=== PATIENT | female | born 2000 | race Caucasian/White ===

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

== ENCOUNTER 2022-07-10 19:12 | Emergency (ER) | payer OTHER, SELFPAY ==
[2022-07-10 19:29] VITALS: BP 100/61; PULSE 99; RESP 16; O2SAT 100
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
== END 2022-07-10 21:17 | disposition home or self-care (01) ==
PROVIDERS: Emergency Provider Registered Nurse; PCP Student in an Organized Health Care Education/Training Program
DX: R07.89 Other chest pain (principal); J45.909 Unspecified asthma, uncomplicated
CPT/HCPCS: 99211; 99213; G0463

== ENCOUNTER 2023-12-07 13:35 | Emergency (ER) | payer MEDICAID, SELFPAY ==
[2023-12-07 13:57] VITALS: BP 108/51; PULSE 86; RESP 14; TEMP 37; O2SAT 99
--- NOTE | 2023-12-07 14:01 | ED.URI ---
HPI - URI/Sore Throat General Chief Complaint: Upper Respiratory Infection Stated Complaint: Shortness of Breath/Runny Nose/Cough Time Seen by Provider: 12/07/23 14:01 Source: patient, RN notes reviewed and old records reviewed Mode of arrival: ambulatory Limitations: no limitations History of Present Illness HPI Narrative: 23-year-old female to Express Care for complaint of runny nose, sore throat, cough, body aches. Patient states the symptoms have been going on for a week and that she took a COVID test at home that was negative. patient is 15 weeks . Patient denies nausea, vomiting, fever, abdominal pain, allergies Or pertinent medical history. Patient able to tolerate fluids by mouth. Related Data Allergies Allergy/AdvReac Type Severity Reaction Status Date / Time shellfish derived Allergy Unknown Verified 04/09/21 14:41 Review of Systems Review of Systems: All systems reviewed & are unremarkable except as noted in HPI and below Constitutional: Constitutional: Reports body ache(s) and Denies fever(s) Eyes: Eyes: Reports no additional eye complaints ENT: Reports as per HPI, Reports nasal congestion, Reports nasal discharge and Reports sore throat Cardiovascular: Cardiovascular: Reports no additional cardiovascular complaints, Denies chest pain and Denies dyspnea Respiratory: Respiratory: Reports no additional respiratory complaints, Reports cough and Denies dyspnea Musculoskeletal: Musculoskeletal: Reports no additional musculoskeletal complaints Neurologic: Reports system reviewed and no additional complaints, except as documented Psychiatric: Psychiatric: Reports no additional psychiatric complaints PMFSH Past Medical History Medical History Anxiety and depression Asthma Surgical History Surgical History History of tonsillectomy Social History Social History Gender identity (if verbalized by the patient): Female Comments At the time of my signature, I reviewed and agree with the nursing past medical, surgical, social, and family history. There is no relevant family history pertinent to the patient complaint. Exam Const: General: cooperative, comfortable, no acute distress, alert, tired appearing and well nourished Nutritional Appearance: well nourished Orientation/consciousness: patient oriented x3 Limitations: no limitations HENMT: Head: normal to inspection Ears: external ears normal Face/Nose/Sinus: Normal external nose present, Normal nares present, normal facial exam, No erythema and No edema Face and sinus: normal facial exam, no erythema and no edema Mouth: Yes Normal oral and palatal mucosa present Throat: posterior oropharynx abnormal erythema and postnasal drainage Eyes: General: appearance normal, both eyes and all related structures Neck: Neck: normal visual inspection, full ROM and no meningeal signs Lymphatic: no lymphadenopathy noted and no lymphedema noted Chest: Chest palpation & inspection: normal inspection of the chest Resp: Effort & Inspection: normal respiratory effort and able to speak in complete sentences Auscultation: clear to auscultation bilaterally Cardio: Jugular venous distension: no JVD Rate: regular rate Rhythm: regular rhythm Back/Spine/Pelvis: Cervical Spine: cervical ROM normal Skin: General skin exam: normal color, no rashes or lesions noted and turgor normal Neuro: General: patient oriented x3, gait normal, moves all extremities and no meningeal signs Speech: normal speech Gait exam (Neuro): Normal gait present Extrem: General: normal to inspection, full ROM and capillary refill normal Psych: Appearance: grossly normal and well kempt Course Course Emergency Course: Some parts of this dictation were generated by voice recognition software and may cont
== END 2023-12-07 14:45 | disposition home or self-care (01) ==
PROVIDERS: Emergency Provider Nurse Practitioner Family; PCP Student in an Organized Health Care Education/Training Program
DX: J06.9 Acute upper respiratory infection, unspecified (principal); O99.512 Diseases of the respiratory system complicating pregnancy, second trimester; Z3A.15 15 weeks gestation of pregnancy; J45.909 Unspecified asthma, uncomplicated
CPT/HCPCS: 99211; G0463

== ENCOUNTER 2024-10-13 10:37 | Emergency (ER) | payer OTHER, SELFPAY ==
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
--- OUTSIDE RECORDS SUMMARY | 2024-10-13 10:41 | XMS_ITS | Referral Summary ---
Author Organization [facility] [employer] Address [address] [place] [address] Care Team Providers Care Conveyor Maintenance Mechanic Name Role Phone Delores Rivera MD Unavailable [phone] Robinson Rivera MD Primary Care Provider + Nirali Cordero LCSW Unavailable Unavailabl e Source Comments [facility],non-owned Affiliates and Associated Physician Practices is amultiple site organization consisting of ambulatory clinics and hospital sitesin [place], [place], [place] and [place]. This disclosure is being madepursuant to the Care Everywhere program and may not contain all information available regarding this patient. Last updated 18.[facility] Allergies Active Allergy Reactions Criticality Noted Date [...] naloxone HCl (NARCAN) 4 MG/0.1ML nasal spray Lavelle 1 (one) spray into the nose as [...] prim igravida 04/29/2021 Overview (06/24/2021): [facility] [place], Care Everywhere. PNL: B+/I/-/-, HIV NR Pap: [...] status Immunizations Name Administration Dates Next Due CovNuroa primary monoval ent 12+ yr 0.3mL Purple [...] 03/26/2008, 7,07/16/2003,11/19,2002 TDAP (7yrs+) 11/21/2013 VARICELLA 03/26/2008,10/23/2003 Social History Tobacco Use Types Packs/Day Years [...] C ST Body Mass Index - - Functional Status Functional Status Response Date of Assess ment Is person deaf or have serious hearing difficult y? No 06/08/2018 Is person blind or have serious difficulty seein g? No 06/08/2018 Does person have serious dif ficulty walking/climbing stairs? No 06/08/2018 Does person have difficulty dressing/bathing? No 06/08/2018 Does person have difficulty doing errands alone? No 06/08/2018 Cognitive Status Response Date of Assessm ent Does person have difficulty concentrating/remembering/making decisions? No 06/08/2018 Plan of Treatment Not on file Procedures Procedure Name Priority Date/Time Associated Diagnosis [...] AMPLIFIED PROBE (STL) (06/24/2021 1:23 PM CDT) Chlamydia Amplified Probe Negative Negative 06/25/2021 2:47 AM CDT [facility] GC Amplified Probe Negative Negative 06/25/2021 2:47 AM CDT [facility] Microbiology URINE / Unknown Collection / Unknown 06/24/2021 1:23 PM CDT 06/24/2021 2:16 PM CDT Narrative [facility] - 06/25/2021 2:47 AM CDT Results based on detection/no detection of ribosomal RNA by amplified method. Blanca Rodrigues [employer] [facility] - MICROBI OLOGY ORDERABLES [facility] [address] [place] [address], [facility] [phone] * HIV-1 HIV-2 ANTIBODY + HIV P24 AG PANEL (04/29/2021 2:18 PM CDT) HIV1/2 Ab + P24 Ag Non Reactive Non Reactive 04/29/2021 4:34 PM CDT [facility] Blood BLOOD SPECIMEN / Unknown Venipuncture / Unknown 04/29/2021 2:18 PM CDT 04/29/2021 3:10 PM CDT Narrative [facility] - 04/29/2021 4:34 PM CDT No Laboratory evidence of HIV infection. Sho Chung MD LAB - CHEMISTRY OR DERABLES Performing Organization Address City/[facility]/ZIP Co de Phone Number [facility] [address] [place] [address] * HEPATITIS C ANTIBODY (04/29/2021 2:18 PM CDT) Pathologist [facility] HCV Antibody Screen Non Reactive Non Reactive 04/29/2021 4:34 PM CDT [facility] Blood BLOOD SPECIMEN / Unknown Venipuncture / Unknown 04/29/2021 2:18 PM CDT 04/29/2021 3:09 PM CDT Narrative [facility] - 04/29/2021 4:34 PM CDT Non Reactive - Antibodies to Hepatitis C virus (HCV) were not detected, result does not exclude early acute HCV infection. Sho Chung MD LAB - CHEMISTRY OR DERABLES [facility] [address] [place] [address] from Last 3 Months or Most Recently Relevant to Health Maintenance Insurance Payer Benefit Plan / Group Subscriber ID Effective Dates Phone Address Type MEDICAID [employer] [place] A[employer] BETTER HEALTH [facility] MEDICAID [id number] 06/21/2023-Pre sent [address] [place] [address] Medicaid Managed Care [place] MEDICAID - [facility] COMMUNITY PLAN C/COMMUNIT Y PLAN MEDICAID [id number] Effective for all dates [phone] [address] [place] [address] Medicaid Managed Care MEDICAID - OUT OF STATE MEDICAID [place] PUBLIC AID [id number] Effective for all dates [address] [address] [place] [address] Medicaid MEDICAID - OUT OF STATE MEDICAID [place] [id number] Effective for all dates [address] [address] [place] [address] Medicaid MEDICAID - OUT OF STATE MEDICAID [place] PUBLIC AID [id number] Effective for all dates [address] [address] [place] [address] Medicaid MEDICAID - OUT OF STATE MEDICAID [place] PUBLIC [place] [id number] Effective [place] [place] [address] Medicaid MEDICAID - OUT OF [facility] MEDICAID - [place] PUBLIC AID [id number] Effective [place] [address] [place] [address] Medicaid MEDICAID - OUT OF STATE MEDICAID [facility] PUBLIC AID [id number] Effective for all dates [address] [address] [place] [address] Medicaid [facility] MEDICAID [id number] Effective for all dates [phone] ATTN CLAIMS DEPARTMENT [address] [address] Medicaid Managed Care [facility] [employer] MEDICAID [id number] Effective for all dates [phone] ATTN CLAIMS DEPARTMENT 1 [facility], [address] [address] Medicaid Managed Care MEDICAID - OUT OF STATE MEDICAID [place] PUBLIC AID [id number] 07/21/2018-Pre sent [address] [address] [place] [address] Medicaid MEDICAID - OUT OF STATE MEDICAID - [place] PUBLIC AID [id number] Effective [place] [address] Medicaid MEDICAID - OUT OF STATE MEDICAID - [place] PUBLIC AID [id number] Effective for all dates [address] [address] [place] [address] Medicaid MEDICAID - OUT OF STATE MEDICAID - [place] PUBLIC AID [id number] Effective for all dates [address] [address] [place] [address] Medicaid MEDICAID - OUT OF STATE MEDICAID - [place] PUBLIC AID [id number] Effective for all dates [address] [address] [place] [address] Medicaid MEDICAID - OUT OF STATE MEDICAID [facility] PUBLIC AID [id number] Effective for all dates [address] [address] [place] [address] Medicaid [facility] [id number] Effective for all dates [address] [address] [place] [address] Medicaid Managed Care MEDICAID - OUT OF STATE MEDICAID - [place] PUBLIC AID [id number] Effective for all dates [address] [address] [place] [address] Medicaid [employer] Personal/Family Other [address] [place] [address] [employer] Personal/Family Other [address] [place] [address] [employer] Personal/Family Other [address] [place] [address] [employer] Personal/Family Other [address] [place] [address] [employer] Personal/Family Other [address] [place] [address] [employer] MILYSERVICES Personal/Family Other [address] [place] [address] [employer] Personal/Family Other [address] [place] [address] [employer] MIL[employer] Personal/Family Other [address] [place] [address] [employer] LISBETHERVICES Personal/Family Other [address] [place] [address] [employer] MILMICHELERVICES Personal/Family Other [address] [place] [address] [employer] Personal/Family Other [address] [address] [employer] MILMICHELERVICES Personal/Family Other [address] [address] JULIANA BOATENG Personal/Family Other [address] [place] [address] Advance Directives * Full Code (Latest Code Status on File) Date Activated Date Inactivated Comments 06/08/2018 4:22 AM 06/15/2018 9:06 AM * Full Code Date Activated Date Inactivated Comments 02/28/2018 5:54 AM 03/09/2018 3:41 PM Care Teams Conveyor Maintenance Mechanic Relationship Specialty Start Date End Date Robinson Rivera MD PCP - General Pediatrics 04/08/19 Delores Rivera MD 06/10/18 Nirali Cordero LCSW Outpatient Pediatric Orthodontist 05/27/21
--- OUTSIDE RECORDS SUMMARY | 2024-10-13 10:41 | XMS_ITS | Referral Summary ---
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 Interpretive Data Reference Interval Normal >/= 90 mL/min/1.73m2 Mildly decreased* 60 - 89 mL/min/1.73m2 Mildly to moderately decreased 45 - 59 mL/min/1.73m2 Moderately to severely decreased 30 - 44 mL/min/1.73m2 Severely decreased 15 - 29 mL/min/1.73m2 Kidney Failure < 15 mL/min/1.73m2 *Relative to young adult level Estimated glomerular filtration rate is determined by the 2020 CKD-EPI equation recommended by the National Kidney Foundation (A Unifying Approach to GFR Estimation: Recommendations of the NKF-ASK Task Force on Reassessing the Inclusion of Race in Diagnosing Kidney Disease, JASN 2020). The CKD-EPI equation should not be used for patients with unstable renal function and has not been validated in children and those over 70. Current interpretive data was last reviewed 2021. Blood 08/04/2024 10:0 4 AM TEXTILE CONVERSION MANAGER 08/04/2024 10:07 AM TEXTILE CONVERSION MANAGER us Savannah De Santiago MD LAB BLOOD ORDERABLE S Final Result [facility] ([place] 1 [facility] Department [place] [address] * Differential, auto (08/04/2024 10:04 AM TEXTILE CONVERSION MANAGER) Neutrophil abs 1.8 1.5 - 6.5 K/cumm Imm gran abs 0.0 0.0 - 0.1 K/cumm [facility] [place] Lymphocyte abs 1.8 0.8 - 3.3 K/cumm [facility] [place] Monocyte abs 0.4 0.2 - 0.8 K/cumm [facility] [place] Eosinophil abs 0.1 0.0 - 0.5 K/cumm [facility] [place] Basophil abs 0.0 0.0 - 0.1 K/cumm [facility] [place] Neutrophil pct 43.1 % [facility] ([place]) Comment: Interpretive Data Percent cell count reference ranges are not reported, since discordance with absolute values may lead to misinterpretation of CBC data. Current Interpretive Data was last revised on 2017. Imm gran pct 0.2 % [facility] ([place] Comment: Interpretive Data Percent cell count reference ranges are not reported, since discordance with absolute values may lead to misinterpretation of CBC data. Current Interpretive Data was last revised on 2017. Lymphocyte pct 43.6 % [facility] ([place] Comment: Interpretive Data Percent cell count reference ranges are not reported, since discordance with absolute values may lead to misinterpretation of CBC data. Current Interpretive Data was last revised on 2017. Monocyte pct 9.2 % [facility] ([place] Comment: Interpretive Data Percent cell count reference ranges are not reported, since discordance with absolute values may lead to misinterpretation of CBC data. Current Interpretive Data was last revised on 2017. Eosinophil pct 2.9 % [facility] ([place] Comment: Interpretive Data Percent cell count reference ranges are not reported, since discordance with absolute values may lead to misinterpretation of CBC data. Current Interpretive Data was last revised on 2017. Basophil pct 1.0 % [facility] ([place] Comment: Interpretive Data Percent cell count reference ranges are not reported, since discordance with absolute values may lead to misinterpretation of CBC data. Current Interpretive Data was last revised on 2017. Blood 08/04/2024 10:0 4 AM TEXTILE CONVERSION MANAGER 08/04/2024 10:07 AM TEXTILE CONVERSION MANAGER Jimmie Vargas MD LAB BLOOD ORDERABLES Final R esult [facility] ([place]) 1 [facility] Department [place] [address] * CBC with auto differential (08/04/2024 10:04 AM TEXTILE CONVERSION MANAGER) WBC 4.1 3.8 - 9.9 K/cumm Hgb 13.3 11.9 - 15.5 g/dL [facility] [place] Hct 38.4 35.6 - 45.5 % [facility] [place] Plt 258 150 - 400 K/cumm [facility] [place] MPV 10.2 9.1 - 12.3 fL [facility] [place] RBC 4.44 3.90 - 5.20 M/cumm [facility] [place] MCV 86.5 81.3 - 96.4 fL [facility] [place] MCH 30.0 27.1 - 33.3 pg [facility] [place] MCHC 34.6 32.3 - 35.7 g/dL [facility] [place] RDW CV 12.6 11.1 - 14.9 % [facility] [place] RDW SD 39.9 35.7 - 48.1 fL [facility] [place] NRBC abs 0.00 0.00 - 0.01 K/cumm [facility] [place] Blood 08/04/2024 10:0 4 AM TEXTILE CONVERSION MANAGER 08/04/2024 10:07 AM TEXTILE CONVERSION MANAGER us Jimmie Vargas MD LAB BLOOD ORDERABLES Final R esult Performing Organization Address City/[facility]/ZIP Co de Phone Number [facility] ([place]) [address] [place] [address] [place] [address] * ABO/Rh (08/04/2024 10:04 AM TEXTILE CONVERSION MANAGER) ABO/Rh B Positive Blood 08/04/2024 10:0 4 AM TEXTILE CONVERSION MANAGER 08/04/2024 10:07 AM TEXTILE CONVERSION MANAGER Narrative [facility] ([place]) - 08/04/2024 11:00 AM TEXTILE CONVERSION MANAGER Has the patient had Daratumumab or Isatuximab in the past 6 months?->Unknown us Savannah De Santiago MD LAB BLOOD BANK TEST ORDERABLES Final Result Performing Organization Address City/[facility]/ZIP Co de Phone Number [facility] ([place]) [address] [place] [address] [place] [address] * Antibody screen (08/04/2024 10:04 AM TEXTILE CONVERSION MANAGER) Carlotta, indirect, Gel Interpretation Negative ABSC Blood 08/04/2024 10:0 4 AM TEXTILE CONVERSION MANAGER 08/04/2024 10:07 AM TEXTILE CONVERSION MANAGER Narrative [facility] ([place] - 08/04/2024 11:00 AM TEXTILE CONVERSION MANAGER Has the patient had Daratumumab or Isatuximab in the past 6 months?->Unknown us Savannah De Santiago MD LAB BLOOD BANK TEST ORDERABLES Final Result [facility] ([place]) 1 [facility] Department [place] [address] * (ABNORMAL) Comprehensive metabolic panel (08/04/2024 10:04 AM TEXTILE CONVERSION MANAGER) Sodium 139 135 - 145 mmol/L Potassium, pl 4.3 3.3 - 4.9 mmol/L [facility] [place] Chloride 108 97 - 110 mmol/L [facility] [place] CO2 21(L) 22 - 32 mmol/L [facility] [place] Anion gap 10 2 - 15 mmol/L [facility] [place] BUN 8 6 - 25 mg/dL [facility] [place] Creatinine 0.77 0.60 - 1.10 mg/dL [facility] [place] Glucose 87 70 - 199 mg/dL [facility] ([place] Comment: Interpretive Data Fasting glucose >/= 126 mg/dl is diagnostic for diabetes. Fasting is defined as no caloric intake for at least 8 hours. Fasting glucose between 100 mg/dl to 125 mg/dl is diagnostic of prediabetes. In a patient with classic symptoms of hyperglycemia or hyperglycemic crisis, a random glucose >/= 200 mg/dl is diagnostic for diabetes. In the absence of unequivocal hyperglycemia, results should be confirmed by repeat testing. The classification and Diagnosis of Diabetes Diabetes Care 2021; 46: S19-S40. Current interpretive data was last revised 2022. Calcium 9.5 8.5 - 10.3 mg/dL [facility] [place] Bilirubin, total 0.4 0.1 - 1.2 mg/dL [facility] [place] Protein, pl 7.4 6.5 - 8.5 g/dL [facility] [place] Albumin 4.8 3.5 - 5.0 g/dL [facility] [place] Alk phos 42 40 - 130 Units/L [facility] [place] ALT 12 7 - 45 Units/L [facility] [place] AST 13 10 - 45 Units/L [facility] [place] Blood 08/04/2024 10:0 4 AM TEXTILE CONVERSION MANAGER 08/04/2024 10:07 AM TEXTILE CONVERSION MANAGER Jimmie Vargas MD LAB BLOOD ORDERABLES Final R esult [facility] ([place]) 1 [facility] Department [place] [address] * Hepatitis C antibody Blood (11/21/2023 2:23 PM CDT) Hep C Ab Nonreactive Nonreactive Comment: Interpretive Data Nonreactive: Antibodies to HCV not detected. Does NOT exclude the possibility of recent exposure to HCV. Equivocal: Equivocal for HCV antibodies. Supplemental molecular testing will be automatically performed to determine infection status in accordance with current CDC screening recommendations. Reactive: Positive for HCV antibodies. This may represent current or past HCV infection. Supplemental molecular testing will be automatically performed to determine current infection status in accordance with current CDC screening recommendations. Interpretive data was last revised on 2019. Testing performed by: [facility], [address] [place] [address]., [id number] Blood 11/21/2023 2:23 PM CDT 11/21/2023 8:21 PM CDT Jennifer Alford DO LAB MICROBIOLOGY - GENE RAL ORDERABLES Final Result Performing Organization Address City/[facility]/ZIP Co de Phone Number AIDAN [address] [facility] [place] [address] * N. gonorrhoeae/C. trachomatis Amplification Thin prep (10/25/2023 11:48 AM TEXTILE CONVERSION MANAGER) C. trachomatis Not Detected [facility] Comment:Testing performed by : [facility], [address] [place] [address]., [id number] N. gonorrhoeae Not Detected AIDAN Comment: Interpretive Data This assay detects Chlamydia trachomatis and Neisseria gonorrhoeae by nucleic acid amplification testing (NAAT). This assay has been cleared by the [place] Food and Drug administration. The performance characteristics of this test have been verified by the [facility] Molecular Infectious Disease laboratory. The performance characteristics of this test have not been evaluated in individuals less than 14 years of age. Current Interpretive Data was last revised on 2023. Testing performed by: [facility], [address] [place]., [address] Thin prep 10/25/2023 11:4 8 AM TEXTILE CONVERSION MANAGER 10/26/2023 12:38 PM TEXTILE CONVERSION MANAGER us Jennifer Alford DO LAB MICROBIOLOGY - GENE RAL ORDERABLES Final Result [address] [place] [address] [facility] * Pap with reflex to High Risk HPV and Genotyping (Cytology Component) (10/25/2023 10:04 AM TEXTILE CONVERSION MANAGER) Thin prep (Pap test) 10/25/2023 10:04 AM TEXTILE CONVERSION MANAGER 10/25/2023 10:04 AM TEXTILE CONVERSION MANAGER Narrative PATHOLOGY CH - 10/27/2023 3:00 PM TEXTILE CONVERSION MANAGER [facility] Department of Pathology [address] [place] [id number] Final Report Note to Patients: This report may contain a detailed description of human tissue sent by a health care provider to the laboratory for pathologic evaluation. The content of this report is essential for diagnosis and may provide important critical findings. This information may be unfamiliar to patients to review without a medical professional present. It is advised that the patient review this report in the presence of a health care provider who can answer questions and explain the details. Patient Name: GUILLERMINA SOUZA Address: [address] [place] [address] Gender: F : 2000 (Age: 23) Service: Location: Hospital #: [id number] Patient Type: SPECIMEN Taken: 10/25/2023 Received: 10/25/2023 Accessioned:: 10/26/2023 Reported: 10/27/2023 Physician(s): Joe Chew D.O. Diagnosis: SOURCE OF SPECIMEN Imaged Thinprep Pap Test w/ Reflex HPV - Installer Soft Top Cytologic Material: STATEMENT OF ADEQUACY - Satisfactory for evaluation; endocervical/transformation zone component present GENERAL CATEGORIZATION: - Negative for intraepithelial lesion or malignancy INTERPRETATION: - Numerous inflammatory cells present FRANCIS Armenta(ASCP) Report Electronically Reviewed and Signed Out By FRANCIS Armenta(ASCP) 10/27/2023 15:00:31Specimen(s) Received: A: Imaged Thinprep Pap Test w/ Reflex HPV - Installer Soft Top Cytologic Material Clinical History: Last Menstrual Period: 08/24/23 Menstrual History: The Pap test is a screening test used to aid in the detection of cervical cancer and its precursors. It should not be the sole means by which malignant and premalignant lesions are diagnosed. Both false negative and false positive results may occur. It also has poor sensitivity for the detection of endometrial lesions and should not be used to evaluate suspected endometrial abnormalities. For these reasons it is most important to obtain Pap tests at regular intervals. The performance characteristics of some immunohistochemical stains, fluorescence in-situ hybridization tests and immunophenotyping by flow cytometry cited in this report (if any) were determined by the Surgical Pathology Department at [facility] as part of an ongoing senior quality control technician program and in compliance with federally mandated regulations drawn from the Clinical Laboratory Improvement Act of 1988 (CLIA '88). Some of these tests rely on the use of analyte specific reagents and are subject to specific labeling requirements by the [place] Food and Drug Administration. Such diagnostic tests may only be performed in a facility that is certified by the Department of Health and Human Services as a high complexity laboratory under CLIA '88. The FDA has determined that such clearance or approval is not necessary. This test is used for clinical purposes. It should not be regarded as investigational or for research. Nevertheless, federal rules concerning the medical use of analyte specific reagents require that the following disclaimer be attached to the report: This test was developed and its performance characteristics determined by the Surgical Pathology Department [facility]. It has not been cleared or approved by the [place]. [place]. Food and Drug Administration. Jennifer Alford DO LAB CYTOLOGY ORDERABLES Final Result PATHOLOGY [address] [place] [address] from Last 3 Months or Most Recently Relevant to Health Maintenance Insurance [facility] Advance Directives For more information, please contact: [phone] * Full Code (Latest Code Status on File) Date Activated Date Inactivated Comments 05/02/2024 8:45 AM 05/05/2024 4:20 AM * Full Code Date Activated Date Inactivated Comments 05/02/2024 5:42 AM 05/02/2024 8:45 AM Full CPR in case of cardiopulmonary arrest Care Teams Analytics Leader Relationship Specialty Start Date End Date Robinson Rivera MD PCP - General 04/06/22 Robinson Rivera MD Pediatrics 04/06/22 Robinson Rivera MD 08/29/18 Raegan Parra 02/28/18 Jennifer Alford DO [address] [place] [address] Consulting Physician Obstetrics and Gynecology 05/04/24
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
--- OUTSIDE RECORDS SUMMARY | 2024-10-13 10:41 | XMS_ITS | Patient Health Summary ---
Author Organization [facility] Address [address] [place] [address] Care Team Providers Care Junk Removal Specialist Name Role Phone Delores Rivera MD Unavailable [phone] Robinson Rivera MD Primary Care Provider + Nirali Cordero LCSW Unavailable Unavailabl e Note from [facility],non-owned Affiliates and Associated Physician Practices is amultiple site organization consisting of ambulatory clinics and hospital sitesin [place], [place], [place] and [place]. This disclosure is being madepursuant to the Care Everywhere program and may not contain all information available regarding this patient. Last updated 18.[facility] Allergies * Sulfamethoxazole W-Trimethoprim(Urticaria) -Medium Criticality * Cefuroxime(Urticaria) -Medium Criticality * Shellfish Allergy(Urticaria) -Medium Criticality * Sulfamethoxazole(Urticaria) -Medium Criticality * Tramadol(Urticaria) -Medium Criticality * Trimethoprim(Urticaria) -Medium Criticality * Penicillins(Urticaria) -Medium Criticality,Inactive * Trazodone(Urticaria) -Medium Criticality,Inactive Medications * Be aware that medications may not be up to date on this document. Alwaysverify current medications with the patient. * acyclovir (ZOVIRAX) 400 MG tablet Take 400 mg by mouth 2 times daily * Vit-Fe Fumarate-FA ( VITAMINS) 28-0.8 MG TABS(Started 04/12/2021) Take 1 tablet by mouth once daily * naloxone HCl (NARCAN) 4 MG/0.1ML nasal spray(Started 04/29/2021) [place] 1 (one) spray into the nose as needed (May repeat every 2 min in alternating nostrils until emergency medical help arrives for overdose) * plus iron (NATATAB) 29-1 MG tablet(Started 04/29/2021) Take 1 (one) tablet by mouth once daily 11 refills by 04/29/2022 * albuterol HFA (PROVENTIL;VENTOLIN;PROAIR) 108 (90 Base) MCG/ACT inhaler (Started 04/29/2021) Inhale 2 (two) puffs by mouth every 6 hours as needed for Shortness of Breath or Wheezing 4 refills by 04/29/2022 * pyridoxine (VITAMIN B-6) 25 MG tablet(Started 04/29/2021) Take 2 (two) tablets by mouth 3 times daily 2 refills by 04/29/2022 * doxylamine (UNISOM) 25 MG tablet(Started 04/29/2021) Take 1 (one) tablet by mouth at bedtime 2 refills by 04/29/2022 * ondansetron, disintegrating, (ZOFRAN ODT) 4 MG tablet(Started 04/29/2021) Take 1 (one) tablet by mouth every 6 hours as needed for Nausea/Vomiting Allow tablet to dissolve on the tongue 1 refill by 04/29/2022 * nicotine ( NICOTINE TRANSDERMAL SYSTEM) 14 MG/24HR patch(Started 05/27/2021) Apply 1 (one) patch to skin once [...] patch should be applied in the morning. 3 refills by 05/27/2022 * nicotine polacrilex (COMMIT) 2 MG(Started 06/24/2021) Take 1 (one) Each by mouth as needed Dissolve slowly in mouth over 20-30 minutes; occasionally movelozenge from one side of mouth to the other until completely dissolved. Minimize swallowing; do notchew or swallow. MAX: 20 lozenges/day Reasons: Nicotine Addiction * fluticasone-salmeterol (ADVAIR/WIXELA) 250-50 MCG/DOSE inhaler(Started 06/24/2021) Inhale 1 (one) puff by mouth 2 times daily Reasons: Asthma Active Problems Problem Noted Date Diagnosed Date 26 weeks gestation of 07/21/2021 Trichomonas vaginitis 05/31/2021 Group B Streptococcus urinar y tract infection affecting in second trimester 05/31/2021 Gonorrhea affecting 05/27/2021 Screening, , for risk of pre-term labor 05/27/2021 High risk social situation 05/11/2021 Marijuana use 05/11/2021 Supervision of high-risk of young prim igravida 04/29/2021 Mild intermittent asthma without complication Screening, , for malformation by ultras ound 04/29/2021 Opioid use disorder, severe, in sustained remiss ion 04/27/2021 Methamphetamine use disorder, severe, in early r emission 04/27/2021 Migraine without aura and wi thout status migrainosus, not intractable 04/12/2020 Depression PTSD (post-traumatic stress disorder) Resolved Problems Problem Noted Date Diagnosed Date Resolved Date Suspected UTI 05/27/2021 06/25/2021 Acute knee pain 03/04/2018 03/08/2018 STD (sexually transmitted disease) 03/01/2018 03/07/2018 Immunizations * Covid Pfizer primary monovalent 12+ yr 0.3mL Purple cap(Given 05/21/2021, 04/29/2021) * DTAP, HISTORIC VACCINE(Given 04/17/2007) * DTaP VACCINE IM (6wk-6yrs)(Given 07/16/2003, 02/17/2003, 2002, 2002) * HEP A PEDS 2 DOSE(Given 09/03/2004) * HEP B VACCINE, PED/ADOL(Given 02/17/2003, 2002, 2002) * HIB VACCINE(Given 10/23/2003, 02/17/2003, 2002, 2002) * Hep A Peds 3 Dose(Given 01/05/2006) * Human Papilloma Virus Ninevalent Vaccine(Given 03/22/2018, 07/31/2015, 05/26/2015) * INFLUENZA VACCINE, QUADR. (FLUZONE; FLULAVAL; FLUARIX; AFLURIA QUADRIVALENT; 6MO+), 0.5 ML (IIV4)(Given 05/21/2021, 05/13/2019, 06/06/2018, 05/26/2015) * MENINGOCOCCAL CONJUGATE (MCV4P)(Given 11/21/2013) * MENINGOCOCCAL MCV4O(Given 07/19/2018) * MMR(Given 03/26/2008, 07/16/2003) * PNEUMOCOCCAL PCV7 CONJ, PEDS(Given 02/17/2003, 2002, 2002) * POLIO IPV(Given 03/26/2008, 04/16/2007, 07/16/2003, 2002, 2002) * TDAP (7yrs+)(Given 11/21/2013) * VARICELLA(Given 03/26/2008, 10/23/2003) Social History Tobacco Use Types Packs/Day Years [...] C ST Body Mass Index - - Procedures * SONOGRAM - COMPLETE(Performed 06/24/2021) Performed for Opioid use disorder, severe, in sustained remission ([facility]), Methamphetamine use disorder, severe, in early remission ([facility]) * CULTURE URINE(Performed 06/24/2021) Performed for Group B Streptococcus urinary tract infection affecting in second trimester([facility]) * CHLAMYDIA + GC AMPLIFIED PROBE(Performed 06/24/2021) Performed for Gonorrhea affecting in second trimester ([facility]) * TRICHOMONAS VAGINALIS AMPLIFIED PROBE(Performed 06/24/2021) Performed for Trichomonas vaginitis * URINE DRUG SCREEN IMMUNOASSAY(Performed 06/24/2021) Performed for Supervision of high-risk of young primigravida ([facility]) * GLUCOSE PROTEIN KETONE URINE - POINT OF CAR(Performed 06/24/2021) Performed for Supervision of high-risk of young primigravida ([facility]) * URINE MICROSCOPIC ONLY REFLEX TO CULTURE(Performed 05/27/2021) Performed for Dysuria * URINALYSIS REFLEX MICROSCOPIC REFLEX CULTURE(Performed 05/27/2021) Performed for Dysuria * CULTURE URINE(Performed 05/27/2021) Performed for Dysuria * TRICHOMONAS VAGINALIS AMPLIFIED PROBE(Performed 05/27/2021) Performed for Vaginal discharge during in second trimester ([facility]) * GLUCOSE PROTEIN KETONE URINE - POINT OF CAR(Performed 05/27/2021) Performed for Supervision of high-risk of young primigravida ([facility]) * SONOGRAM - COMPLETE(Performed 05/27/2021) Performed for Methamphetamine use disorder, severe, in early remission ([facility]), Opioid use disorder, severe, in sustained remission ([facility]) * URINE DRUG SCREEN IMMUNOASSAY(Performed 05/27/2021) Performed for Supervision of high-risk of young primigravida ([facility]) * URINE DRUG SCREEN IMMUNOASSAY(Performed 04/29/2021) Performed for Supervision of high-risk of young primigravida ([facility]) * CULTURE URINE(Performed 04/29/2021) Performed for Supervision of high-risk of young primigravida ([facility]) * TRICHOMONAS VAGINALIS AMPLIFIED PROBE(Performed 04/29/2021) Performed for Supervision of high-risk of young primigravida ([facility]) * TYPE + SCREEN PANEL(Performed 04/29/2021) Performed for Supervision of high-risk of young primigravida (HCC) * TSH REFLEX FREE T4(Performed 04/29/2021) Performed for Supervision of high-risk of young primigravida (HCC) * CYSTIC FIBROSIS MUTATION PANEL(Performed 04/29/2021) Performed for Supervision of high-risk of young primigravida (HCC) * RUBELLA ANTIBODY IGG(Performed 04/29/2021) Performed for Supervision of high-risk of young primigravida (HCC) * SYPHILIS ANTIBODY CASCADING REFLEX(Performed 04/29/2021) Performed for Supervision of high-risk of young primigravida (HCC) * CBC W AUTO DIFFERENTIAL(Performed 04/29/2021) Performed for Supervision of high-risk of young primigravida (HCC) * HEPATITIS B SURFACE ANTIGEN W RFLX CONFIRMATION(Performed 04/29/2021) Performed for Supervision of high-risk of young primigravida (HCC) * HEPATITIS C ANTIBODY(Performed 04/29/2021) Performed for Supervision of high-risk of young primigravida (HCC) * HEPATITIS B SURFACE ANTIGEN W RFLX CONFIRMATION(Performed 04/29/2021) Performed for Supervision of high-risk of young primigravida (HCC) * HIV-1 HIV-2 ANTIBODY + HIV P24 AG PANEL(Performed 04/29/2021) Performed for Supervision of high-risk of young primigravida (HCC) * COMPREHENSIVE METABOLIC PANEL(Performed 04/29/2021) Performed for Supervision of high-risk of young primigravida (HCC) * SONOGRAM - COMPLETE(Performed 04/29/2021) Performed for Methamphetamine use disorder, severe, in early remission ([facility]), Opioid use disorder, severe, in sustained remission ([facility]), Establish gestational age, ultrasound ([facility]) * EEG(Performed 11/21/2018) Performed for Seizure ([facility]) * XR PELVIS W BILAT HIP 2VW(Performed 09/28/2018) Performed for Hip impingement syndrome, left * XR PELVIS 1 OR 2VW(Performed 09/28/2018) Performed for Arthralgia of hip, unspecified laterality * BACTERIAL VAGINOSIS + YEAST SMEAR(Performed 06/14/2018) * TRICHOMONAS VAGINALIS AMPLIFIED PROBE(Performed 06/14/2018) * XR CHEST 2VW(Performed 06/13/2018) Performed for Chest pain, unspecified type * URINALYSIS W/MICROSCOPIC REFLEX TO CULTURE(Performed 06/08/2018) * DRUG SCREEN TOX COMPREHESIVE PANEL(Performed 06/08/2018) * CULTURE URINE(Performed 06/08/2018) * CHLAMYDIA + GC AMPLIFIED PROBE(Performed 06/08/2018) * HCG URINE QUAL POCT NOTIFICATION(Performed 06/08/2018) * HCG URINE QUALITATIVE(Performed 06/08/2018) Performed for Vaginal discharge * RPR(Performed 06/08/2018) * HIV-1 HIV-2 ANTIBODY + HIV P24 AG PANEL(Performed 06/08/2018) * EKG 15-LEAD(Performed 06/08/2018) * CHLAMYDIA + GC AMPLIFIED PROBE(Performed 03/08/2018) * EKG 15-LEAD(Performed 03/06/2018) * EKG 15-LEAD(Performed 03/03/2018) * EKG 15-LEAD(Performed 02/28/2018) * URINALYSIS W/MICROSCOPIC REFLEX TO CULTURE(Performed 02/28/2018) * DRUG SCREEN TOX COMPREHESIVE PANEL(Performed 02/28/2018) * CULTURE URINE(Performed 02/28/2018) * CHLAMYDIA + GC AMPLIFIED PROBE(Performed 02/28/2018) * COMPREHENSIVE METABOLIC PANEL(Performed 02/28/2018) * CBC W AUTO DIFFERENTIAL(Performed 02/28/2018) * RPR(Performed 02/28/2018) * HIV-1 HIV-2 ANTIBODY + HIV P24 AG PANEL(Performed 02/28/2018) * XR SCOLIOSIS 1VW(Performed 03/24/2014) Performed for Scoliosis (and kyphoscoliosis), idiopathic Results * SONOGRAM - COMPLETE (06/24/2021 1:55 PM CDT) Only the most recent of3 resultswithin the time period is included. Anatomical Region Laterality Modality Other 06/24/2021 1:55 PM CDT Narrative 06/24/2021 3:18 PM CDT [facility] PHONE: FAX: Pat. Name: GUILLERMINA SOUZA. No: [id number] Study Date: 06/24/2021 1:55pm , Age: 13 2000, 20 Pregnancies: 1 Height: 62 in Weight: 190 lb LMP: Unknown GA by Base: 22w5d AGGIE: 10/23/2021 GA by US: 22w3d AGGIE: 10/25/2021 GA Selected: 22w5d (From [facility]) AGGIE: 10/23/2021 Referring MD: Sho Chung MD Spanish Lecturer: Makeda Santiago CPT4: 94139 BMI: 34.75 Hist/Ind: Incomplete anatomic survey History of heroin use Weight loss Teen Class I obesity NIPT: low risk (female) MEASUREMENTS & AGE GROWTH EVALUATION Measurement GA Range Srce %for GA Ratios ----- ---- ------- BPD 5.6 cm 23w1d ([id number]) Hadl BPD 63% FL/BPD 0.69 HC 21.4 cm 23w3d (96v1a-72w4q) Hadl HC 66% FL/AC 0.22 (0.20 - 0.24) AC 17.3 cm 22w2d (25y2e-73a8r) Hadl AC 27% HC/AC 1.24 (1.04 - 1.23* FL 3.9 cm 22w3d (78i8b-12g8w) Hadl FL 29% CI 0.72 (0.70 - 0.86) HL 3.8 cm 23w1d (84m9i-28p5r) Aditya HL 57% GA for sonogram 22w3d (22w3m-69v4w) Weight Estimate: based on (BPD,HC,AC,FL) [place] Weight: 506 gm (432-580gm) [place]loc : 1lbs, 1oz Normal: 541 gm (406-676gm) [place] Wt% 32% for 22w5d Heart Rate: 155 bpm Amniotic Fluid Index: 05.3cm (Deepest Pocket) EVAL, PLACENTA Presentation: cephalic Placenta: anterior Heart Rate: 155 bpm Amniotic Fluid Volume: normal Anatomy!Normal!Abnormal!Suboptimal!Prev. Seen!Comments Cranium ! ! ! ! x ! Mdl (CSP/Thal! ! ! ! x ! Ventricles ! ! ! ! x ! Choroid Plexu! ! ! ! x ! Cerebellum ! ! ! ! x ! Cerebellar Ve! ! ! ! x ! Cisterna M. ! ! ! ! x ! Nuchal Fold ! ! ! ! x ! Orbits ! x ! ! ! ! Profile ! x ! ! ! ! Nasal Bone ! x ! ! ! ! Lip ! ! ! ! x ! Maxilla ! x ! ! ! ! Mandible ! x ! ! ! ! Neck ! ! ! ! x ! Spine ! x ! ! ! ! Lungs ! ! ! ! x ! 4 Chamber Hea! ! ! ! x ! LVOT ! ! ! ! x ! RVOT ! x ! ! ! ! 3 Vessel View! ! ! ! x ! 3 Vessel Trac! x ! ! ! ! Cross-over ! x ! ! ! ! Ductal Arch ! x ! ! ! ! Aortic Arch ! x ! ! ! ! Caval View ! x ! ! ! ! Situs ! ! ! ! x ! Diaphragm ! ! ! ! x ! Stomach ! ! ! ! x ! Liver ! ! ! ! x ! Bowel ! ! ! ! x ! Kidneys ! ! ! ! x ! Bladder ! ! ! ! x ! 3 Vessel Cord! ! ! ! x ! Cord In! ! ! ! x ! Upper Extremi! ! ! ! x ! Hands ! ! ! ! x ! Lower Extremi! ! ! ! x ! Feet ! ! ! ! x ! External Ebony! ! ! ! x ! Placental Cor! ! ! ! x ! CLINICAL SUMMARY Study Number: 3 A single fetus is seen in cephalic presentation. The measurements today are consistent with appropriate interval growth. The AGGIE is based on a prior ultrasound. The amniotic fluid volume is within normal limits. anatomy was technically adequate. No major malformations were seen within the limitations of ultrasound. IMPRESSION: Single, live, intrauterine at 22w5d size is within normal limits Amniotic fluid volume: within normal limits RECOMMEND: Ultrasound in 4 weeks for growth Thank you for allowing us the opportunity to care for your patient. Franki Rod MD <Electronic Signature> 06/24/2021 03:17pm Franco Mulligan MD [facility] ORDERABLES * (ABNORMAL) TRICHOMONAS VAGINALIS AMPLIFIED PROBE (06/24/2021 1:23 PM CDT) Only the most recent of4 resultswithin the time period is included. Trichomonas vaginalis Amplified Probe Positive( A) Negative 06/25/2021 2:47 AM CDT [facility] Other URINE / Unknown Collection / Unknown 06/24/2021 1:23 PM CDT 06/24/2021 2:15 PM CDT Narrative [facility] - 06/25/2021 2:47 AM CDT This test was developed and its performance characteristics determined by the [facility], [facility]. Urine specimens tested by the [facility] have not been cleared or approved by the U.S. Food and Drug Administration (FDA). The laboratory is regulated under the Clinical Laboratory Improvement Amendments (CLIA) as qualified to perform high-complexity testing. This test is used for clinical purposes. It should not be regarded as investigational or for research. Results based on detection/no detection of ribosomal RNA by amplified method. Blanca Rodrigues APRN-[facility] ORDERABLES Performing Organization Address [facility] Co de Phone Number [facility] [address] [place] [address], [facility] [phone] * CHLAMYDIA + GC AMPLIFIED PROBE (STL) (06/24/2021 1:23 PM CDT) Chlamydia Amplified Probe Negative Negative 06/25/2021 2:47 AM CDT [facility] GC Amplified Probe Negative Negative 06/25/2021 2:47 AM CDT [facility] Microbiology URINE / Unknown Collection / Unknown 06/24/2021 1:23 PM CDT 06/24/2021 2:16 PM CDT Narrative [facility] - 06/25/2021 2:47 AM CDT Results based on detection/no detection of ribosomal RNA by amplified method. Blanca Rodrigues APRNFORMERLY [facility] ORDERABLES Performing Organization Address City/[facility]/ZIP Co de Phone Number [facility] [address] [place] [address], [facility] [phone] * CULTURE URINE (06/24/2021 1:23 PM CDT) Only the most recent of5 resultswithin the time period is included. Culture Urine <10,000 CFU/mL urogenital della GARY 06/25/2021 10:12 PM CDT [facility] Urine URINE SPECIMEN OBTAINED BY CLEAN CATCH PROCEDURE / Unknown Collection / Unknown 06/24/2021 1:23 PM CDT 06/24/2021 2:16 PM CDT Blanca E Lilia INTERPRETATIVE DANCER-CLINICAL NURSING PROFESSOR LAB - MICROBI OLOGY ORDERABLES [facility] [address] [place] [address], [facility] [phone] * (ABNORMAL) URINE DRUG SCREEN IMMUNOASSAY (06/24/2021 1:06 PM CDT) Only the most recent of3 resultswithin the time period is included. Pathologist [facility] Amphetamines Screen Urine Not detected Not detected 06/24/2021 3:13 PM CDT [facility] Barbiturates Screen Urine Not detected Not detected 06/24/2021 3:13 PM CDT [facility] Benzodiazepines Screen Urine Not detected Not detected 06/24/2021 3:13 PM CDT [facility] Cannabinoids Screen Urine Detected(A) Not detected 06/24/2021 3:13 PM CDT [facility] Cocaine Screen Urine Not detected Not detected 06/24/2021 3:13 PM CDT [facility] Fentanyl Urine Not detected Not detected 06/24/2021 3:13 PM CDT [facility] Methadone Screen Urine Not detected Not detected 06/24/2021 3:13 PM CDT [facility] Opiate Screen Urine Not detected Not detected 06/24/2021 3:13 PM CDT [facility] Phencyclidine Screen Urine Not detected Not detected 06/24/2021 3:13 PM CDT [facility] Urine URINE / Unknown Collection / Unknown 06/24/2021 1:06 PM CDT 06/24/2021 2:28 PM CDT Narrative [facility] - 06/24/2021 3:13 PM CDT This drug screen is designed for MEDICAL purposes only. It is not to be used for legal purposes, including but not limited to worker's comp, police investigations, occupational issues, child custody, etc. Any positive result is only presumptive and must be confirmed with a separate confirmatory test ordered by the physician. Drug Screening Test Cutoff Values: AMPHETAMINES 1000 ng/mL BARBITURATES 200 ng/mL BENZODIAZEPINES 200 ng/mL CANNABINOIDS(THC) 50 ng/mL COCAINE 300 ng/mL FENTANYL 1 ng/mL METHADONE 300 ng/mL OPIATES 300 ng/mL PHENCYCLIDINE(PCP) 25 ng/mL Edwige Rodriguez INTERPRETATIVE DANCER-CLINICAL NURSING PROFESSOR LAB - URINE [place]LLEN [place]IN[place] ORDERABLES Performing Organization Address [facility]/ZIP Co de Phone Number [facility] [address] [place] [id number] * GLUCOSE PROTEIN KETONE URINE - POINT OF CARE (06/24/2021 1:05 PM CDT) Only the most recent of2 resultswithin the time period is included. Glucose UA negative Negative [facility] Protein UA negative Negative [facility] Ketone UA neagtive Negative [facility] QC Verified Yes Yes [facility] POC T TESTING Urine URINE / Unknown 06/24/2021 1 :05 PM CDT Edwige Rodriguez APRNSAINT [facility] LAB - POINT OF CARE ORDERABLES Performing Organization Address [facility] de Phone Number [facility] [address] [place] [address] * (ABNORMAL) URINE MICROSCOPIC ONLY REFLEX TO CULTURE (05/27/2021 3:15 PM CDT) Reflex Status Culture to follow 05/27/2021 3:50 PM CDT [facility] RBC UA 0-2 None Seen, 0-2, 3-5 # /hpf 05/27/2021 3:50 PM CDT [facility] WBC UA 6-10(A) None Seen, 0-5 # /hpf 05/27/2021 3:50 PM CDT [facility] Bacteria UA Trace(A) None Seen 05/27/2021 3:50 PM CDT [facility] Squamous Epithelial Cells 0-2 None Seen, 0-2, 3-5 /hpf 05/27/2021 3:50 PM CDT [facility] Urine URINE SPECIMEN OBTAINED BY CLEAN CATCH PROCEDURE / Unknown Collection / Unknown 05/27/2021 3:15 PM CDT 05/27/2021 3:38 PM CDT Narrative [facility] - 05/27/2021 3:50 PM CDT Blanca Rodrigues INTERPRETATIVE DANCER-CLINICAL NURSING PROFESSOR LAB - URINALY SIS ORDERABLES [facility] [address] [place] [address] * (ABNORMAL) URINALYSIS REFLEX MICROSCOPIC REFLEX CULTURE (05/27/2021 3:15 PM CDT) Color UA Straw Straw, Yellow 05/27/2021 3:50 PM CDT [facility] Clarity UA Slt Cloudy(A) Clear 05/27/2021 3:50 PM CDT [facility] Glucose UA Negative Negative 05/27/2021 3:50 PM CDT [facility] Bilirubin UA Negative Negative 05/27/2021 3:50 PM CDT [facility] Ketone UA Negative Negative 05/27/2021 3:50 PM CDT [facility] Specific [place] UA 1.000(L) 1.005 - 1.030 05/27/2021 3:50 PM CDT [facility] Blood UA 1+(A) Negative 05/27/2021 3:50 PM CDT [facility] pH UA 6.0 5.0 - 8.0 pH 05/27/2021 3:50 PM CDT [facility] Protein UA Negative Negative 05/27/2021 3:50 PM CDT [facility] Urobilinogen UA Negative Negative mg/dL 05/27/2021 3:50 PM CDT [facility] Nitrite UA Negative Negative 05/27/2021 3:50 PM CDT [facility] Leukocyte UA 3+(A) Negative 05/27/2021 3:50 PM CDT [facility] Urine Microscopy Urine microscopy to follow 05/27/2021 3:50 PM CDT [facility] Reflex Status Culture to follow 05/27/2021 3:50 PM CDT [facility] Urine URINE SPECIMEN OBTAINED BY CLEAN CATCH PROCEDURE / Unknown Collection / Unknown 05/27/2021 3:15 PM CDT 05/27/2021 3:38 PM CDT Narrative [facility] - 05/27/2021 3:50 PM CDT Blanca Rodrigues INTERPRETATIVE DANCER-CLINICAL NURSING PROFESSOR LAB - URINALY SIS ORDERABLES Performing Organization Address City/[facility]/ZIP Co de Phone Number [facility] [address] [place] [phone] * TSH REFLEX FREE T4 (04/29/2021 2:19 PM CDT) TSH 1.049 0.350 - 4.940 uIU/mL 04/29/2021 4:13 PM CDT [facility] Blood BLOOD SPECIMEN / Unknown Venipuncture / Unknown 04/29/2021 2:19 PM CDT 04/29/2021 3:09 PM CDT Sho Chung MD LAB - CHEMISTRY OR DERABLES Performing Organization Address City/[facility]/ZIP Co de Phone Number [facility] [address] [place] [address] * TYPE + SCREEN PANEL (04/29/2021 2:19 PM CDT) ABO Rh B POS 04/29/2021 3:52 PM CDT [facility] Comment:No history; collect retype. Antibody Screen NEG 3:52 PM CDT [facility] Blood Bank BLOOD SPECIMEN / Unknown Venipuncture / Unknown 04/29/2021 2:19 PM CDT 04/29/2021 3:10 PM CDT Sho Chung MD LAB - BLOOD BANK O RDERABLES Performing Organization Address City/[facility]/ZIP Co de Phone Number [facility] [address] [place] [address] * CYSTIC FIBROSIS MUTATION PANEL (04/29/2021 2:19 PM CDT) Cystic Fibrosis Screen Comment: 05/07/2021 5:08 PM CDT [facility] ([facility]) Comment: RESULTS: Negative for 32 mutations analyzed INTERPRETATION: This individual is negative for the mutations analyzed. This negative result may need further interpretation depending on the clinical indication. This result reduces but does not eliminate the risk to be a CF carrier. COMMENTS: The detection rate varies with ethnicity and is listed below. The presence of an undetected mutation in the CF gene cannot be ruled out. In the absence of family history, the remaining risk that a person with a negative result could have at least one CF mutation is listed in the table. If there is a family history of CF, these risk figures do not apply. As detailed information regarding this individual's family history would permit a more accurate assessment of this individual's risk to be a carrier of cystic fibrosis, please contact [employer] at for a revised report. Mutation Detection Detection rates are based on mutation Rates among Ethnic frequencies in patients affected with Groups cystic fibrosis. Among individuals with an atypical or mild presentation (e.g. congenital absence of the vas deferens, pancreatitis) detection rates may vary from those provided here: Carrier risk reduction when no family history Detection Ethnicity Rate Ashkenazi 09/15 to 97% Confucianism 09/14 to 90% (non-) -Comoran to 69% to 73% to 55% This interpretation is based on the clinical and family relationship information provided and the current understanding of the molecular genetics of this condition. MUTATIONS ANALYZED: G85E V520F E6478G 2183AA to G R117H G542X S4819M 2184delA R334W S549N 394delTT 2789+5G to A R347H S549R 621+1G to T 3120+1G to A R347P G551D 711+1G to T 3659delC A455E R553X 1078delT 3849+10kbC to T RbcipV654 R560T 1717-1G to A 3876delA [id number] W7426Q 1898+1G to A 3905insT METHODS/LIMITATIONS: DNA is isolated from the sample and tested for the 32 CF mutations on the [place] Array Platform (Ed[employer]). Regions of the CFTR gene are amplified enzymatically and subjected to a solution-phase multiplex allele-specific primer extension with subsequent hybridization to a bead array and fluorescence detection. Polymorphisms F508C, I506V and I507V are included in this panel to rule out false positive [id number] homozygotes. Reflex testing of 5T is included in the panel for R117H interpretation. False positive or negative results may occur for reasons that include genetic variants, blood transfusions, bone marrow transplantation, erroneous representation of family relationships or contamination of a sample with maternal cells. REFERENCES: 1. Updates on Carrier Screening for Cystic Fibrosis. (2011) Am J Ob Gynecol 117(4):6218-6687 2. Sanju et al. (2004) Teri Med 6:387-91 3. Sandra et al. (2002) Teri Med 4:379-391 4. Preconception and carrier screening for cystic fibrosis: (2001)ACOG.ACMG publication Results Released By: Memo Frye, Ph.D. Civil Design Specialist Report Released By: Memo Frye, Ph.D. Civil Design Specialist Comment Comment 05/07/2021 5:08 PM CDT [facility] ([facility]) Comment: The assay provides information intended to be used for carrier screening in adults of reproductive age, as an aid in screening, and as a confirmatory test for another medically established diagnosis in newborns and children. The test is not indicated for use in diagnostic testing, pre-implantation screening, or for any stand-alone diagnostic purposes without confirmation by another medically established diagnostic product or procedure. Blood BLOOD SPECIMEN / Unknown Venipuncture / Unknown 04/29/2021 2:19 PM CDT 04/29/2021 3:10 PM CDT Narrative [facility] ([facility]) - 05/07/2021 5:08 PM CDT Performed at: [address] [place], [place] [address] [place], [place] [id number] [employer] Infrastructure Consultant: Patricia Carrasco [facility], Phone: [phone] Sho Chung MD LAB - HEMATOLOGY O RDERABLES [facility] ([facility]) [address] [place] [address] * SYPHILIS ANTIBODY CASCADING REFLEX (04/29/2021 2:18 PM CDT) Treponema pallidum Antibody Non Reactive Non Reactive 04/29/2021 5:15 PM CDT [facility] Comment: No Laboratory evidence of syphilis infection. Note: Circulating antibodies may be low or undetectable in early infection. If recent exposure is suspected, re-draw sample in 2-4 weeks and repeat testing. Blood BLOOD SPECIMEN / Unknown Venipuncture / Unknown 04/29/2021 2:18 PM CDT 04/29/2021 3:10 PM CDT Sho Chung MD LAB - SEROLOGY ORD ERABLES Performing Organization Address [facility] Co de Phone Number [facility] [address] [place] [phone] * HIV-1 HIV-2 ANTIBODY + HIV P24 AG PANEL (04/29/2021 2:18 PM CDT) Only the most recent of3 resultswithin the time period is included. [facility] HIV1/2 Ab + P24 Ag Non Reactive Non Reactive 04/29/2021 4:34 PM CDT [facility] Blood BLOOD SPECIMEN / Unknown Venipuncture / Unknown 04/29/2021 2:18 PM CDT 04/29/2021 3:10 PM CDT Narrative [facility] - 04/29/2021 4:34 PM CDT No Laboratory evidence of HIV infection. Sho Chung MD LAB - CHEMISTRY OR DERABLES Performing Organization Address [facility] de Phone Number [facility] [address] [place] [address] * RUBELLA ANTIBODY IGG (04/29/2021 2:18 PM CDT) [facility] Rubella Antibody 1.16 Immune >0.99 index 05/01/2021 8:14 AM CDT [facility] ([facility]) Comment: Non-immune <0.90 Equivocal 0.90 - 0.99 Immune >0.99 Blood BLOOD SPECIMEN / Unknown Venipuncture / Unknown 04/29/2021 2:18 PM CDT 04/29/2021 3:09 PM CDT Narrative [facility] ([facility]) - 05/01/2021 8:14 AM CDT Performed at: 01 - [facility] [address] [facility], [place], [place] [id number] [employer] Infrastructure Consultant: Nabeel Purcell PhD, Phone: [phone] Sho Chung MD LAB - SEROLOGY ORD ERABLES [facility] ([facility]) [address] [place] [address] * (ABNORMAL) CBC W AUTO DIFFERENTIAL (04/29/2021 2:18 PM CDT) Only the most recent of2 resultswithin the time period is included. WBC 9.7 4.5 - 11.0 x10E9/L 04/29/2021 3:24 PM CDT [facility] WBC Corrected 04/29/2021 3:24 PM CDT [facility] RBC 4.14 4.10 - 5.10 x10E12/L 04/29/2021 3:24 PM CDT [facility] Hemoglobin 12.4 12.0 - 16.0 gm/dL 04/29/2021 3:24 PM CDT [facility] Hematocrit 36.3 36.0 - 47.0 % 04/29/2021 3:24 PM CDT [facility] MCV 87.7 78.0 - 102.0 fl 04/29/2021 3:24 PM CDT [facility] MCH 30.0 25.0 - 35.0 pg 04/29/2021 3:24 PM CDT [facility] MCHC 34.2 31.0 - 37.0 gm/dL 04/29/2021 3:24 PM CDT [facility] Platelet Count 318 100 - 400 x10E9/L 04/29/2021 3:24 PM CDT [facility] RDW-CV 12.9 11.5 - 14.0 % 04/29/2021 3:24 PM CDT [facility] MPV 10.9(H) 6.0 - 9.5 fl 04/29/2021 3:24 PM CDT [facility] Neutrophils % 74.3 31.0 - 78.0 % 04/29/2021 3:24 PM CDT [facility] Lymphocytes % 17.4 13.0 - 54.0 % 04/29/2021 3:24 PM CDT [facility] Monocytes % 6.2 4.0 - 13.0 % 04/29/2021 3:24 PM CDT [facility] Eosinophils % 1.0 0.0 - 8.0 % 04/29/2021 3:24 PM CDT [facility] Basophils % 0.5 % 04/29/2021 3:24 PM CDT [facility] Immature Granulocytes 0.6 % 04/29/2021 3:24 PM CDT [facility] Neutrophil Absolute 7.19 1.4 - 8.58 x10E9/L 04/29/2021 3:24 PM CDT [facility] Lymphocytes Absolute 1.69 0.59 - 5.94 x10E9/L 04/29/2021 3:24 PM CDT [facility] Monocytes Absolute 0.60 0.18 - 1.43 x10E9/L 04/29/2021 3:24 PM CDT [facility] Eosinophils Absolute 0.10 0 - 0.88 x10E9/L 04/29/2021 3:24 PM CDT [facility] Basophils Absolute 0.05 0 - 0.22 x10E9/L 04/29/2021 3:24 PM CDT [facility] Immature Granulocytes Absolute 0.06 0 - 0.11 x10E9/L 04/29/2021 3:24 PM CDT [facility] nRBC Auto 0 /100 WBC 04/29/2021 3:24 PM CDT [facility] Blood BLOOD SPECIMEN / Unknown Venipuncture / Unknown 04/29/2021 2:18 PM CDT 04/29/2021 3:10 PM CDT Sho Chung MD LAB - HEMATOLOGY O RDERABLES [facility] [address] [place] [address] * (ABNORMAL) COMPREHENSIVE METABOLIC PANEL (04/29/2021 2:18 PM CDT) Only the most recent of2 resultswithin the time period is included. [facility] Glucose 75 70 - 105 mg/dL 04/29/2021 4:47 PM CDT [facility] Sodium 139 136 - 145 mmol/L 04/29/2021 4:47 PM CDT [facility] Potassium 4.3 3.5 - 5.1 mmol/L 04/29/2021 4:47 PM CDT [facility] Chloride 104 98 - 107 mmol/L 04/29/2021 4:47 PM CDT [facility] CO2 24 20 - 28 mmol/L 04/29/2021 4:47 PM CDT [facility] Calcium 9.4 8.4 - 10.4 mg/dL 04/29/2021 4:47 PM CDT [facility] Anion Gap 11 8 - 18 mmol/L 04/29/2021 4:47 PM CDT [facility] BUN 4(L) 7 - 18.7 mg/dL 04/29/2021 4:47 PM CDT [facility] Creatinine 0.56(L) 0.57 - 1.11 mg/dL 04/29/2021 4:47 PM CDT [facility] Alkaline Phosphatase 73 40 - 150 U/L 04/29/2021 4:47 PM CDT [facility] ALT 21 0 - 61 U/L 04/29/2021 4:47 PM CDT [facility] AST 16 5 - 34 U/L 04/29/2021 4:47 PM CDT [facility] Protein Total 6.9 6.4 - 8.3 gm/dL 04/29/2021 4:47 PM CDT [facility] Albumin 3.9 3.4 - 5.0 gm/dL 04/29/2021 4:47 PM CDT [facility] Bilirubin Total 0.4 0.2 - 1.2 mg/dL 04/29/2021 4:47 PM CDT [facility] eGFR by MDRD >60 >60 mL/min/1.7 3m2 04/29/2021 4:47 PM CDT [facility] eGFR by MDRD >60 >60 mL/min/1.7 3m2 04/29/2021 4:47 PM CDT [facility] Blood BLOOD SPECIMEN / Unknown Venipuncture / Unknown 04/29/2021 2:18 PM CDT 04/29/2021 3:10 PM CDT Sho Chung MD LAB - CHEMISTRY OR DERABLES [facility] [address] [place] [address] * HEPATITIS B SURFACE ANTIGEN W RFLX CONFIRMATION (04/29/2021 2:18 PM CDT) HBsAg Non Reactive Non Reactive 04/29/2021 5:15 PM CDT [facility] Blood BLOOD SPECIMEN / Unknown Venipuncture / Unknown 04/29/2021 2:18 PM CDT 04/29/2021 3:10 PM CDT Sho Chung MD LAB - CHEMISTRY OR DERABLES Performing Organization Address [facility] Co de Phone Number [facility] [address] [place] [address] * HEPATITIS C ANTIBODY (04/29/2021 2:18 PM CDT) HCV Antibody Screen Non Reactive Non Reactive 04/29/2021 4:34 PM CDT [facility] Blood BLOOD SPECIMEN / Unknown Venipuncture / Unknown 04/29/2021 2:18 PM CDT 04/29/2021 3:09 PM CDT Narrative [facility] - 04/29/2021 4:34 PM CDT Non Reactive - Antibodies to Hepatitis C virus (HCV) were not detected, result does not exclude early acute HCV infection. Sho Chung MD LAB - CHEMISTRY OR DERABLES Performing Organization Address [facility] Co de Phone Number [facility] [address] [place] [phone] * EEG (11/21/2018 5:46 PM CDT) Narrative [facility] - 11/21/2018 5:46 PM CDT Carlos Matos MD 11/21/2018 5:46 PM Name: Guillermina Souza CSN: [id number] Type: Routine Date of Test: 11/20/2018 Ordering Provider: Robinson Rivera MD PCP: Robinson Rivera MD Metallography Teacher: Carlos Matos MD Routine EEG Report DESCRIPTION Indication: The EEG is performed in 18 year old 4 month old female for evaluation of epileptiform activity. Background: During the awake state with eyes closed the background consists of a 12 Hz posterior dominant rhythm with an amplitude of approximately 60 microvolts which attenuates appropriately with eye opening. The recording is continuous. There is a well-developed anterior-posterior gradient. No significant asymmetries of background activity are noted. With drowsiness, there is waxing and waning of the dominant rhythm with eventual replacement by a mixture of beta, alpha and theta activity. As the patient enters stage II of sleep, symmetrical spindles and vertex sharp waves are present. Arousal is unremarkable. Epileptiform activity: No epileptiform activity is noted. Seizures: No seizures were captured during the recording. Activation Procedures: Three minutes of adequate hyperventilation did not result in diffuse slowing of the background activity or activation of epileptiform activity. Photic stimulation using a step-landaverde increase in photic frequency results in driving responses but no activation of epileptiform activity. EKG: A prolonged lead I EKG rhythm strip approximated a heart rate of 90 beats/minute. INTERPRETATION: This EEG recorded in the awake and asleep states is within normal limits for age. CLINICAL CORRELATION The diagnosis of a seizure remains a clinical one. A normal EEG does not exclude this diagnosis. However, there are no epileptiform features in this recording to suggest an underlying diagnosis of epilepsy. Therefore, clinical correlation is recommended. Carlos Matos MD Spa Manager/Esthetician Child Neurology and Epilepsy [facility] Delores Rivera MD NEUROLOGY [facility] Organization Address City/State/ZIP Co de Phone Number [facility] * XR PELVIS W BILAT HIP 2VW (09/28/2018 3:07 PM RATING SPECIALIST) Anatomical Region Laterality Modality Pelvis, Lower Extremity Radiogra [facility] Impressions 09/28/2018 5:20 PM RATING SPECIALIST Bilateral femoral neck cam deformities. Reading Radiologist: Juan Villalba MD on 09/28/2018 at 5:20 PM Narrative 09/28/2018 5:20 PM RATING SPECIALIST INDICATION: Bilateral hip pain, chronic EXAMINATION: 3 views of the left hip 3 views of the right hip COMPARISON: AP pelvis earlier on same date FINDINGS: Left hip: There is periosteal new bone along the anterolateral femoral neck. There is no acute fracture or subluxation. Joint space is congruent and symmetric. Femoral head has normal contour and mineralization. Right hip: There is periosteal new bone along the anterolateral femoral neck. There is no acute fracture or subluxation. Joint space is congruent and symmetric. Femoral head has normal contour and mineralization. Saroj Nielsen MD DIAGNOSTIC IMAGING O RDERABLES * XR AP PELVIS 1 VIEW (09/28/2018 2:23 PM RATING SPECIALIST) Anatomical Region Laterality Modality Pelvis Radiographic Judy ging 09/28/2018 2:54 PM RATING SPECIALIST Addenda Addendum by Juan Villalba MD on 09/28/2018 5:25 PM RATING SPECIALIST Bilateral acetabular crossover sign is noted with the anterior acetabulum lateral to the posterior acetabulum superiorly. However, the pelvic rotation is not optimal with the sacrococcygeal joint greater than 6 cm cephalad to the superior margin of the pubic symphysis, which may overestimate acetabular crossover. Addending Radiologist: Juan Villalba MD on 09/28/2018 at 5:22 PM Impressions 09/28/2018 2:57 PM RATING SPECIALIST Normal exam. Dictated by Aileen Mendosa MD, (cco & president). Juan Colmenares, have personally reviewed the images and I agree with this report. Reading Radiologist: Juan Villalba MD on 09/28/2018 at 2:57 PM Narrative 09/28/2018 2:57 PM RATING SPECIALIST EXAM: Pelvis 1 view HISTORY: 18-year-old with bilateral hip pain COMPARISON: No prior FINDINGS: The bones of the pelvis are intact and well aligned. Both hips are seated. The bone mineralization is normal. No focal soft tissue swelling is seen. The visible bowel gas pattern is nonobstructive. Procedure Note Juan Villalba MD - 09/28/2018 EXAM: Pelvis 1 view HISTORY: 18-year-old with bilateral hip pain COMPARISON: No prior FINDINGS: The bones of the pelvis are intact and well aligned. Both hips are seated. The bone mineralization is normal. No focal soft tissue swelling is seen. The visible bowel gas pattern is nonobstructive. IMPRESSION Normal exam. Dictated by Aileen Mendosa MD, (cco & president). Juan Colmenares, have personally reviewed the images and I agree with this report. Reading Radiologist: Juan Villalba MD on 09/28/2018 at 2:57 PM Tory Robbins PA-C DIAGNOSTIC IMAGING O RDERABLES * BACTERIAL VAGINOSIS + YEAST SMEAR (06/14/2018 1:52 PM CDT) Clue Cells No Clue Cells Seen No Clue Cells Seen 06/14/2018 8:29 PM CDT [facility] Yeast No Yeast Seen No Yeast Seen 06/14/20 18 8:29 PM CDT [facility] Grzegorz Score Grzegorz Score 0-3: Consistent with normal vaginal della Grzegorz Score 0-3: Consistent with normal vaginal della 06/14/2018 8:29 PM CDT [facility] Microbiology ENTIRE VAGINA / Unknown Collection / Unknown 06/14/2018 1:52 PM CDT 06/14/2018 2:12 PM CDT Greyson Figueroa MD LAB - MICROBIOL OGY ORDERABLES [facility] [address] [place] [address], [facility] [phone] * XR CHEST 2VW (06/13/2018 9:27 AM CDT) Anatomical Region Laterality Modality Chest Radiographic Judy ging 06/13/2018 9:56 AM CDT Impressions 06/13/2018 9:56 AM CDT Normal exam.. Reading Radiologist: Juan Villalba MD on 06/13/2018 at 9:56 AM Narrative 06/13/2018 9:56 AM CDT INDICATION: Chest pain, unspecified EXAMINATION: PA and lateral chest radiographs 06/13/2018 COMPARISON: None FINDINGS: Lungs are symmetrically aerated and clear. Heart size, mediastinal contours and pulmonary vascularity are normal. Aortic arch, cardiac apex and stomach bubble are left of midline. Osseous structures are normal for age. Procedure Note Juan Villalba MD - 06/13/2018 INDICATION: Chest pain, unspecified EXAMINATION: PA and lateral chest radiographs 06/13/2018 COMPARISON: None FINDINGS: Lungs are symmetrically aerated and clear. Heart size, mediastinal contours and pulmonary vascularity are normal. Aortic arch, cardiac apex and stomach bubble are left of midline. Osseous structures are normal for age. IMPRESSION Normal exam.. Reading Radiologist: Juan Villalba MD on 06/13/2018 at 9:56 AM Greyson Figueroa MD DIAGNOSTIC IMAG ING ORDERABLES * (ABNORMAL) URINALYSIS W/MICROSCOPIC REFLEX TO CULTURE (06/08/2018 8:28 AM CDT) Only the most recent of2 resultswithin the time period is included. Color UA Yellow Straw, Yellow 06/08/2018 8:53 AM [facility] Clarity UA Clear Clear 06/08/2018 8:53 AM [facility] Glucose UA Negative Negative 06/08/2018 8:53 AM [facility] Bilirubin UA Negative Negative 06/08/2018 8:53 AM [facility] Ketone UA Negative Negative 06/08/2018 8:53 AM [facility] Specific [place] UA <=1.005 1.005 - 1.030 06/08/2018 8:53 AM [facility] Blood UA Negative Negative 06/08/2018 8:53 AM [facility] pH UA 6.5 5.0 - 8.0 pH 06/08/2018 8:53 AM [facility] Protein UA Negative Negative 06/08/2018 8:53 AM [facility] Urobilinogen UA Negative Negative mg/dL 06/08/2018 8:53 AM [facility] Nitrite UA Negative Negative 06/08/2018 8:53 AM [facility] Leukocyte UA 2+(A) Negative 06/08/2018 8:53 AM [facility] RBC UA None Seen None Seen, 0-2, 3-5 # /hpf 06/08/2018 8:53 AM [facility] WBC UA 0-5 None Seen, 0-5 # /hpf 06/08/2018 8:53 AM [facility] Bacteria UA Trace(A) None Seen 06/08/2018 8:53 AM [facility] Squamous Epithelial Cells 0-2 None Seen, 0-2, 3-5 /hpf 06/08/2018 8:53 AM [facility] Reflex Status Culture to follow 06/08/2018 8:53 AM CDT [facility] Urine URINE SPECIMEN OBTAINED BY CLEAN CATCH PROCEDURE / Unknown Collection / Unknown 06/08/2018 8:28 AM CDT 06/08/2018 8:39 AM CDT Marely Scott MD LAB - URINALYSIS OR DERABLES Performing Organization Address City/[facility] Co de Phone Number [facility] [address] [facility] [place] [address] * CHLAMYDIA + GC AMPLIFIED PROBE (06/08/2018 8:28 AM CDT) Only the most recent of3 resultswithin the time period is included. [facility] Chlamydia Amplified Probe Negative Negative 06/09/2018 1:30 PM CDT [facility] GC Amplified Probe Negative Negative 06/09/2018 1:30 PM CDT [facility] Microbiology URINE / Unknown Collection / Unknown 06/08/2018 8:28 AM CDT 06/08/2018 8:39 AM CDT Narrative [facility] - 06/09/2018 1:30 PM CDT Results based on detection/no detection of ribosomal RNA by amplified method. Marely Scott MD LAB - MICROBIOLOGY ORDERABLES Performing Organization Address [facility] de Phone Number [facility] [address] [place] [address], [facility] [phone] * DRUG SCREEN TOX COMPREHESIVE URINE PANEL (06/08/2018 8:28 AM CDT) Only the most recent of2 resultswithin the time period is included. [facility] Drug Screen Urine Comprehensive Panel See Scanned Report 06/08/2018 2:48 PM CDT [facility] Urine URINE / Unknown Collection / Unknown 06/08/2018 8:28 AM CDT 06/08/2018 8:40 AM CDT Marely Scott MD LAB - URINE NURSES' REGISTRY DIRECTOR RY ORDERABLES Performing Organization Address City/[facility] Co de Phone Number [facility] [address] [place] [phone] * HCG URINE QUAL POCT NOTIFICATION (06/08/2018 7:42 AM CDT) Pathologist [facility] Comment Notification Label Only - See Separate Report 06/08/2018 9:00 AM CDT [facility] Urine URINE / Unknown 06/08/2018 7 :42 AM CDT 06/08/2018 7:42 AM CDT Marely Scott MD LAB - URINALYSIS OR DERABLES Performing Organization Address City/[facility]/ZIP Co de Phone Number [facility] [address] [place] [phone] * HCG URINE QUALITATIVE (06/08/2018 7:42 AM CDT) Pathologist [facility] hCG Qualitative Urine Negative Negative 06/08/2018 9:11 AM CDT [facility] Urine URINE / Unknown 06/08/2018 7 :42 AM CDT 06/08/2018 7:42 AM CDT Delaney Mckeon DO LAB - URINALYSIS ORD ERABLES Performing Organization Address [facility] Co de Phone Number [facility] [address] [place] [phone] * RPR (06/08/2018 6:12 AM CDT) Only the most recent of2 resultswithin the time period is included. Pathologist [facility] RPR Non Reactive Non Reactive 06/09/2018 10:37 AM CDT [facility] Blood BLOOD SPECIMEN / Unknown Lab Venipuncture / Unknown 06/08/2018 6:12 AM CDT 06/08/2018 6:12 AM CDT Marely Scott MD LAB - CHEMISTRY ORD ERABLES Performing Organization Address City/[facility]/ZIP Co de Phone Number [facility] [address] [place] [address] * EKG 15-LEAD (06/08/2018 4:56 AM CDT) Only the most recent of4 resultswithin the time period is included. Ventricular Rate 63 BPM CG MUSE Atrial Rate 63 BPM CG MUSE P-R Interval 130 ms CG MUSE QRS Duration ms 94 ms CG MUSE Q-T Interval ms 412 ms CG MUSE QTC Calculation (Bezet) 421 ms CG MUSE Calculated P [place] 49 degrees CG MUSE Calculated R [place] 71 degrees CG MUSE Calculated T [place] 59 degrees CG MUSE Interpretation EKG * Pediatric ECG Analysis * Normal sinus rhythm Normal ECG Confirmed by VALERIE BARAHONA ([id number]) on 06/09/2018 4:01:32 PM CG MUSE 06/08/2018 4:56 AM CDT 06/09/2018 4:01 PM CDT Wagner Quevedo DO ECG ORDERABLES Performing Organization Address City/State/[facility] Co de Phone Number CG MUSE * XR SCOLIOSIS ERECT (03/24/2014 9:57 AM CDT) Anatomical Region Laterality Modality Spine Radiographic Judy ging 03/24/2014 10:2 4 AM CDT Impressions 03/24/2014 10:26 AM CDT Thoracolumbar levoscoliosis with minimal pelvic tilt. Narrative 03/24/2014 10:26 AM CDT Scoliosis series performed March 24, 2014. History: Scoliosis. Standing frontal and lateral views of the spine were obtained. No prior films are available for comparison. There is a thoracolumbar levoscoliosis with a DE GUZMAN angle of 15 degrees as measured from T5-L4. There is accentuation of the lumbar lordosis on the lateral film. The spinous process of L5 appears bifid. No segmentation anomalies are seen. There is no obvious paraspinal mass. The right iliac crest is minimally higher than the left. Procedure Note Codie Alvarado MD - 03/24/2014 Scoliosis series performed March 24, 2014. History: Scoliosis. Standing frontal and lateral views of the spine were obtained. No prior films are available for comparison. There is a thoracolumbar levoscoliosis with a DE GUZMAN angle of 15 degrees as measured from T5-L4. There is accentuation of the lumbar lordosis on the lateral film. The spinous process of L5 appears bifid. No segmentation anomalies are seen. There is no obvious paraspinal mass. The right iliac crest is minimally higher than the left. IMPRESSION Thoracolumbar levoscoliosis with minimal pelvic tilt. Enmanuel Le MD [facility] Care Teams Junk Removal Specialist Relationship Specialty Start Date End Date Robinson Rivera MD PCP - General Pediatrics 04/08/19 Delores Rivera MD 06/10/18 Nirali Cordero LCSW Outpatient Slubber Runner 05/27/21
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
--- OUTSIDE RECORDS SUMMARY | 2024-10-13 10:41 | XMS_ITS | Encounter Summary ---
Author Organization [facility] Address [address] [place] [address] Phone Care Team Providers Care Assembler Arranger Name Role Phone Robinson Rivera MD Primary Care Provider + Sid Bingham MD Unavailable Berenice Weems APRN, LANDING SUPPORT SPECIALIST Primary Care Pro vider Berenice Weems APRN, LANDING SUPPORT SPECIALIST Unavailable Berenice Weems APRN, LANDING SUPPORT SPECIALIST Primary Care Pro vider Reason for Visit * Reason Comments Medication Refill Encounter Details Date Type Department Care Team (Late st Contact Info) Description 06/16/2023 Refill [facility] - Primary Care - [place] [address] [place] [address] Huma Barragan APRN, GRETA [address] [place] [address] Medication Refill Social History Tobacco Use Types Packs/Day Years Used Date Smoking Tobacco: Former Cigarettes 1 5 Smokeless Tobacco: Never Alcohol Use Standard Drinks/Week Comments No 0 (1 standard drink = 0.6 oz pur e alcohol) PHQ-2 Answer Date Recorded Total Score - Questions 1-9 0 08/0 10/2020 Education Answer Date Recorded What is the highest level of school you have completed or the highest degree you have received? 10th grade 02/10/2023 Sexually Active Control Partners Comments Yes Implant Comments No Sex and Gender Information Value Date Recorded Sex Assigned at Female 03/29/2018 3:15 PM CDT Legal Sex Female 8:55 PM CDT Gender Identity Female 03/29/2018 3:15 PM CDT Sexual Orientation Straight 03/29/2018 3: 15 PM CDT COVID-19 Exposure Response Date Recorded In the last 10 days, have yo u been in contact with someone who was confirmed or suspected to have Coronavirus/COVID-19? No / Unsure 06/12/2023 9:33 AM CDT documented as of this encounter Plan of Treatment Not on file documented as of this encounter Goals Goal Patient Goal Type Associated Problems Recent Progress Patient-Stated? Author [facility] No Ugo Le PSYD Note: Goal/Objective: Decrease angry outbursts. Anticipated Time Frame for Goal Completion: 8 weeks Goal Reviewed with: patient Readiness to change: Ready to change Department associated with goal: [facility] Steps to achieve goal: [...] to no longer be on long-term medication. documented as of this encounter Visit Diagnoses Not on filedocumented in this encounter Additional Health Concerns Assessment Noted Time PHQ-9 Depression Total Score: 0 03/23/20 21 2:00 PM CDT documented as of this encounter Care Teams Assembler Arranger Relationship Specialty Start Date End Date Robinson Rivera MD [address] [place] [address] PCP - General Pediatrics 03/23/21 07/16/23 Berenice Weems APRN, LANDING SUPPORT SPECIALIST [address] [place] [address] PCP - General Primary Care 07/21/23 07/24/24 Berenice Weems APRN, LANDING SUPPORT SPECIALIST [address] [place] [address] PCP - General Primary Care 08/19/24 Sid Bingham MD [address] [address] Consulting Physician Colon and Rectal Surgery 06/29/23 Berenice Weems APRN, LANDING SUPPORT SPECIALIST [address] [place] [address] Nurse Practitioner Advanced Practice Nurse 05/01/23 documented as of this encounter
[2024-10-13 10:44] VITALS: BP 129/81; PULSE 120; RESP 20; TEMP 38; O2SAT 100
[2024-10-13 11:04] LABS: EDCOVIDSCREEN Negative (Negative); EDINFLUASCREEN Positive (Negative); EDINFLUBSCREEN Negative (Negative)
--- NOTE | 2024-10-13 11:24 | ED_ITS ---
HPI - General Adult General Chief complaint: Upper Respiratory Infection Stated complaint: weak legs,ribs and chest hurts,headache,temp Source: patient Mode of arrival: ambulatory Limitations: no limitations History of Present Illness HPI narrative: Patient presents for evaluation of sick symptoms for last 2 days. Symptoms include fever, chills, generalized body aches, sore throat, cough, shortness of breath, nausea and diarrhea. No recent sick contacts to her knowledge. She has tried tylenol and ibuprofen for her symptoms, which have not provided much relief. She does use an electric cigarette. Related Data Allergies Allergy/AdvReac Type Severity Reaction Status Date / Time shellfish derived Allergy Unknown Verified 04/09/21 14:41 Review of Systems Review of Systems: CONSTITUTIONAL: Reports fever and chills EYES: Denies visual changes, redness, or discharge. ENT: Reports sore throat. Denies rhinorrhea, congestion, or otalgia. CARDIOVASCULAR: Denies chest pain, palpitations, or edema. RESPIRATORY: Reports cough. Denies dyspnea. GASTROINTESTINAL: Reports nausea and diarrhea. Denies abdominal pain GENITOURINARY: Denies dysuria or hematuria. SKIN: Denies rash or itching. MUSCULOSKELETAL: Reports generalized body aches NEUROLOGIC: Denies headache, numbness, dizziness, or weakness. PSYCHIATRIC: Denies anxiety or depression. [facility] Past Medical History Medical History Asthma Anxiety and depression Surgical History Surgical History History of tonsillectomy Family History Family History Mother Family history non-contributory Social History Social History Smoking status: Current every day smoker Tobacco type: e-cigarettes/vaping Gender identity (if verbalized by the patient): Female Spiritual care concerns: No Exam Narrative: GENERAL: Appears acutely ill but nontoxic HEAD: Normocephalic, atraumatic. EYES: PERRLA and EOMI. ENT: Nares clear, no rhinorrhea or epistaxis. Mucous membranes moist. Oropharynx without tonsillar hypertrophy exudate or other lesions. Bilateral TMs pearly umana nonbulging NECK: Supple. No adenopathy or masses. No carotid bruits or JVD CHEST: Cough present on exam. Clear to auscultation. No respiratory distress. No wheezes rales or rhonchi HEART: Regular rate and rhythm. No murmur heard. Normal peripheral pulses. ABDOMEN: Soft, nontender, nondistended, normal active bowel sounds. EXTREMITIES: Normal range of motion. No edema. SKIN: Warm, dry, no rash. NEURO: No focal deficits. Alert and oriented x3. PSYCH: Normal mood and affect. Course Course Emergency Course: This is a 24-year-old female who presented for evaluation of sick symptoms. Influenza A positive. Will treat Tamiflu and Zofran. Increase hydration. Iwlh-edo-owwwoxi agents for symptom management. Primary provider. Go to the worsening symptoms. Patient agreement with plan care. Level of Care: Express Care Visit Vital Signs Vital signs: Vital Signs Temperature 38.0 C H 10/13/24 10:44 Pulse Rate 120 H 10/13/24 10:44 Respiratory Rate 10/13/24 10:44 Blood Pressure 129/81 10/13/24 10:44 Pulse Oximetry 100 10/13/24 10:44 Oxygen Delivery Room Air 10/13/24 10:44 Temperature 38.0 C H 10/13/24 10:44 Pulse Rate 120 H 10/13/24 10:44 Respiratory Rate 10/13/24 10:44 Blood Pressure 129/81 10/13/24 10:44 Pulse Oximetry 100 10/13/24 10:44 Oxygen Delivery Room Air 10/13/24 10:44 Medical Decision Making Vital Signs Vital Signs: Vital Signs Temperature 38.0 C H 10/13/24 10:44 Pulse Rate 120 H 10/13/24 10:44 Respiratory Rate 10/13/24 10:44 Blood Pressure 129/81 10/13/24 10:44 Pulse Oximetry 100 10/13/24 10:44 Oxygen Delivery Room Air 10/13/24 10:44 Temperature 38.0 C H 10/13/24 10:44 Pulse Rate 120 H 10/13/24 10:44 Respiratory Rate 10/13/24 10:44 Blood Pressure 129/81 10/13/24 10:44 Pulse Oximetry 100 10/13/24 10:44 Oxygen Delivery Room Air 10/13/24 10:44 Lab Data Labs: Lab Results 10/13/24 Range/Units 10:48 POC Influenza A Ag Positive (Negative) POC Influenza B Ag Negative (Negative) POC SARS CoV-2 Ag Negative (Negative) Discharge Plan Discharge Clinical Impression: Influenza A Patient Disposition: Home, Self-Care Condition: Stable Instructions: Antibiotic Form, Influenza (ED) Patient Language: Vincentian Prescriptions: New oseltamivir [Tamiflu] 75 mg capsule 75 mg PO Q12H 5 Days Qty: 10 0RF ondansetron 4 mg tablet,disintegrating 4 mg PO Q6H PRN (Reason: nausea and vomiting) Qty: 15 0RF Follow-up/Referrals: Mariano Gonzalez MD [Physician] - Stand Alone Forms: Work/School Release IP Time of Disposition: 11:16
== END 2024-10-13 11:24 | disposition home or self-care (01) ==
PROVIDERS: Emergency Provider Nurse Practitioner
DX: J10.1 Influenza due to other identified influenza virus with other respiratory manifestations (principal); Z20.822 Contact with and (suspected) exposure to COVID-19; F17.290 Nicotine dependence, other tobacco product, uncomplicated; J45.909 Unspecified asthma, uncomplicated
CPT/HCPCS: 87426; 87804; 99213; G0463

== ENCOUNTER 2024-10-15 14:01 | Emergency (ER) | payer OTHER, SELFPAY ==
--- NOTE | ~2024-10-15 | XR_ITS ---
EXAMINATION: XR chest 2V DATE: 10/15/2024 14:20 INDICATION: Hemoptysis. TECHNIQUE: Frontal and lateral views of the chest were obtained. COMPARISON: None. FINDINGS: There is no pneumonia, pleural effusion, or pneumothorax. The heart size is normal. IMPRESSION: 1. No acute cardiopulmonary disease. Reviewed, dictated and finalized at location A. E HAND
[2024-10-15 14:05] VITALS: BP 111/69; PULSE 108; RESP 20; TEMP 37.1; O2SAT 96
--- NOTE | 2024-10-15 14:16 | ED.GENADULT ---
HPI - General Adult General Chief complaint: Nausea/Vomiting/Diarrhea Stated complaint: Vomiting/Coughing Blood Source: patient Mode of arrival: ambulatory Limitations: no limitations History of Present Illness HPI narrative: Pt presents for evaluation of respiratory symptoms. I saw her here on 10/13/24 and diagnosed her with influenza A. She was given scripts for tamiflu and zofran, which she has been taking as directed. Generally speaking, she feels as though her symptoms are improving. She came in today because she has shortness of breath and pleuritic chest pain. She has coughing episodes in which she notes blood tinged sputum and has had a few episodes of vomiting during severe coughing episodes. She has also noted that her emesis is blood tinged. She has not been using her electronic cigarette over the past two days. Related Data Allergies Allergy/AdvReac Type Severity Reaction Status Date / Time shellfish derived Allergy Unknown Verified 10/15/24 14:11 Review of Systems Review of Systems: CONSTITUTIONAL: Denies fever, chills, or sweats. EYES: Denies visual changes, redness, or discharge. ENT: Denies rhinorrhea, congestion, sore throat, or otalgia. CARDIOVASCULAR: Denies chest pain, palpitations, or edema. RESPIRATORY: Reports shortness of breath, cough with blood tinged sputum. GASTROINTESTINAL: Reports vomiting during coughing episodes in which she has blood tinged emesis. Denies abdominal pain or diarrhea. GENITOURINARY: Denies dysuria or hematuria. SKIN: Denies rash or itching. MUSCULOSKELETAL: Denies back pain, joint pain, or myalgia. NEUROLOGIC: Denies headache, numbness, dizziness, or weakness. PSYCHIATRIC: Denies anxiety or depression. [facility] Past Medical History Medical History Asthma Anxiety and depression Surgical History Surgical History History of tonsillectomy Family History Family History Mother Family history non-contributory Social History Social History Smoking status: Current every day smoker Tobacco type: e-cigarettes/vaping Gender identity (if verbalized by the patient): Female Spiritual care concerns: No Exam Narrative: GENERAL: Well-appearing, well-nourished, and in no acute distress. HEAD: Normocephalic, atraumatic. EYES: PERRLA and EOMI. ENT: Nares clear, no rhinorrhea or epistaxis. Mucous membranes moist. Oropharynx without tonsillar hypertrophy exudate or other lesions. Bilateral TMs pearly umana nonbulging NECK: Supple. No adenopathy or masses. No carotid bruits or JVD CHEST: Clear to auscultation. No respiratory distress. No wheezes rales or rhonchi HEART: Regular rate and rhythm. No murmur heard. Normal peripheral pulses. ABDOMEN: Soft, nontender, nondistended, normal active bowel sounds. EXTREMITIES: Normal range of motion. No edema. SKIN: Warm, dry, no rash. NEURO: No focal deficits. Alert and oriented x3. PSYCH: Normal mood and affect. Course Course Emergency Course: This is a 24-year-old female who presented for evaluation of blood tinged sputum and emesis in the setting of recent influenza diagnosis. This is likely secondary to coughing episodes. Chest x-ray was normal. There is no gross hematemesis or hemoptysis.. I recommended she sleep with a humidifier. She will follow up with her primary and was advised to go to the hospital for gross hemoptysis/hematemesis. Her heart rate normalized on my exam. Pt in agreement with plan of care. Level of Care: Express Care Visit Vital Signs Vital signs: Vital Signs Temperature 37.1 C 10/15/24 14:05 Pulse Rate 108 H 10/15/24 14:05 Respiratory Rate 20 10/15/24 14:05 Blood Pressure 111/69 10/15/24 14:05 Pulse Oximetry 96 10/15/24 14:05 Oxygen Delivery Room Air 10/15/24 14:05 Temperature 37.1 C 10/15/24 14:05 Pulse Rate 108 H 10/15/24 14:05 Respiratory Rate 20 10/15/24 14:05 Blood Pressure 111/69 10/15/24 14:05 Pulse Oximetry 96 10/15/24 14:05 Oxygen Delivery Room Air 10/15/24 14:05 Medical Decision Making Vital Signs Vital Signs: Vital Signs Temperature 37.1 C 10/15/24 14:05 Pulse Rate 108 H 10/15/24 14:05 Respiratory Rate 20 10/15/24 14:05 Blood Pressure 111/69 10/15/24 14:05 Pulse Oximetry 96 10/15/24 14:05 Oxygen Delivery Room Air 10/15/24 14:05 Temperature 37.1 C 10/15/24 14:05 Pulse Rate 108 H 10/15/24 14:05 Respiratory Rate 20 10/15/24 14:05 Blood Pressure 111/69 10/15/24 14:05 Pulse Oximetry 96 10/15/24 14:05 Oxygen Delivery Room Air 10/15/24 14:05 Imaging Data Radiologist's impression: EXAMINATION: XR chest 2V DATE: 10/15/2024 14:20 INDICATION: Hemoptysis. TECHNIQUE: Frontal and lateral views of the chest were obtained. COMPARISON: None. FINDINGS: There is no pneumonia, pleural effusion, or pneumothorax. The heart size is normal. IMPRESSION: 1. No acute cardiopulmonary disease. Discharge Plan Discharge Clinical Impression: Influenza, Hemoptysis Patient Disposition: Home, Self-Care Condition: Stable Instructions: Antibiotic Form, Influenza (ED), Coughing Up Blood (Hemoptysis) (ED) Additional Instructions: SLEEPING WITH A HUMIDIFIER SHOULD HELP Patient Language: Mongolian Prescriptions: No Action oseltamivir [Tamiflu] 75 mg capsule 75 mg PO Q12H 5 Days Qty: 10 0RF ondansetron 4 mg tablet,disintegrating 4 mg PO Q6H PRN (Reason: nausea and vomiting) Qty: 15 0RF Follow-up/Referrals: Berenice Acosta DO [Physician] - Time of Disposition: 14:42
--- OUTSIDE RECORDS SUMMARY | 2024-10-15 16:10 | XMS_ITS | Encounter Summary ---
Author Organization [facility] Address [address] [place] [address] Phone Care Team Providers Care Mine Superintendent Name Role Phone Robinson Rivera MD Primary Care Provider + Sid Bingham MD Unavailable Berenice Weems APRN, HEALTHCARE PROJECT MANAGER Primary Care Pro vider Berenice Weems APRN, HEALTHCARE PROJECT MANAGER Unavailable Berenice Weems APRN, HEALTHCARE PROJECT MANAGER Primary Care Pro vider Reason for Visit * Reason Comments Medication Refill Encounter Details Date Type Department Care Team (Late st Contact Info) Description 06/16/2023 Refill [facility] - Primary Care - [place] [address] [place] [address] Huma Barragan APRN, GRETA [address] [place] [address] Medication Refill Social History Tobacco [...] as of this encounter Plan of Treatment Upcoming Encounters Date Type Department Care Team (Late st Contact Info) Description 10/31/2024 11:00 AM CDT Office Visit [facility] - Gastroenterology - [place] [address] [place] [address] Berenice Weems APRN, HEALTHCARE PROJECT MANAGER [address] [place] [address] documented as of this encounter Goals Goal Patient Goal Type Associated Problems Recent Progress Patient-Stated? Author [facility] Ugo Al PSYD Note: Goal/Objective: Decrease angry outbursts. Anticipated Time Frame for Goal Completion: 8 weeks Goal Reviewed with: patient Readiness to change: Ready to change Department associated with goal: [facility] Steps to [...] documented as of this encounter Care Teams Mine Superintendent Relationship Specialty Start Date End Date Robinson Rivera MD [address] [place] [address] PCP - General Pediatrics 03/23/21 07/16/23 Berenice Weems APRN, HEALTHCARE PROJECT MANAGER [address] [place] [address] PCP - General Primary Care 07/21/23 07/24/24 Berenice Weems APRN, HEALTHCARE PROJECT MANAGER [address] [place] [address] PCP - General Primary Care 08/19/24 Sid Bingham MD [address] [address] Consulting Physician Colon and Rectal Surgery 06/29/23 Berenice Weems APRN, HEALTHCARE PROJECT MANAGER [address] [place] [address] Nurse Practitioner Advanced Practice Nurse 05/01/23 documented as of this encounter
--- OUTSIDE RECORDS SUMMARY | 2024-10-15 16:10 | XMS_ITS | Clinical Summary ---
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 topic Goals Goal Patient Goal Type Associated Problems Recent Progress Patient-Stated? Author [facility] PSYD Note: Goal/Objective: Decrease angry outbursts. Anticipated Time Frame for Goal Completion: 8 weeks Goal Reviewed with: patient Readiness to change: Ready to change Department associated with goal: [facility] Steps to achieve [...] Blood specimen (specimen) us Roxann Fulton APRN, CNP CHEMISTRY ORDERABLES Fi nal Result from Last 3 Months or Most Recently Relevant to Health Maintenance Insurance MEDICAID [place] Care Teams Hand Bookbinder Relationship Specialty Start Date End Date Berenice Weems APRN, ERGONOMIST [address] [place] [address] PCP - General Primary Care 08/19/24 Sid Bingham MD #[address] [address] Consulting Physician Colon and Rectal Surgery 06/29/23 Berenice Weems APRN, ERGONOMIST [address] [place] [address] Nurse Practitioner Advanced Practice Nurse 05/01/23
--- OUTSIDE RECORDS SUMMARY | 2024-10-15 16:11 | XMS_ITS | Encounter Summary ---
Author Organization [facility] Healthcare Address [address] [place] [address] Care Team Providers Care Loan Operations Specialist Name Role Phone Robinson Rivera MD Primary Care Provider + Robinson Rivera MD Unavailable [phone] Robinson Rivera MD Unavailable [phone] Raegan Parra Unavailable Unavailable Jennifer Alford DO Unavailable [phone] Encounter Details Date Type Department Care Team (Late st Contact Info) Description 05/17/2024 Documentation [facility] Warm Hand Off Program [address] [place], [place] [phone] Blanca Farr Social History Tobacco Use Types Packs/Day Years Used Date Smoking Tobacco: Former Cigarettes 0.1 12.2 2 012 - 10/2023 Vaping 2020 - 10/2023 Passive Smoke Exposure: Never Smokeless Tobacco: Never [facility] Utilities Answer Date Recorded In the [...] How often do you attend chur or jainism services? Never 05/02/2024 Do you belong to any clubs o r organizations such as judaism groups, unions, fraternal or athletic groups, or [...] Date Recorded PHQ-2 Total Score 0 05/02/2024 [facility] of Occupat ional Health - Occupational Stress [...] a nursing home (including now)? No 11/23/2023 Washburn Depression Scale Answer Date Recorded Washburn Depression Scale Total 1 05/02/2024 The thought [...] any time in the past 12 m [facility], were you homeless or living in a [...] on file Legal Sex Female 10:47 AM PROCUREMENT REPRESENTATIVE Gender Identity Not on file Sexual Orientation Not on file Occupation Industry Job Start Date Job End Date None Not on file Not on file Not on file documented as of this encounter Plan of Treatment Not on file documented as of this encounter Visit Diagnoses Not on filedocumented in this encounter Care Teams Loan Operations Specialist Relationship Specialty Start Date End Date Robinson Rivera MD PCP - General 04/06/22 Robinson Rivera MD Pediatrics 04/06/22 Robinson Rivera MD 08/29/18 Raegan Parra 02/28/18 Jennifer Alford DO [address] [place] [address] Consulting Physician Obstetrics and Gynecology 05/04/24 documented as of this encounter
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
--- OUTSIDE RECORDS SUMMARY | 2024-10-15 16:11 | XMS_ITS | Encounter Summary ---
Author Organization [facility] Address [address] [place] [address] Phone Care Team Providers Care Senior Communications Engineer Name Role Phone Sid Bingham MD Unavailable Berenice Weems APRN, [employer] Unavailable Berenice Weems APRN, [employer] Primary Care Pro vider Reason for Visit * Reason Onset Date Comments Rectal Bleeding 10/14/2024 Encounter Details Date Type Department Care Team (Late st Contact Info) Description 10/14/2024 Nurse Triage [facility] - Gastroenterology - [place] [address] [place] [address] Berenice Weems APRN, [employer]ELTY MAKER [address] [place] [address] Rectal Bleeding Social History Tobacco Use Types Packs/Day Years Used Date Smoking Tobacco: Former Cigarettes 1 12 2 011 - 08/07/2022 Smokeless Tobacco: Never Alcohol Use Standard Drinks/Week [...] Orientation Straight 03/29/2018 3: 15 PM CDT documented as of this encounter Miscellaneous Notes * Addendum Note - Juliana Gonzalez RN - 10/14/2024 2:47 PM CSTAddended by: JULIANA GONZALEZ on: 10/14/2024 02:47 PM Modules accepted: Orders L BEARING DRILLER * Telephone Encounter - Juliana Gonzalez RN - 10/14/2024 2:46 PM JEWEL BEARING DRILLER Spoke with patient, reviewed all orders with patient. Patient is aware and verbalizes understanding. Cbc, cmp, amylase, lipase, omeprazole and zofran orders placed. Appt scheduled for 10/31/2024. L BEARING DRILLER * Addendum Note - Juliana Gonzalez RN - 10/14/2024 2:24 PM CSTAddended by: JULIANA GONZALEZ on: 10/14/2024 02:24 PM Modules accepted: Orders L BEARING DRILLER * Telephone Encounter - Juliana Gonzalez RN - 10/14/2024 2:07 PM JEWEL BEARING DRILLER Spoke with Leo Weems [employer], omeprazole 20 mg po daily #90, soft bland diet. Cbc, cmp, lipase and amylase. Zofran 4 mg po every 8 hours prn #15, refills 0. Called patient, no answer, no voicemail. Whistlestop message sent to patient. Orders pended. L BEARING DRILLER * Telephone Encounter - Juliana Gonzalez RN - 10/14/2024 1:54 PM JEWEL BEARING DRILLER Reviewed ER disposition with patient. Patient states she prefers to discuss with provider. She would go to the ER if provider recommended. Please review nurse triage and advise. L BEARING DRILLER L BEARING DRILLER * Telephone Encounter - Juliana Gonzalez RN - 10/14/2024 1:31 PM JEWEL BEARING DRILLER SITUATION: Spoke with patient, she had gallbladder removed on 07/17/2023. She reports pain when sheeat, upper abdomen pain. Left side more effected when she eats something greasy. She reports her right side always hurts. Left side pain 7 and right side 10 everyday. Pain does not go away no matter what she does. Last bm10/14/2024 noted to be diarrhea. Prior to flu A she was having formed stools. She will have 6 bm's a day, ranging from formed to loose. Does report black or tarry stools for approx one year. Denies any iron tablets, denies any pepto bismul. She states the black tarry stools are noted when she gets stressed or she does not eat for days. She states the other times she will have green or brown stools. Last black tarry stool noted on 10/10/2024. She reports speaking with Dr. Bingham about black tarrystools. Patient last seen by him on 08/27/2024. Patient states she has flu A at time of call. Patient was seen at [facility] 10/13/2024 and was given the name of Dr. Goodson in [place] to follow up with. Patient given [facility] phone number to call about making a new PCP appt. Patient last seen by Dr. Rivera around her bday. BACKGROUND: black tarry stools onset approx 09/2022, upper abd pain onset 04/2024 ASSESSMENT: Symptom Description / Location: see mychart message. Patient states her boyfriend suggested gettingmedication to help her appetitive. Patient reports upper abd pain and black tarry stools. Does report having emesis and it is noted to be foamy. Denies any coffee ground emesis. She did try to eat some soup and pizza with hot sauce and it made her nauseated. Reviewed soft bland diet. Pain (0-10): see above Temp: 104.5 F. 10/13/2024 at time of call 101.2 F. Treatment / Response: tamiflu, anti nausea and tylenol LMP / / : still having periods. RECOMMENDATION: See care advice and disposition for Guideline First positive answer recorded, all responses to prior questions were negative. If symptoms increase, change or if new symptoms develop, call your HCP or call back. Recommendations were based on caller information and is not a diagnosis. Verified and reviewed all triage information with caller. Reason for Disposition Bloody, black, or tarry bowel movements (Exception: Chronic-unchanged black-garcia bowel movements and is taking iron pills or Pepto-Bismol.) Protocols used: Rectal [id number] L BEARING DRILLER L BEARING DRILLER * Telephone Encounter - Juliana Gonzalez RN - 10/14/2024 1:02 PM JEWEL BEARING DRILLER Per Leo Weems [employer], please call patient and obtain more information. Attempted to call patient, no answer, no voicemail. [employer] message sent to patient. L BEARING DRILLER * Telephone Encounter - Berenice Weems APRN, CNP - 10/14/2024 11:45 AM CST Please call patient and get additional information in regards to her symptoms L BEARING DRILLER * Telephone Encounter - Juliana Gonzalez RN - 10/14/2024 11:36 AM JEWEL BEARING DRILLER Please see patient's mychart message. L BEARING DRILLER documented in this encounter Plan of Treatment Upcoming Encounters Date Type Department Care Team (Late st Contact Info) Description 10/31/2024 11:00 AM CDT Office Visit [facility] - Gastroenterology - [place] [address] [place] [address] Berenice Weems APRN, [employer]ELTY MAKER [address] [place] [address] Scheduled Orders Name Type Priority Associated Diagnoses Orde r Schedule COMPLETE BLOOD COUNT (CBC) WITH DIFF Lab Routine Pain of upper abdomen Expected: 10/14/2024, Expires: 10/14/2025 CMP (COMPREHENSIVE METABOLIC PANEL) Lab Routine Pain of upper abdomen Expected: 10/14/2024, Expires: 10/14/2025 LIPASE Lab Routine Pain of upper abdomen Expected: 10/14/2024, Expires: 10/14/2025 AMYLASE Lab Routine Pain of upper abdomen Expected: 10/14/2024, Expires: 10/14/2025 documented as of this encounter Goals Goal Patient Goal Type Associated Problems Recent Progress Patient-Stated? Author [facility] No Ugo Le PSYD Note: Goal/Objective: Decrease angry outbursts. Anticipated Time Frame for Goal Completion: 8 weeks Goal Reviewed with: patient Readiness to change: Ready to change Department associated with goal: [facility] Steps to achieve goal: [...] documented as of this encounter Visit Diagnoses Diagnosis Pain of upper abdomen- Primary Abdominal pain, other specified site Gastroesophageal reflux disease, unspecified whether esophagitis present Nausea Nausea alone documented in this encounter Additional Health Concerns Assessment Noted Time PHQ-9 Depression Total Score: 0 03/23/20 21 2:00 PM CDT documented as of this encounter Care Teams Senior Communications Engineer Relationship Specialty Start Date End Date Berenice Weems APRN, [employer]EL[employer] MAKER [address] [place] [address] PCP - General Primary Care 08/19/24 Sid [facility] [address] [address] Consulting Physician Colon and Rectal Surgery 06/29/23 Berenice Weems APRN, GLASS NOVELTY MAKER [address] [place] [address] Nurse Practitioner Advanced Practice Nurse 05/01/23 documented as of this encounter
--- OUTSIDE RECORDS SUMMARY | 2024-10-15 16:11 | XMS_ITS | Clinical Summary ---
Author Organization [facility] Address [address] [place] [address] Care Team Providers Care Social Media Coordinator Name Role Phone Delores Rivera MD Unavailable Robinson Rivera MD Primary Care Provider + Nirali Cordero LCSW Unavailable Unavailabl e Source Comments [facility],non-owned Affiliates and Associated Physician Practices is amultiple site organization consisting of ambulatory clinics and hospital sitesin [place], [place], [place] and [place]. This disclosure is being madepursuant to the Care Everywhere program and may not contain all information available regarding this patient. Last updated 18.[facility] Allergies Active Allergy Reactions Criticality [...] naloxone HCl (NARCAN) 4 MG/0.1ML nasal spray Pratt 1 (one) spray into the nose as [...] prim igravida 04/29/2021 Overview (06/24/2021): [facility] [place], Care Everywhere. PNL: B+/I/-/-, HIV NR Pap: [...] status Immunizations Name Administration Dates Next Due [employer] primary monoval ent 12+ yr 0.3mL Purple [...] PROBE (STL) (06/24/2021 1:23 PM CDT) Pathologist [facility] Chlamydia Amplified Probe Negative Negative 06/25/2021 2:[address] [facility] GC Amplified Probe Negative Negative 06/25/2021 2:[address] [facility] Microbiology URINE / Unknown Collection / Unknown 06/24/2021 1:23 PM CDT 06/24/2021 2:[address] [facility] - 06/25/2021 2:47 AM CDT Results based on detection/no detection of ribosomal RNA by amplified method. Blanca Rodrigues EQUIPMENT OPERATOR [facility] - MICROBI OLOGY ORDERABLES [facility] [address] [place] [address], [facility] [phone] * HIV-1 HIV-2 ANTIBODY + HIV P24 AG PANEL (04/29/2021 2:18 PM CDT) Pathologist [facility] HIV1/2 Ab + P24 Ag Non Reactive Non Reactive 04/29/2021 4:34 PM CDT [facility] Blood BLOOD SPECIMEN / Unknown Venipuncture / Unknown 04/29/2021 2:18 PM CDT 04/29/2021 3:10 PM CDT Narrative [facility] - 04/29/2021 4:34 PM CDT No Laboratory evidence of HIV infection. Sho Chung MD LAB - CHEMISTRY OR DERABLES Performing Organization Address City/[facility]/ZIP Co de Phone Number [facility] [address] [place] [address] * HEPATITIS C ANTIBODY (04/29/2021 2:18 PM CDT) HCV Antibody Screen Non Reactive Non Reactive 04/29/2021 4:34 PM CDT [facility] Blood BLOOD SPECIMEN / Unknown Venipuncture / Unknown 04/29/2021 2:18 PM CDT 04/29/2021 3:09 PM CDT Narrative [facility] - 04/29/2021 4:34 PM CDT Non Reactive - Antibodies to Hepatitis C virus (HCV) were not detected, result does not exclude early acute HCV infection. Sho Chung MD LAB - CHEMISTRY OR DERABLES Performing Organization Address [facility] Co de Phone Number [facility] [address] [place] [phone] from Last 3 Months or Most Recently Relevant to Health Maintenance Insurance Payer Benefit Plan / Group Subscriber ID Effective Dates Phone Address Type MEDICAID A[employer] BET[employer] [place] A[employer]NA BETTER HEALTH [facility] MEDICAID [id number] 06/21/2023-Pre sent [address] [place] [address] Medicaid [address] Care [place] MEDICAID - [facility] COMMUNITY PLAN C/COMMUNIT PLAN MEDICAID [id number] Effective for all dates [address] [place] [address] Medicaid Managed Care MEDICAID - OUT OF STATE MEDICAID - [place] [id number] Effective for [place] [address] Medicaid MEDICAID - OUT OF COMMUNITY HEALTH MEDICAID [place] [id number] Effective for all [place] [address] Medicaid MEDICAID - OUT OF COMMUNITY HEALTH [place]ICAID [place] [id number] Effective for all [place] [address] Medicaid MEDICAID - OUT OF COMMUNITY HEALTH MEDICAID - [place] [id number] Effective for all [place] [address] Medicaid MEDICAID - OUT OF STATE MEDICAID [facility] PUBLIC AID [id number] Effective for all dates [address] [address] [place] [address] Medicaid MEDICAID - OUT OF STATE MEDICAID [facility] PUBLIC AID [id number] Effective for all dates [address] [address] [place] [address] Medicaid [employer] [facility] MEDICAID [id number] Effective for all dates ATTN CLAIMS DEPARTMENT 1 [facility] [address] [place] [address] Medicaid Managed Care [employer] [facility] MEDICAID [id number] Effective for all dates [phone] ATTN CLAIMS DEPARTMENT 1 [facility], [facility] [address] [place] [address] Medicaid Managed Care MEDICAID - OUT OF COMMUNITY HEALTH MEDICAID [facility] PUBLIC AID [id number] 07/21/2018-Pre sent [address] [address] [place] [address] Medicaid MEDICAID - OUT OF COMMUNITY HEALTH MEDICAID [facility] PUBLIC AID [id number] Effective for all dates [address] [address] [place] [address] Medicaid MEDICAID - OUT OF STATE MEDICAID [facility] PUBLIC AID [id number] Effective for all dates [address] [address] [place] [address] Medicaid MEDICAID - OUT OF STATE MEDICAID [facility] PUBLIC AID [id number] Effective for all dates [address] [address] [place] [address] Medicaid MEDICAID - OUT OF COMMUNITY HEALTH MEDICAID [facility] PUBLIC AID [id number] Effective for all dates [address] [address] [place] [address] Medicaid MEDICAID - OUT OF COMMUNITY HEALTH MEDICAID [facility] PUBLIC AID [id number] Effective for all dates [address] [address] [place] [address] Medicaid [facility] [employer] [id number] Effective for all dates [address] [address] [place] [address] Medicaid Managed Care MEDICAID - OUT OF STATE MEDICAID [facility] PUBLIC AID [id number] Effective for all dates [address] [address] [place] [address] Medicaid DCFS,[employer]ARMIL[employer] ICES Personal/Family Other [address] [place] [address] [employer]CFS,[employer] Personal/Family Other [address] [place] [address] [employer]CFS,[employer] Personal/Family Other [address] [place] [address] DCFS,[employer] Personal/Family Other [address] [place] [address] [employer]CF[employer] Personal/Family Other [address] [place] [address] [employer]CF[employer] Personal/Family Other [address] [place] [address] DCFS,LISA C Personal/Family Other [address] [address] [employer]CFS,[employer] Personal/Family Other [address] [address] JULIANA BOATENG Personal/Family Other [address] [place] [address] Advance Directives * Full Code (Latest Code Status on File) Date Activated Date Inactivated Comments 06/08/2018 4:22 AM 06/15/2018 9:06 AM * Full Code Date Activated Date Inactivated Comments 02/28/2018 5:54 AM 03/09/2018 3:41 PM Care Teams Social Media Coordinator Relationship Specialty Start Date End Date Robinson Rivera MD PCP - General Pediatrics 04/08/19 Delores Rivera MD 06/10/18 Nirali Cordero LCSW Outpatient Lead Pony Rider 05/27/21
--- OUTSIDE RECORDS SUMMARY | 2024-10-15 16:11 | XMS_ITS | Patient Health Summary ---
Author Organization [facility] Address [address] [place] [address] Care Team Providers Care Paper Products Machine Operator Name Role Phone Delores Rivera MD Unavailable [phone] Robinson Rivera MD Primary Care Provider + Nirali Cordero LCSW Unavailable Unavailabl e Note from [facility],non-owned Affiliates and Associated Physician Practices is amultiple site organization consisting of ambulatory clinics and hospital sitesin [place], [place], [place] and [place]. This disclosure is being madepursuant to the Care Everywhere program and may not contain all information available regarding this patient. Last updated 18.[facility] Allergies * Sulfamethoxazole W-Trimethoprim(Urticaria) -Medium Criticality * [...] HCl (NARCAN) 4 MG/0.1ML nasal spray(Started 04/29/2021) Cheraw 1 (one) spray into the nose as [...] Opioid use disorder, severe, in sustained remission ([facility]), Methamphetamine use disorder, severe, in early remission ([facility]) * CULTURE URINE(Performed 06/24/2021) Performed for Group B Streptococcus urinary tract infection affecting in second trimester([facility]) * CHLAMYDIA + GC AMPLIFIED PROBE(Performed 06/24/2021) Performed for Gonorrhea affecting in second trimester ([facility]) * TRICHOMONAS VAGINALIS AMPLIFIED PROBE(Performed 06/24/2021) Performed for Trichomonas vaginitis * URINE DRUG SCREEN IMMUNOASSAY(Performed 06/24/2021) Performed for Supervision of high-risk of young primigravida ([facility]) * GLUCOSE PROTEIN KETONE URINE - POINT OF CAR(Performed 06/24/2021) Performed for Supervision of high-risk of young primigravida ([facility]) * URINE MICROSCOPIC ONLY REFLEX TO CULTURE(Performed 05/27/2021) Performed for Dysuria * URINALYSIS REFLEX MICROSCOPIC REFLEX CULTURE(Performed 05/27/2021) Performed for Dysuria * CULTURE URINE(Performed 05/27/2021) Performed for Dysuria * TRICHOMONAS VAGINALIS AMPLIFIED PROBE(Performed 05/27/2021) Performed for Vaginal discharge during in second trimester ([facility]) * GLUCOSE PROTEIN KETONE URINE - POINT OF CAR(Performed 05/27/2021) Performed for Supervision of high-risk of young primigravida ([facility]) * SONOGRAM - COMPLETE(Performed 05/27/2021) Performed for Methamphetamine use disorder, severe, in early remission ([facility]), Opioid use disorder, severe, in sustained remission ([facility]) * URINE DRUG SCREEN IMMUNOASSAY(Performed 05/27/2021) Performed for Supervision of high-risk of young primigravida ([facility]) * URINE DRUG SCREEN IMMUNOASSAY(Performed 04/29/2021) Performed for Supervision of high-risk of young primigravida ([facility]) * CULTURE URINE(Performed 04/29/2021) Performed for Supervision of high-risk of young primigravida ([facility]) * TRICHOMONAS VAGINALIS AMPLIFIED PROBE(Performed 04/29/2021) Performed for Supervision of high-risk of young primigravida ([facility]) * TYPE + SCREEN PANEL(Performed [...] Methamphetamine use disorder, severe, in early remission ([facility]), Opioid use disorder, severe, in sustained remission ([facility]), Establish gestational age, ultrasound ([facility]) * EEG(Performed 11/21/2018) Performed for Seizure ([facility]) * XR PELVIS W BILAT [...] PM CDT Narrative 06/24/2021 3:[address] [facility] PHONE: FAX: Pat. Name: GUILLERMINA SOUZA. No: [id number] Study Date: 06/24/2021 1:55pm , Age: 13 2000, 20 Pregnancies: 1 Height: 62 in Weight: 190 lb LMP: Unknown GA by Base: 22w5d AGGIE: 10/23/2021 GA by US: 22w3d AGGIE: 10/25/2021 GA Selected: 22w5d (From [facility]) AGGIE: 10/23/2021 Referring MD: Sho Chung MD Cracking And Fanning Machine Operator: Makeda Santiago CPT4: 33328 BMI: 34.75 Hist/Ind: Incomplete anatomic survey History of heroin use Weight loss Teen Class I obesity NIPT: low risk (female) MEASUREMENTS & AGE GROWTH EVALUATION Measurement GA Range Srce %for GA Ratios ----- ---- ------- BPD 5.6 cm 23w1d ([id number]) Hadl BPD 63% FL/BPD 0.69 HC 21.4 cm 23w3d ([id number]) Hadl HC 66% FL/AC 0.22 (0.20 - 0.24) AC 17.3 cm 22w2d ([id number]) Hadl AC 27% HC/AC 1.24 (1.04 - 1.23* FL 3.9 cm 22w3d (73i0d-46d4v) Hadl FL 29% CI 0.72 (0.70 - 0.86) HL 3.8 cm 23w1d ([id number]-80e2t) Aditya HL 57% GA for sonogram 22w3d (91t0x-53f9j) Weight Estimate: based on (BPD,HC,AC,FL) Hadlock Weight: [...] <Electronic Signature> 06/24/2021 03:17pm Franco Mulligan MD [facility] ORDERABLES * (ABNORMAL) TRICHOMONAS VAGINALIS AMPLIFIED PROBE (06/24/2021 1:23 PM CDT) Only the most recent of4 resultswithin the time period is included. Trichomonas vaginalis Amplified Probe Positive( A) Negative 06/25/2021 2:47 AM CDT [facility] Other URINE / Unknown Collection / Unknown 06/24/2021 1:23 PM CDT 06/24/2021 2:15 PM CDT Narrative [facility] - 06/25/2021 2:47 AM CDT This test was developed and its performance characteristics determined by the [facility], [facility]. Urine specimens tested by the [facility] have not been cleared or approved by the U.S. Food and Drug Administration (FDA). The laboratory is regulated under the Clinical Laboratory Improvement Amendments (CLIA) as qualified to perform high-complexity testing. This test is used for clinical purposes. It should not be regarded as investigational or for research. Results based on detection/no detection of ribosomal RNA by amplified method. Blanca Rodrigues APRN-[facility] ORDERABLES Performing Organization Address [facility] Co de Phone Number [facility] [address] [place] [address], [facility] [phone] * CHLAMYDIA + GC AMPLIFIED PROBE (STL) (06/24/2021 1:23 PM CDT) Chlamydia Amplified Probe Negative Negative 06/25/2021 2:47 AM CDT [facility] GC Amplified Probe Negative Negative 06/25/2021 2:47 AM CDT [facility] Microbiology URINE / Unknown Collection / Unknown 06/24/2021 1:23 PM CDT 06/24/2021 2:16 PM CDT Narrative [facility] - 06/25/2021 2:47 AM CDT Results based on detection/no detection of ribosomal RNA by amplified method. Blanca Rodrigues [facility] ORDERABLES Performing Organization Address City/[facility]/ZIP Co de Phone Number [facility] [address] [place] [address], [facility] [phone] * CULTURE URINE (06/24/2021 1:23 PM CDT) Only the most recent of5 resultswithin the time period is included. Culture Urine <10,000 CFU/mL urogenital della GARY 06/25/2021 10:12 PM CDT [facility] Urine URINE SPECIMEN OBTAINED BY CLEAN CATCH PROCEDURE / Unknown Collection / Unknown 06/24/2021 1:23 PM CDT 06/24/2021 2:16 PM CDT Blanca E Lilia MOLD STACKER-BURLING AND JOINING SUPERVISOR LAB - MICROBI OLOGY ORDERABLES [facility] MICROBIOLOG[facility] [address] [place] [address], [facility] [phone] * (ABNORMAL) URINE DRUG SCREEN IMMUNOASSAY (06/24/2021 1:06 PM CDT) Only the most recent of3 resultswithin the time period is included. Pathologist [facility] Amphetamines Screen Urine Not detected Not detected 06/24/2021 3:13 PM CDT [facility] Barbiturates Screen Urine Not detected Not detected 06/24/2021 3:13 PM CDT [facility] Benzodiazepines Screen Urine Not detected Not detected 06/24/2021 3:13 PM CDT [facility] Cannabinoids Screen Urine Detected(A) Not detected 06/24/2021 3:13 PM CDT [facility] Cocaine Screen Urine Not detected Not detected 06/24/2021 3:13 PM CDT [facility] Fentanyl Urine Not detected Not detected 06/24/2021 3:13 PM CDT [facility] Methadone Screen Urine Not detected Not detected 06/24/2021 3:13 PM CDT [facility] Opiate Screen Urine Not detected Not detected 06/24/2021 3:13 PM CDT [facility] Phencyclidine Screen Urine Not detected Not detected 06/24/2021 3:13 PM CDT [facility] Urine URINE / Unknown [...] 300 ng/mL PHENCYCLIDINE(PCP) 25 ng/mL Edwige Rodriguez MOLD STACKER-BURLING AND JOINING SUPERVISOR LAB - URINE ELLEN CORINNE ORDERABLES Performing Organization Address [facility]/ZIP Co de Phone Number [facility] [address] [place] [phone] * GLUCOSE PROTEIN KETONE URINE - POINT [...] 06/24/2021 1 :05 PM CDT Edwige Rodriguez [facility] LAB - POINT OF CARE ORDERABLES Performing Organization Address [facility] de Phone Number [facility] POCT TESTING [address] [place] [address] * (ABNORMAL) URINE MICROSCOPIC ONLY REFLEX TO [...] PM CDT 05/27/2021 3:38 PM CDT Narrative [facility] - 05/27/2021 3:50 PM CDT Blanca Rodrigues MOLD STACKER-BURLING AND JOINING SUPERVISOR LAB - URINALY SIS ORDERABLES [facility] [address] [place] [address] * (ABNORMAL) URINALYSIS REFLEX MICROSCOPIC REFLEX CULTURE (05/27/2021 3:15 PM CDT) Color UA Straw Straw, Yellow 05/27/2021 3:50 PM CDT [facility] Clarity UA Slt Cloudy(A) Clear 05/27/2021 3:50 PM CDT [facility] Glucose UA Negative Negative 05/27/2021 3:50 PM CDT [facility] Bilirubin UA Negative Negative 05/27/2021 3:50 PM CDT [facility] Ketone UA Negative Negative 05/27/2021 3:50 PM CDT [facility] Specific [place] UA 1.000(L) 1.005 - 1.030 05/27/2021 3:50 PM CDT [facility] Blood UA 1+(A) Negative 05/27/2021 3:50 PM CDT [facility] pH UA 6.0 5.0 - 8.0 pH 05/27/2021 3:50 PM CDT [facility] Protein UA Negative Negative 05/27/2021 3:50 PM CDT [facility] Urobilinogen UA Negative Negative mg/dL 05/27/2021 3:50 PM CDT [facility] Nitrite UA Negative Negative 05/27/2021 3:50 PM CDT [facility] Leukocyte UA 3+(A) Negative 05/27/2021 3:50 PM CDT [facility] Urine Microscopy Urine microscopy to follow 05/27/2021 3:50 PM CDT [facility] Reflex Status Culture to follow 05/27/2021 3:50 PM CDT [facility] Urine URINE SPECIMEN OBTAINED BY CLEAN CATCH PROCEDURE / Unknown Collection / Unknown 05/27/2021 3:15 PM CDT 05/27/2021 3:38 PM CDT Narrative [facility] - 05/27/2021 3:50 PM CDT Blanca Rodrigues MOLD STACKER-BURLING AND JOINING SUPERVISOR LAB - URINALY SIS ORDERABLES Performing Organization Address City/[facility]/ZIP Co de Phone Number [facility] [address] [place] [phone] * TSH REFLEX FREE T4 (04/29/2021 2:19 PM CDT) TSH 1.049 0.350 - 4.940 uIU/mL 04/29/2021 4:13 PM CDT [facility] Blood BLOOD SPECIMEN / Unknown Venipuncture / Unknown 04/29/2021 2:19 PM CDT 04/29/2021 3:09 PM CDT Sho Chung MD LAB - CHEMISTRY OR DERABLES Performing Organization Address City/[facility]/ZIP Co de Phone Number [facility] [address] [place] [address] * TYPE + SCREEN PANEL (04/29/2021 2:19 PM CDT) ABO Rh B POS 04/29/2021 3:52 PM CDT [facility] Comment:No history; collect retype. Antibody Screen NEG 3:52 PM CDT [facility] Blood Bank BLOOD SPECIMEN / Unknown Venipuncture / Unknown 04/29/2021 2:19 PM CDT 04/29/2021 3:10 PM CDT Sho Chung MD LAB - BLOOD BANK O RDERABLES Performing Organization Address City/[facility]/ZIP Co de Phone Number [facility] [address] [place] [address] * CYSTIC FIBROSIS MUTATION PANEL (04/29/2021 2:19 PM CDT) Cystic Fibrosis Screen Comment: 05/07/2021 5:08 PM CDT [facility] ([facility]) Comment: RESULTS: Negative for 32 [...] a carrier of cystic fibrosis, please contact [employer] at for a revised report. Mutation Detection Detection rates are based on mutation Rates among Ethnic frequencies in patients affected with Groups cystic fibrosis. Among individuals with an atypical or mild presentation (e.g. congenital absence of the vas deferens, pancreatitis) detection rates may vary from those provided here: Carrier risk reduction when no family history Detection Ethnicity Rate Ashkenazi 09/15 to 97% Muslim 09/14 to 90% (non-) -Tuvaluan to 69% to 73% to 55% This interpretation is based on the clinical and family relationship information provided and the current understanding of the molecular genetics of this condition. MUTATIONS ANALYZED: G85E V520F V6185T 2183AA to G R117H G542X B5867S 2184delA R334W S549N 394delTT 2789+5G to A R347H S549R 621+1G to T 3120+1G to A R347P G551D 711+1G to T 3659delC A455E R553X 1078delT 3849+10kbC to T HeiqmN967 R560T 1717-1G to A 3876delA ZrlqnR161 T6383W 1898+1G to A 3905insT METHODS/LIMITATIONS: DNA is isolated from the sample and tested for the 32 CF mutations on the [place] Array Platform (Integrated biometrics). Regions of the CFTR gene are amplified enzymatically and subjected to a solution-phase multiplex allele-specific primer extension with subsequent hybridization to a bead array and fluorescence detection. Polymorphisms F508C, I506V and I507V are included in this panel to rule out false positive [id number] homozygotes. Reflex testing of 5T is included in the panel for R117H interpretation. False positive or negative results may occur for reasons that include genetic variants, blood transfusions, bone marrow transplantation, erroneous representation of family relationships or contamination of a sample with maternal cells. REFERENCES: 1. Updates on Carrier Screening for Cystic Fibrosis. (2011) Am J Ob Gynecol 117(4):6678-9373 2. Sanju et al. (2004) Teri Med 6:387-91 3. Sandra et al. (2002) Teri Med 4:379-391 4. Preconception and carrier screening for cystic fibrosis: (2001)ACOG.ACMG publication Results Released By: Memo Frye, Ph.D. Director Speech Language Report Released By: Memo Frye, Ph.D. Director Speech Language Comment Comment 05/07/2021 5:08 PM CDT [facility] ([facility]) Comment: The assay provides information [...] CDT 04/29/2021 3:10 PM CDT Narrative [facility] ([facility]) - 05/07/2021 5:08 PM CDT Performed at: [address] [place], [place] [address] [place], [place] [id number] End User Support Specialist: Patricia Carrasco [facility], Phone: [phone] Sho Chung MD LAB - HEMATOLOGY O RDERABLES [facility] ([facility]) [address] [place] [address] * SYPHILIS ANTIBODY CASCADING REFLEX (04/29/2021 2:18 PM CDT) Treponema pallidum Antibody Non Reactive Non Reactive 04/29/2021 5:15 PM CDT [facility] Comment: No Laboratory evidence of syphilis infection. Note: Circulating antibodies may be low or undetectable in early infection. If recent exposure is suspected, re-draw sample in 2-4 weeks and repeat testing. Blood BLOOD SPECIMEN / Unknown Venipuncture / Unknown 04/29/2021 2:18 PM CDT 04/29/2021 3:10 PM CDT Sho Chung MD LAB - SEROLOGY ORD ERABLES Performing Organization Address [facility] Co de Phone Number [facility] [address] [place] [phone] * HIV-1 HIV-2 ANTIBODY + HIV P24 AG PANEL (04/29/2021 2:18 PM CDT) Only the most recent of3 resultswithin the time period is included. [facility] HIV1/2 Ab + P24 Ag Non Reactive Non Reactive 04/29/2021 4:34 PM CDT [facility] Blood BLOOD SPECIMEN / Unknown Venipuncture / Unknown 04/29/2021 2:18 PM CDT 04/29/2021 3:10 PM CDT Narrative [facility] - 04/29/2021 4:34 PM CDT No Laboratory evidence of HIV infection. Sho Chung MD LAB - CHEMISTRY OR DERABLES Performing Organization Address [facility] de Phone Number [facility] [address] [place] [address] * RUBELLA ANTIBODY IGG (04/29/2021 2:18 PM CDT) [facility] Rubella Antibody 1.16 Immune >0.99 index 05/01/2021 8:14 AM CDT [facility] ([facility]) Comment: Non-immune <0.90 Equivocal 0.90 - 0.99 Immune >0.99 Blood BLOOD SPECIMEN / Unknown Venipuncture / Unknown 04/29/2021 2:18 PM CDT 04/29/2021 3:09 PM CDT Narrative [facility] ([facility]) - 05/01/2021 8:14 AM CDT Performed at: 01 - [facility] [address], [place], [place] [id number] End User Support Specialist: Nabeel Purcell PhD, Phone: [phone] Sho Chung MD LAB - SEROLOGY ORD ERABLES [facility] ([facility]) [address] [place] [address] * (ABNORMAL) CBC W AUTO DIFFERENTIAL (04/29/2021 2:18 PM CDT) Only the most recent of2 resultswithin the time period is included. WBC 9.7 4.5 - 11.0 x10E9/L 04/29/2021 3:24 PM CDT [facility] WBC Corrected 04/29/2021 3:24 PM CDT [facility] RBC 4.14 4.10 - 5.10 x10E12/L 04/29/2021 3:24 PM CDT [facility] Hemoglobin 12.4 12.0 - 16.0 gm/dL 04/29/2021 3:24 PM CDT [facility] Hematocrit 36.3 36.0 - 47.0 % 04/29/2021 3:24 PM CDT [facility] MCV 87.7 78.0 - 102.0 fl 04/29/2021 3:24 PM CDT [facility] MCH 30.0 25.0 - 35.0 pg 04/29/2021 3:24 PM CDT [facility] MCHC 34.2 31.0 - 37.0 gm/dL 04/29/2021 3:24 PM CDT [facility] Platelet Count 318 100 - 400 x10E9/L 04/29/2021 3:24 PM CDT [facility] RDW-CV 12.9 11.5 - 14.0 % 04/29/2021 3:24 PM CDT [facility] MPV 10.9(H) 6.0 - 9.5 fl 04/29/2021 3:24 PM CDT [facility] Neutrophils % 74.3 31.0 - 78.0 % 04/29/2021 3:24 PM CDT [facility] Lymphocytes % 17.4 13.0 - 54.0 % 04/29/2021 3:24 PM CDT [facility] Monocytes % 6.2 4.0 - 13.0 % 04/29/2021 3:24 PM CDT [facility] Eosinophils % 1.0 0.0 - 8.0 % 04/29/2021 3:24 PM CDT [facility] Basophils % 0.5 % 04/29/2021 3:24 PM CDT [facility] Immature Granulocytes 0.6 % 04/29/2021 3:24 PM CDT [facility] Neutrophil Absolute 7.19 1.4 - 8.58 x10E9/L 04/29/2021 3:24 PM CDT [facility] Lymphocytes Absolute 1.69 0.59 - 5.94 x10E9/L 04/29/2021 3:24 PM CDT [facility] Monocytes Absolute 0.60 0.18 - 1.43 x10E9/L 04/29/2021 3:24 PM CDT [facility] Eosinophils Absolute 0.10 0 - 0.88 x10E9/L 04/29/2021 3:24 PM CDT [facility] Basophils Absolute 0.05 0 - 0.22 x10E9/L 04/29/2021 3:24 PM CDT [facility] Immature Granulocytes Absolute 0.06 0 - 0.11 x10E9/L 04/29/2021 3:24 PM CDT [facility] nRBC Auto 0 /100 WBC 04/29/2021 3:24 PM CDT [facility] Blood BLOOD SPECIMEN / Unknown Venipuncture / Unknown 04/29/2021 2:18 PM CDT 04/29/2021 3:10 PM CDT Sho Chung MD LAB - HEMATOLOGY O RDERABLES [facility] [address] [place] [address] * (ABNORMAL) COMPREHENSIVE METABOLIC PANEL (04/29/2021 2:18 PM CDT) Only the most recent of2 resultswithin the time period is included. [facility] Glucose 75 70 - 105 mg/dL 04/29/2021 4:47 PM CDT [facility] Sodium 139 136 - 145 mmol/L 04/29/2021 4:47 PM CDT [facility] Potassium 4.3 3.5 - 5.1 mmol/L 04/29/2021 4:47 PM CDT [facility] Chloride 104 98 - 107 mmol/L 04/29/2021 4:47 PM CDT [facility] CO2 24 20 - 28 mmol/L 04/29/2021 4:47 PM CDT [facility] Calcium 9.4 8.4 - 10.4 mg/dL 04/29/2021 4:47 PM CDT [facility] Anion Gap 11 8 - 18 mmol/L 04/29/2021 4:47 PM CDT [facility] BUN 4(L) 7 - 18.7 mg/dL 04/29/2021 4:47 PM CDT [facility] Creatinine 0.56(L) 0.57 - 1.11 mg/dL 04/29/2021 4:47 PM CDT [facility] Alkaline Phosphatase 73 40 - 150 U/L 04/29/2021 4:47 PM CDT [facility] ALT 21 0 - 61 U/L 04/29/2021 4:47 PM CDT [facility] AST 16 5 - 34 U/L 04/29/2021 4:47 PM CDT [facility] Protein Total 6.9 6.4 - 8.3 gm/dL 04/29/2021 4:47 PM CDT [facility] Albumin 3.9 3.4 - 5.0 gm/dL 04/29/2021 4:47 PM CDT [facility] Bilirubin Total 0.4 0.2 - 1.2 mg/dL 04/29/2021 4:47 PM CDT [facility] eGFR by MDRD >60 >60 mL/min/1.7 3m2 04/29/2021 4:47 PM CDT [facility] eGFR by MDRD >60 >60 mL/min/1.7 3m2 04/29/2021 4:47 PM CDT [facility] Blood BLOOD SPECIMEN / Unknown Venipuncture / Unknown 04/29/2021 2:18 PM CDT 04/29/2021 3:10 PM CDT Sho Chung MD LAB - CHEMISTRY OR DERABLES [facility] [address] [place] [address] * HEPATITIS B SURFACE ANTIGEN W RFLX CONFIRMATION (04/29/2021 2:18 PM CDT) HBsAg Non Reactive Non Reactive 04/29/2021 5:15 PM CDT [facility] Blood BLOOD SPECIMEN / Unknown Venipuncture / Unknown 04/29/2021 2:18 PM CDT 04/29/2021 3:10 PM CDT Sho Chung MD LAB - CHEMISTRY OR DERABLES Performing Organization Address [facility] Co de Phone Number [facility] [address] [place] [address] * HEPATITIS C ANTIBODY (04/29/2021 2:18 PM CDT) HCV Antibody Screen Non Reactive Non Reactive 04/29/2021 4:34 PM CDT [facility] Blood BLOOD SPECIMEN / Unknown Venipuncture / Unknown 04/29/2021 2:18 PM CDT 04/29/2021 3:09 PM CDT Narrative [facility] - 04/29/2021 4:34 PM CDT Non Reactive - Antibodies to Hepatitis C virus (HCV) were not detected, result does not exclude early acute HCV infection. Sho Chung MD LAB - CHEMISTRY OR DERABLES Performing Organization Address [facility] Co de Phone Number [facility] [address] [place] [phone] * EEG (11/21/2018 5:46 PM CDT) Narrative [facility] - 11/21/2018 5:46 PM CDT Carlos Matos MD 11/21/2018 5:46 PM Name: Guillermina Souza CSN: [id number] Type: Routine Date of Test: 11/20/2018 Ordering Provider: Robinson Rivera MD PCP: Robinson Rivera MD Cottrell Blower: Carlos Matos MD Routine EEG Report DESCRIPTION [...] clinical correlation is recommended. Carlos Matos MD Sdc Teacher Child Neurology and Epilepsy [facility] Delores Rivera MD NEUROLOGY [facility] Organization Address City/State/ZIP Co de Phone Number [facility] * XR PELVIS W BILAT HIP 2VW (09/28/2018 3:07 PM SUPERVISOR BONDING) Anatomical Region Laterality Modality Pelvis, Lower Extremity Radiogra [facility] Impressions 09/28/2018 5:20 PM SUPERVISOR [employer]ONDING Bilateral femoral neck cam deformities. Reading Radiologist: Juan Villalba MD on 09/28/2018 at 5:20 PM Narrative 09/28/2018 5:20 PM SUPERVISOR [employer] INDICATION: Bilateral hip pain, chronic EXAMINATION: 3 [...] AP PELVIS 1 VIEW (09/28/2018 2:23 PM SUPERVISOR BONDING) Anatomical Region Laterality Modality Pelvis Radiographic Judy ging 09/28/2018 2:54 PM SUPERVISOR [employer]ONDING Addenda Addendum by Juan Villalba MD on 09/28/2018 5:25 PM SUPERVISOR [employer]OND[employer] Bilateral acetabular crossover sign is noted with the anterior acetabulum lateral to the posterior acetabulum superiorly. However, the pelvic rotation is not optimal with the sacrococcygeal joint greater than 6 cm cephalad to the superior margin of the pubic symphysis, which may overestimate acetabular crossover. Addending Radiologist: Juan Villalba MD on 09/28/2018 at 5:22 PM Impressions 09/28/2018 2:57 PM [employer]PERVIS[employer] Normal exam. Dictated by Aileen Mendosa MD, (vice president talent management). Juan Colmenares, have personally reviewed the images and I agree with this report. Reading Radiologist: Juan Villalba MD on 09/28/2018 at 2:57 PM Narrative 09/28/2018 2:57 PM SUPERVISOR [employer]ONDING EXAM: Pelvis 1 view HISTORY: 18-year-old with [...] Normal exam. Dictated by Aileen Mendosa MD, (vice president talent management). Juan Colmenares, have personally reviewed the images and I agree with this report. Reading Radiologist: Juan Villalba MD on 09/28/2018 at 2:57 PM Tory Robbins PA-C DIAGNOSTIC IMAGING O RDERABLES * BACTERIAL VAGINOSIS + YEAST SMEAR (06/14/2018 1:52 PM CDT) Clue Cells No Clue Cells Seen No Clue Cells Seen 06/14/2018 8:29 PM CDT [facility] Yeast No Yeast Seen No Yeast Seen 06/14/20 18 8:29 PM CDT [facility] Grzegorz Score Grzegorz Score 0-3: Consistent with normal vaginal della Grzegorz Score 0-3: Consistent with normal vaginal della 06/14/2018 8:29 PM CDT [facility] Microbiology ENTIRE VAGINA / Unknown Collection / Unknown 06/14/2018 1:52 PM CDT 06/14/2018 2:12 PM CDT Greyson Figueroa MD LAB - MICROBIOL OGY ORDERABLES [facility] [address] [place] [address], [facility] [phone] * XR CHEST 2VW (06/13/2018 9:27 AM [...] UA Yellow Straw, Yellow 06/08/2018 8:53 AM [facility] Clarity UA Clear Clear 06/08/2018 8:53 AM [facility] Glucose UA Negative Negative 06/08/2018 8:53 AM [facility] Bilirubin UA Negative Negative 06/08/2018 8:53 AM [facility] Ketone UA Negative Negative 06/08/2018 8:53 AM [facility] Specific [place] UA <=1.005 1.005 - 1.030 06/08/2018 8:53 AM [facility] Blood UA Negative Negative 06/08/2018 8:53 AM [facility] pH UA 6.5 5.0 - 8.0 pH 06/08/2018 8:53 AM [facility] Protein UA Negative Negative 06/08/2018 8:53 AM [facility] Urobilinogen UA Negative Negative mg/dL 06/08/2018 8:53 AM [facility] Nitrite UA Negative Negative 06/08/2018 8:53 AM [facility] Leukocyte UA 2+(A) Negative 06/08/2018 8:53 AM [facility] RBC UA None Seen None Seen, 0-2, 3-5 # /hpf 06/08/2018 8:53 AM [facility] WBC UA 0-5 None Seen, 0-5 # /hpf 06/08/2018 8:53 AM [facility] Bacteria UA Trace(A) None Seen 06/08/2018 8:53 AM [facility] Squamous Epithelial Cells 0-2 None Seen, 0-2, 3-5 /hpf 06/08/2018 8:53 AM [facility] Reflex Status Culture to follow 06/08/2018 8:53 AM CDT [facility] Urine URINE SPECIMEN OBTAINED BY CLEAN CATCH PROCEDURE / Unknown Collection / Unknown 06/08/2018 8:28 AM CDT 06/08/2018 8:39 AM CDT Marely Scott MD LAB - URINALYSIS OR DERABLES Performing Organization Address City/[facility] Co de Phone Number [facility] [address] [place] [address] * CHLAMYDIA + GC AMPLIFIED PROBE (06/08/2018 8:28 AM CDT) Only the most recent of3 resultswithin the time period is included. [facility] Chlamydia Amplified Probe Negative Negative 06/09/2018 1:30 PM CDT [facility] GC Amplified Probe Negative Negative 06/09/2018 1:30 PM CDT [facility] Microbiology URINE / Unknown Collection / Unknown 06/08/2018 8:28 AM CDT 06/08/2018 8:39 AM CDT Narrative [facility] - 06/09/2018 1:30 PM CDT Results based on detection/no detection of ribosomal RNA by amplified method. Marely Scott MD LAB - MICROBIOLOGY ORDERABLES Performing Organization Address [facility] de Phone Number [facility] [address] [place] [address], [facility] [phone] * DRUG SCREEN TOX COMPREHESIVE URINE PANEL (06/08/2018 8:28 AM CDT) Only the most recent of2 resultswithin the time period is included. [facility] Drug Screen Urine Comprehensive Panel See Scanned Report 06/08/2018 2:48 PM CDT [facility] Urine URINE / Unknown Collection / Unknown 06/08/2018 8:28 AM CDT 06/08/2018 8:40 AM CDT Marely Scott MD LAB - URINE PARIMUTUEL TICKET CASHIER RY ORDERABLES Performing Organization Address City/[facility] Co de Phone Number [facility] [address] [place] [phone] * HCG URINE QUAL POCT NOTIFICATION (06/08/2018 7:42 AM CDT) Pathologist [facility] Comment Notification Label Only - See Separate Report 06/08/2018 9:00 AM CDT [facility] Urine URINE / Unknown 06/08/2018 7 :42 AM CDT 06/08/2018 7:42 AM CDT Marely Scott MD LAB - URINALYSIS OR DERABLES Performing Organization Address City/[facility]/ZIP Co de Phone Number [facility] [address] [place] [phone] * HCG URINE QUALITATIVE (06/08/2018 7:42 AM CDT) Pathologist [facility] hCG Qualitative Urine Negative Negative 06/08/2018 9:11 AM CDT [facility] Urine URINE / Unknown 06/08/2018 7 :42 AM CDT 06/08/2018 7:42 AM CDT Delaney Mckeon DO LAB - URINALYSIS ORD ERABLES Performing Organization Address [facility] Co de Phone Number [facility] [address] [place] [phone] * RPR (06/08/2018 6:12 AM CDT) Only the most recent of2 resultswithin the time period is included. Pathologist [facility] RPR Non Reactive Non Reactive 06/09/2018 10:37 AM CDT [facility] Blood BLOOD SPECIMEN / Unknown Lab Venipuncture / Unknown 06/08/2018 6:12 AM CDT 06/08/2018 6:12 AM CDT Marely Scott MD LAB - CHEMISTRY ORD ERABLES Performing Organization Address City/[facility]/ZIP Co de Phone Number [facility] [address] [place] [address] * EKG 15-LEAD (06/08/2018 4:56 AM CDT) Only the most recent of4 resultswithin the time period is included. Ventricular Rate 63 BPM CG MUSE Atrial Rate 63 BPM CG MUSE P-R Interval 130 ms CG MUSE QRS Duration ms 94 ms CG MUSE Q-T Interval ms 412 ms CG MUSE QTC Calculation (Bezet) 421 ms CG MUSE Calculated P [place] 49 degrees CG MUSE Calculated R [place] 71 degrees CG MUSE Calculated T [place] 59 degrees CG MUSE Interpretation EKG * Pediatric ECG Analysis * Normal sinus rhythm Normal ECG Confirmed by VALERIE BARAHONA ([id number]) on 06/09/2018 4:01:32 PM CG MUSE 06/08/2018 4:56 AM CDT 06/09/2018 4:01 PM CDT Wagner Quevedo DO ECG ORDERABLES Performing Organization Address City/State/[facility] Co de Phone Number CG MUSE [...] tilt. Enmanuel Le MD DIAGNOSTIC IMAGING [facility] Care Teams Paper Products Machine Operator Relationship Specialty Start Date End Date Robinson Rivera MD PCP - General Pediatrics 04/08/19 Delores Rivera MD 06/10/18 Nirali Cordero LCSW Outpatient Aircraft Maintenance Instructor 05/27/21
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
--- OUTSIDE RECORDS SUMMARY | 2024-10-15 16:11 | XMS_ITS | Referral Summary ---
Author Organization [facility] [employer] Address [address] [place] [address] Care Team Providers Care Repairer Handtools Name Role Phone Delores Rivera MD Unavailable Robinson Rivera MD Primary Care Provider + Nirlai Cordero LCSW Unavailable Unavailabl e Source Comments [facility],non-owned Affiliates and Associated Physician Practices is amultiple site organization consisting of ambulatory clinics and hospital sitesin [place], [place], [place] and [place]. This disclosure is being madepursuant to the Care Everywhere program and may not contain all information available regarding this patient. Last updated 18.[facility] Allergies Active Allergy Reactions Criticality Noted [...] naloxone HCl (NARCAN) 4 MG/0.1ML nasal spray [place] 1 (one) spray into the nose as [...] prim igravida 04/29/2021 Overview (06/24/2021): [facility] [place], Care Everywhere. PNL: B+/I/-/-, HIV NR Pap: [...] status Immunizations Name Administration Dates Next Due CovSurvmetrics primary monoval ent 12+ yr 0.3mL Purple [...] Negative Negative 06/25/2021 2:47 AM CDT [facility] GC Amplified Probe Negative Negative 06/25/2021 2:47 AM CDT [facility] Microbiology URINE / Unknown Collection / Unknown 06/24/2021 1:23 PM CDT 06/24/2021 2:16 PM CDT Narrative [facility]CRO[facility] - 06/25/2021 2:47 AM CDT Results based on detection/no detection of ribosomal RNA by amplified method. Blanca Rodrigues INVENTORY ANALYST-CHALK TESTER LAB - MICROBI OLOGY ORDERABLES [facility] [address] [place] [address], [facility] [phone] * HIV-1 HIV-2 ANTIBODY + HIV P24 AG PANEL (04/29/2021 2:18 PM CDT) HIV1/2 Ab + P24 Ag Non Reactive Non Reactive 04/29/2021 4:34 PM CDT [facility] Blood BLOOD SPECIMEN / Unknown Venipuncture / Unknown 04/29/2021 2:18 PM CDT 04/29/2021 3:10 PM CDT Narrative [facility] - 04/29/2021 4:34 PM CDT No Laboratory evidence of HIV infection. Sho Chung MD LAB - CHEMISTRY OR DERABLES Performing Organization Address City/[facility]/ZIP Co de Phone Number [facility] [address] [place] [address] * HEPATITIS C ANTIBODY (04/29/2021 2:18 PM CDT) Pathologist [facility] HCV Antibody Screen Non Reactive Non Reactive 04/29/2021 4:34 PM CDT [facility] Blood BLOOD SPECIMEN / Unknown Venipuncture / Unknown 04/29/2021 2:18 PM CDT 04/29/2021 3:09 PM CDT Narrative [facility] - 04/29/2021 4:34 PM CDT Non Reactive - Antibodies to Hepatitis C virus (HCV) were not detected, result does not exclude early acute HCV infection. Sho Chung MD LAB - CHEMISTRY OR DERABLES [facility] [address] [place] [address] from Last 3 Months or Most Recently Relevant to Health Maintenance Insurance Payer Benefit Plan / Group Subscriber ID Effective Dates Phone Address Type MEDICAID [employer] [place] AETNA BETTER HEALTH [facility] MEDICAID [id number] 06/21/2023-Pre sent [address] [place] [address] Medicaid Managed Care [place] MEDICAID - [facility] COMMUNITY PLAN C/COMMUNIT Y PLAN MEDICAID [id number] Effective for all dates [address] [place] [address] Medicaid Managed Care MEDICAID - OUT OF STATE [place] [id number] Effective for all dates [address] [address] [place] [address] Medicaid MEDICAID - OUT OF STATE [place] [id number] Effective for all dates [address] [address] [place] [address] Medicaid MEDICAID - OUT OF STATE [place] [id number] Effective for all dates [address] [address] [place] [address] Medicaid MEDICAID - OUT OF STATE [place] [id number] Effective for [place] [address] Medicaid MEDICAID - OUT OF [facility] MEDICAID - [place] [id number] Effective for [place] [address] Medicaid MEDICAID - OUT OF STATE MEDICAID [facility] PUBLIC AID [id number] Effective for all dates [address] [address] [place] [address] Medicaid [employer] OF [facility] MEDICAID [id number] Effective for all dates [phone] ATTN CLAIMS DEPARTMENT [address] [address] Medicaid Managed Care [employer] [facility] MEDICAID [id number] Effective for all dates [phone] ATTN CLAIMS DEPARTMENT 1 [facility], [address] [address] Medicaid Managed Care MEDICAID - OUT OF STATE [place] [id number] 07/21/2018-Pre sent [address] [address] [place] [address] Medicaid MEDICAID - OUT OF STATE [place] - [place] [id number] Effective for [place] [address] Medicaid MEDICAID - OUT OF STATE MED[place]ID - [place] [id number] Effective for all dates [address] [address] [place] [address] Medicaid MEDICAID - OUT OF STATE MED[place] [id number] Effective for all dates [address] [address] [place] [address] Medicaid MEDICAID - OUT OF STATE MED[place] - [place] [id number] Effective for all dates [address] [address] [place] [address] Medicaid MEDICAID - OUT OF STATE MEDICAID [facility] PUBLIC AID [id number] Effective for all dates [address] [address] [place] [address] Medicaid [employer] [id number] Effective for all dates [address] [address] [place] [address] Medicaid Managed Care MEDICAID - OUT OF STATE MED[place]ID - [place] [id number] Effective for all dates [address] [address] [place] [address] Medicaid [employer] Personal/Family Other [address] [place] [address] [employer] Personal/Family Other [address] [place] [address] [employer] Personal/Family Other [address] [place] [address] [employer] Personal/Family Other [address] [place] [address] [employer] Personal/Family Other [address] [place] [address] [employer] Personal/Family Other [address] [place] [address] [employer] Personal/Family Other [address] [place] [address] [employer] Personal/Family Other [address] [place] [address] [employer] LISBETH[employer] Personal/Family Other [address] [place] [address] [employer] MILMICHEL[employer] Personal/Family Other [address] [place] [address] [employer] Personal/Family Other [address] [address] [employer]HEL[employer] Personal/Family Other [address] [address] JULIANA BOATENG Personal/Family Other [address] [place] [address] Advance Directives * Full Code (Latest Code Status on File) Date Activated Date Inactivated Comments 06/08/2018 4:22 AM 06/15/2018 9:06 AM * Full Code Date Activated Date Inactivated Comments 02/28/2018 5:54 AM 03/09/2018 3:41 PM Care Teams Repairer Handtools Relationship Specialty Start Date End Date Robinson Rivera MD PCP - General Pediatrics 04/08/19 Delores Rivera MD 06/10/18 Nirali Cordero LCSW Outpatient Security Control Room Officer 05/27/21
== END 2024-10-15 14:45 | disposition home or self-care (01) ==
PROVIDERS: Emergency Provider Nurse Practitioner
DX: J10.1 Influenza due to other identified influenza virus with other respiratory manifestations (principal); R04.2 Hemoptysis; F17.290 Nicotine dependence, other tobacco product, uncomplicated; J45.909 Unspecified asthma, uncomplicated
CPT/HCPCS: 71046; 99213; G0463

== ENCOUNTER 2024-12-19 19:01 | Emergency (ER) | payer OTHER, SELFPAY ==
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
--- OUTSIDE RECORDS SUMMARY | 2024-12-19 19:03 | XMS_ITS | Clinical Summary ---
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 DCFS and community development coordinator Assessment & Plan (05/11/2017 3:02 PM CDT): [...] Encounters Date Type Department Care Team Description 12/03/2024 Results Follow-Up [facility] - Gastroenterology - [place] [address] [place] [address] Payal Gonzalez RN Pathology Surgical 11/15/2024 11:00 AM CDT - 11/15/2024 11:30 AM CDT [facility] 1 [facility] [place] [address] Ok Marie MD EGD-ANTRAL BIOPSY R/O H. PYLORI 11/15/2024 10:59 AM CDT Anesthesia Event [facility] Gi Lab Periop 1 [facility] [place] [address] Ramiro Conroy APRN, SHAYNA 11/15/2024 10:50 AM CDT Ancillary Procedure [facility] Gi Lab Main 1 [place] [address] Ok Marie MD 11/15/2024 10:08 AM CDT - 11/15/2024 11:47 AM CDT Hospital Encounter [facility] GI Lab Preop/Pacu II 1 [facility] [place] [address] Ok Marie MD Discharge Disposition: Discharged to home or Selfcare 11/15/2024 Travel 11/04/2024 Travel 10/31/2024 11:00 AM CDT Office Visit [facility] Gastroenterology [facility] [address] [place] [address] Ok Marie MD Upper abdominal pain (Primary Dx) Discharge Disposition: Discharged to home or Selfcare 10/31/2024 Travel 10/14/2024 Nurse Triage [facility] [place] [address] Berenice Weems APRN, HOME HEALTH ASSISTANT Rectal Bleeding from Last 3 Months Immunizations Immunization Administration [...] Sexually Active Control Partners Comments Yes Implant Male Comments Unknown Sex and Gender Information Value Date Recorded Sex Assigned at Female 03/29/2018 3:15 PM CDT Legal Sex Female 8:55 PM CDT Gender Identity Female 03/29/2018 3:15 PM CDT Sexual Orientation Straight 03/29/2018 3: 15 PM CDT Last Filed Vital Signs Vital Sign Reading Time Taken Comments Blood Pressure 106/67 11/15/2024 11:40 AM CDT Pulse 53 11/15/2024 11:40 AM CDT Temperature 36 C (96.8 F) 11/15/2024 11:40 AM CDT Respiratory Rate 18 11/15/2024 11:40 AM CDT Oxygen Saturation 100% 11/15/2024 11:40 AM CDT Inhaled Oxygen Concentration - - Weight 43.5 kg (96 lb) 11/04/2024 11:00 AM CDT Height 157.5 cm (5' 2 ) 11/04/2024 11:00 AM CDT Body Mass Index 17.56 11/04/2024 11:00 AM CDT Plan of Treatment Upcoming Encounters Date Type Department Care Team (Late st Contact Info) Description 12/26/2024 11:00 AM CDT Procedure Visit [facility] - [place] [address] [place] [address] Reza Sears MD [address] [address] Health Maintenance Due Date Last Done Comments Meningococcal B Immunization (1 of 2 - Standard) 2018 Pneumococcal Immunization Combined (1 of 2 - PCV) 2021 02/17/2003, 2002, 2002 Pap Smear 2023 SARS-COV-2 Immunization (25 season) 2024 05/31/2022, 05/21/2021, 04/29/2021 Influenza Immunization (Season Ended) 2025 05/24/2023, 05/31/2022, 05/21/2021, Additional history exists DTaP/Tdap/Td Immunization (8 - Td or Tdap) [...] Ready to change Department associated with goal: [facility] Steps to achieve [...] Procedure Name Priority Date/Time Associated Diagnosis Comments PATHOLOGY SURGICAL Routine 11/15/2024 11:08 AM CDT ND ESOPHAGOGASTRODUODENOSCOP Y TRANSORAL DIAGNOSTIC 11/15/2024 11:03 AM CDT EGD-ANTRAL BIOPSY R/O H. PYLORI Special Needs Dx: upper abdominal pain, bipolar 1, GERD, hx drug abuse-only marijuana now, needs POC urine HCG ND EGD FLEXIBLE TRANSNASAL D X W/COLLJ SPEC BR/WA 11/15/2024 11:03 AM CDT EGD-ANTRAL BIOPSY R/O H. PYLORI Special Needs Dx: upper abdominal pain, bipolar 1, GERD, hx drug abuse-only marijuana now, needs POC urine HCG GI LAB IMAGING - EGD Routine 11/15/2024 10:46 AM CDT POCT URINE HCG () STAT 11/15 10:20 AM CDT HEPATITIS C ANTIBODY Routine 10/03/2018 from Last 3 Months or Most Recently Relevant to Health Maintenance Results * Pathology Surgical (11/15/2024 11:08 AM CDT) Case Report Surgical Pathology Report Case: [id number] Authorizing Provider: Ok Marie MD Collected: 11/15/2024 11:08 AM Ordering Location: [facility] Received: 11/15/2024 12:[address] [facility] Gi Lab Main Pathologist: Theresa Stock MD PhD Specimen: Stomach, ANTRAL BIOPSY R/O H. PYLORI 11/18/2024 9:06 AM CDT [facility] FINAL DIAGNOSIS Antrum, rule out H. pylori, biopsy: - Gastric mucosa with focal mild chronic inflammation - Negative for acute inflammation or H. pylori by H&E stain 11/18/2024 9:[address] [facility] 0906 CDT Pre-Operative Diagnosis UPPER ABDOMINAL PAIN 11/18/2024 9:06 AM CDT [facility] Gross Description A. ANTRAL BIOPSY R/O H. PYLORI The specimen presents in a single formalin container for gross and microscopic examination, labeled with the patient's name, Guillermina Isaacs, and designated as antral biopsy, rule out H. pylori. The specimen consists of a single light [place] tissue measuring 0.2 cm in greatest dimension. All submitted cassette A1. Total time of fixation is 58 hours, 38 minutes. KS/sb 11/18/2024 9:[address] [facility] Microscopic Description Microscopic examination was performed which supports the final diagnosis. All control tissues stained appropriately. 11/18/2024 9:[address] [facility] Tissue STOMACH STRUCTURE / Unknown 11/15/2024 11:08 AM CDT 11/15/2024 12:06 PM CDT Ok Marie MD PATHOLOGY/CYTOLOGY ORDERA BLES Final Result [facility] [address] [place] [address] * GI LAB IMAGING - EGD (11/15/2024 10:46 AM CDT) Ok Marie MD IMG DIAGNOSTIC ORDERABLES Final Result * POCT Urine HCG () (11/15/2024 10:20 AM CDT) POC URINE Negative POC URINE CONTROL Vacuum Cleaner Mechanic Pass Urine 11/15/2024 10:2 0 AM CDT Ok Marie MD POINT OF CARE TESTING (DUYEN DUNHAM) Final Result * HEPATITIS C ANTIBODY (10/03/2018) Blood specimen (specimen) Roxann Fulton APRN, CNP CHEMISTRY ORDERABLES Fi nal Result from Last 3 Months or Most Recently Relevant to Health Maintenance Insurance MEDICAID [employer] Care Teams Solid Waste Facility Supervisor Relationship Specialty Start Date End Date Provider, None [place] PCP - General 10/31/24 Sid Bingham MD [address] [address] Consulting Physician Colon and Rectal Surgery 06/29/23 Berenice Weems APRN, [place] [address] [place] [address] Nurse Practitioner Advanced Practice Nurse 05/01/23
--- OUTSIDE RECORDS SUMMARY | 2024-12-19 19:03 | XMS_ITS | Encounter Summary ---
Author Organization [facility] Healthcare Address [address] [place] [address] Care Team Providers Care Shoe Cementer Name Role Phone Robinson Rivera MD Primary Care Provider + Robinson Rivera MD Unavailable [phone] Robinson Rivera MD Unavailable [phone] Raegan Parra Unavailable Unavailable Jennifer Alfrod DO Unavailable [phone] Encounter Details Date Type Department Care Team (Late st Contact Info) Description 12/18/2024 Telephone [facility] [address] [place] [address] Jennifer Alford DO [address] [place] [address] Social History Tobacco Use Types Packs/Day Years Used Date Smoking Tobacco: Former Cigarettes 0.1 12.2 2 - 10/2023 Vaping 2020 - 10/2023 Passive Smoke Exposure: Never Smokeless Tobacco: Never [facility] Utilities Answer Date Recorded In the past 12 months has th e electric, gas, oil, or water company [...] week 05/02/2024 How often do you attend formerly [facility] or mandaeism services? Never 05/02/2024 Do you belong to any clubs o r organizations such as muslim groups, unions, fraternal or athletic groups, or [...] Date Recorded PHQ-2 Total Score 0 05/02/2024 [facility] - Occupational Stress Questionnaire Answer Date [...] place to sleep or slept in a custodial (including now)? No 11/23/2023 [place] Depression Scale Answer Date Recorded [place] Depression Scale Total 9 06/14/2024 The thought [...] time in the past 12 m [facility], were you homeless or living in a custodial (including now)? No 05/02/2024 Personal Safety Answer Date Recorded Have you ever been in or are you currently in a harmful physical or emotional relationship or is someone making you feel afraid or unsafe? 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 Appointment scheduled for next week to discuss other control options. * Telephone Encounter - Jennifer Alford DO - 12/18/2024 11:28 AM CDT Recommend she take ibuprofen 600 mg every 6 hours as this can help lighten her bleeding. She can make an appointment to discuss other options for contraception. * Telephone Encounter - Griselda Blank LPN - 12/18/2024 10:02 AM CDT Patient had nexplanon inserted PP in Apr/May. Has been having irregular bleeding occasionally but this is her first HEAVY cycle since delivery. Started yesterday afternoon. Filling pad and changing every hour. Terrible cramping that makes her feel like she can vomit. Does have some lightheadedness and visual changes at time. Recommend if she is feeling dizzy, lightheaded and feels like she is going to pass out she needs togo to ER. Not changing pads more often than every hour. [facility] * Telephone Encounter - Toshia Cabrera MA - 12/18/2024 9:49 AM CDT Pt called with c/o having a heavy bleeding for a month. She is going through a pad and hour and pt states its just pouring out of her before she can get another pad on it just flows out. She got a nexplanon last April and has had irregular cycles since but this is heaviest.PT wanted to know what Dr. Alford suggested please advise [id number]#[phone] documented in this encounter Plan of Treatment Not on file documented as of this encounter Visit Diagnoses Not on filedocumented in this encounter Care Teams Shoe Cementer Relationship Specialty Start Date End Date Robinson Rivera MD PCP - General 04/06/22 Robinson Rivera MD Pediatrics 04/06/22 Robinson Rivera MD 08/29/18 Raegan Parra 02/28/18 Jennifer Alford DO [address] [place] [address] Consulting Physician Obstetrics and Gynecology 05/04/24 documented as of this encounter
--- OUTSIDE RECORDS SUMMARY | 2024-12-19 19:03 | XMS_ITS | Clinical Summary ---
Author Organization [facility] [employer] Address [address] [facility] [place] [address] Care Team Providers Care Aircraft Servicer Name Role Phone Delores Rivera MD Unavailable [phone] Robinson Rivera MD Primary Care Provider + Nirali Cordero LCSW Unavailable Unavailabl e Source Comments [facility],non-owned Affiliates and Associated Physician Practices is amultiple site organization consisting of ambulatory clinics and hospital sitesin [place], [place], [place] and [place]. This disclosure is being madepursuant to the Care Everywhere program and may not contain all information available regarding this patient. Last updated 18.[facility] [employer] Allergies Active Allergy Reactions Criticality Noted Date Comments Sulfamethoxazole W-Trimethoprim Urticaria Medium 02/18 Cefuroxime Urticaria Medium 05/03/2016 Shellfish Allergy Urticaria Medium 02/28/2018 Sulfamethoxazole Urticaria Medium 04/29/2021 Tramadol Urticaria Medium 02/28/2018 Trimethoprim Urticaria Medium 12/25/2018 Medications * This document contains information received from the source organization and may not represent a complete record from that organization. * Be aware that medications may not be up to date on this document. Alwaysverify current medications with the patient. acyclovir (ZOVIRAX) 400 MG tablet Take 400 mg by mouth 2 times daily Active Vit-Fe Fumarate-FA ( VITAMINS) 28-0.8 MG TABS Take 1 tablet by mouth once daily 1 Active naloxone HCl (NARCAN) 4 MG/0.1ML nasal spray [place] 1 (one) spray into the nose as needed (May repeat every 2 min in alternating nostrils until emergency medical help arrives for overdose) 2 device 1 Active Additional Information Patient not taking.Reported on 05/27/2021 plus iron (NATATAB) 29-1 MG tablet Take 1 (one) tablet by mouth once daily 30 tablet 11 1 Active albuterol HFA (PROVENTIL;VENT HELIO;PROAIR) 108 (90 Base) MCG/ACT inhaler Inhale 2 (two) puffs by mouth every 6 hours as needed for Shortness of Breath or Wheezing 8 g 4 1 Active pyridoxine (VITAMIN B-6) 25 MG tablet Take 2 (two) tablets by mouth 3 times daily 90 tablet 2 1 Active Additional Information Patient not taking.Reported on 05/27/2021 doxylamine (UNISOM) 25 MG tablet Take 1 (one) tablet by mouth at bedtime 30 tablet 2 1 Active Additional Information Patient not taking.Reported on 05/27/2021 ondansetron, disintegrating, (ZOFRAN ODT) 4 MG tablet Take 1 (one) tablet by mouth every 6 hours as needed for Nausea/Vomiting Allow tablet to dissolve on the tongue 60 tablet 1 1 Active Additional Information Patient not taking.Reported on [...] applied in the morning. 28 patch 3 1 Active Additional Information Patient not taking.Reported on 06/24/2021 nicotine polacrilex (COMMIT) 2 MGIndications:N icotine Dependence Take 1 (one) Each by mouth as needed Dissolve slowly in mouth over 20-30 minutes; occasionally move lozenge from one side of mouth to the other until completely dissolved. Minimize swallowing; do not chew or swallow. MAX: 20 lozenges/day Reasons: Nicotine Addiction 108 Each 1 Active fluticasone-nory meterol (ADVAIR/WIXELA) 250-50 MCG/DOSE inhalerIndicati ons:Asthma Inhale 1 (one) puff by mouth 2 times daily Reasons: Asthma 60 Each 1 Active Active Problems Problem Noted Date Diagnosed [...] struggles with addiction and lost custody of Astrid a few years back Assessment & Plan (05/11/2021 12:23 PM CDT): She has been in a high risk social situation for quite a few years. She has in a rehab facility involuntarily while < 18 for a while where she was sober. She is now living with her mother, who had lost custody when Astrid was around 17 or so. Marijuana use 05/11/2021 Supervision of high-risk of young prim igravida 04/29/2021 Overview (06/24/2021): [facility] [place], Care Everywhere. PNL: B+/I/-/-, [...] try to obtain HPV immunization status Immunizations Immunization Administration Dates Next Due K2 [employer] primary monoval ent 12+ yr 0.3mL Purple cap 05/21/2021,04/29/2021 DTAP, HISTORIC VACCINE 04/17/2007 DTaP VACCINE IM (6wk-6yrs) 07/16/2003,,2002,09/19 HEP A PEDS 2 DOSE 09/03/2004 HEP B VACCINE, PED/ADOL 02/17/2003,2002, HIB VACCINE 10/23/2003, 3,2002,09/19 Hep A Peds 3 Dose 01/05/2006 Human Papilloma Virus [place] lent Vaccine 03/22/2018,07/31/2015,05/26/2015 INFLUENZA VACCINE, QUADR. (F LUZONE; FLULAVAL; FLUARIX; AFLURIA QUADRIVALENT; 6MO+), 0.5 ML (IIV4) 05/21/2021,05/13/2019,06/06/2018,05/26 MENINGOCOCCAL ACWY (MCV4P) VAC IM 11/21/2013 MENINGOCOCCAL ACWY MENVEO 07/19/2018 MMR 03/26/2008,07/16/2003 PNEUMOCOCCAL PCV7 CONJ, PEDS [...] drink = 0.6 oz pur e alcohol) Comments No Sex and Gender Information Value Date Recorded Sex Assigned at Not on file Legal Sex Female 3:13 AM CDT Gender Identity Not on file Sexual Orientation [...] Health Maintenance Due Date Last Done Comments PAP SMEAR 2002 PNEUMOCOCCAL VACCINE (1 of 1 - PPSV23) 2008 02/17/2003, 2002, 2002 MENINGOCOCCAL (Group B) VACC INE SHARED DECISION-MAKING (1 of 2 - Standard) 2018 CHLAMYDIA/GONORRHEA SCREENING 06/24/2022, 03/23/2021, 08/17/2018, Additional history exists DTAP/TDAP/TD VACCINES (7 - T d or Tdap) 11/22/2023 11/21/2013, 04/17/2007, 07/16/2003, Additional history exists COVID-19 VACCINE (3 - 2023-2 5 season) 2024 05/21/2021, 04/29/2021 DEPRESSION SCREENING 08/21/2024 INFLUENZA VACCINE (Season Ended) 2025 05/21/2021, 05/13/2019, 06/06/2018, Additional history exists ZOSTER VACCINE (1 of 2) 2052 HEPATITIS B VACCINE Completed 02/17/2003, 2002, 2002 HIB VACCINE Completed 10/23/2003, 01/21, 2002, Additional history exists HPV VACCINE Completed 03/22/2018, 07/21, 05/26/2015 MENINGOCOCCAL GROUPS A/C/Y/W VACCINE Completed 07/19/2018, 11/21/2013 HEPATITIS C SCREENING Completed 04/29/2021, 018 HIV SCREENING Completed 04/29/2021, 0810/2020, 07/19/2018, Additional history exists Procedures Procedure Name Priority Date/Time Associated Diagnosis Comments CHLAMYDIA + GC AMPLIFIED PROBE Routine 06/24/2021 1:23 PM CDT Gonorrhea affecting in second trimester HEPATITIS C ANTIBODY Routine 04/29/2021 2:18 PM CDT Supervision of high-risk of young primigravida HIV-1 HIV-2 ANTIBODY + HIV P24 AG PANEL Routine 04/29/2021 2:18 PM CDT Supervision of high-risk of young primigravida from Last 3 Months or Most Recently Relevant to Health Maintenance Results * CHLAMYDIA + GC AMPLIFIED PROBE (STL) (06/24/2021 1:23 PM CDT) Pathologist [facility] Chlamydia Amplified Probe Negative Negative 06/25/2021 2:47 AM CDT [facility] GC Amplified Probe Negative Negative 06/25/2021 2:47 AM CDT [facility] Microbiology URINE / Unknown Collection / Unknown 06/24/2021 1:23 PM CDT 06/24/2021 2:16 PM CDT Narrative [facility] - 06/25/2021 2:47 AM CDT Results based on detection/no detection of ribosomal RNA by amplified method. Blanca Rodrigues APRN-[facility] - MICROBIOLOGY OR DERABLES Final Result [facility] [address] [place] [address], [facility] [phone] * HIV-1 HIV-2 ANTIBODY + HIV P24 AG PANEL (04/29/2021 2:18 PM CDT) Pathologist [facility] HIV1/2 Ab + P24 Ag Non Reactive Non Reactive 04/29/2021 4:34 PM CDT [facility] Blood BLOOD SPECIMEN / Unknown Venipuncture / Unknown 04/29/2021 2:18 PM CDT 04/29/2021 3:10 PM CDT Narrative [facility] - 04/29/2021 4:34 PM CDT No Laboratory evidence of HIV infection. Sho Chung MD LAB - CHEMISTRY ORDERABLES Final Result [facility] [address] [place] [address] * HEPATITIS C ANTIBODY (04/29/2021 2:18 PM CDT) [facility] HCV Antibody Screen Non Reactive Non Reactive 04/29/2021 4:34 PM CDT [facility] Blood BLOOD SPECIMEN / Unknown Venipuncture / Unknown 04/29/2021 2:18 PM CDT 04/29/2021 3:09 PM CDT Narrative [facility] - 04/29/2021 4:34 PM CDT Non Reactive - Antibodies to Hepatitis C virus (HCV) were not detected, result does not exclude early acute HCV infection. Sho Chung MD LAB - CHEMISTRY ORDERABLES Final Result Performing Organization Address [facility] Co de Phone Number [facility] [address] [place] [address] from Last 3 Months or Most Recently Relevant to Health Maintenance Insurance MEDICAID - [facility] MEDICAID [facility] MEDICAID - OUT OF STATE [employer] MEDICAID - OUT OF STATE MEDICAID - OUT OF [facility] MEDICAID - OUT OF [facility] MEDICAID - OUT OF [facility] MEDICAID - OUT OF STATE MEDICAID - OUT OF STATE MEDICAID - OUT OF [facility] MEDICAID - OUT OF [facility] MEDICAID - OUT OF [facility] MEDICAID - OUT OF STATE MEDICAID - OUT OF STATE MEDICAID - OUT OF STATE Advance Directives * Full Code (Latest Code Status on File) Date Activated Date Inactivated Comments 06/08/2018 4:22 AM 06/15/2018 9:06 AM * Full Code Date Activated Date Inactivated Comments 02/28/2018 5:54 AM 03/09/2018 3:41 PM Care Teams Aircraft Servicer Relationship Specialty Start Date End Date Robinson Rivera MD PCP - General Pediatrics 04/08/19 Delores Rivera MD 06/10/18 Nirali Cordero LCSW Outpatient Billet Cutter 05/27/21
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
--- OUTSIDE RECORDS SUMMARY | 2024-12-19 19:03 | XMS_ITS | Encounter Summary ---
Author Organization [facility] Healthcare Address [address] [place] [address] Care Team Providers Care Vine Fruit Farming Supervisor Name Role Phone Robinson Rivera MD Primary Care Provider + Robinson Rivera MD Unavailable [phone] Robinson Rivera MD Unavailable [phone] Raegan Parra Unavailable Unavailable Jennifer Alford DO Unavailable [phone] Encounter Details Date Type Department Care Team (Late st Contact Info) Description 05/17/2024 Documentation [facility] Warm Hand Off Program [address] [place], [place] [phone] Blanca Farr Social History Tobacco Use Types Packs/Day Years Used Date Smoking Tobacco: Former Cigarettes 0.1 12.2 2 012 - 10/2023 Vaping 2020 - 10/2023 Passive Smoke Exposure: Never Smokeless Tobacco: Never [facility] Utilities Answer Date Recorded In the past [...] How often do you attend chur or restorationist services? Never 05/02/2024 Do you belong to any clubs o r organizations such as jew groups, unions, fraternal or athletic groups, or [...] Date Recorded PHQ-2 Total Score 0 05/02/2024 [facility] Occupat ional Health - Occupational Stress [...] in a assisted (including now)? No 11/23/2023 Edroy Depression Scale Answer Date Recorded Edroy Depression Scale Total 1 05/02/2024 The thought of harming myself has occurred to me . Never 05/02/2024 PHQ-9 Answer Date Recorded PHQ-9 Total Score [...] in the past [address] 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 Gender Identity Not on file Sexual Orientation Not on file Occupation Industry Job Start Date Job End Date None Not on file Not on file Not on file documented as of this encounter Plan of Treatment Not on file documented as of this encounter Visit Diagnoses Not on filedocumented in this encounter Care Teams Vine Fruit Farming Supervisor Relationship Specialty Start Date End Date Robinson Rivera MD PCP - General 04/06/22 Robinson Rivera MD Pediatrics 04/06/22 Robinson Rivera MD 08/29/18 Raegan Parra 02/28/18 Jennifer Alford DO [address] [place] [address] Consulting Physician Obstetrics and Gynecology 05/04/24 documented as of this encounter
--- OUTSIDE RECORDS SUMMARY | 2024-12-19 19:03 | XMS_ITS | Encounter Summary ---
Author Organization [facility] Address [address] [place] [address] Phone Care Team Providers Care Billing Clinician Name Role Phone Robinson Rivera MD Primary Care Provider + Sid Bingham MD Unavailable Berenice Weems APRN, MANAGER COMMISSION Primary Care Pro vider Berenice Weems APRN, MANAGER COMMISSION Unavailable Berenice Weems APRN, MANAGER COMMISSION Primary Care Pro vider Provider, None Primary Care Provider Unavailabl e Reason for Visit * Reason Comments Medication Refill Encounter Details Date Type Department Care Team (Late st Contact Info) Description 06/16/2023 Refill [facility] - Primary Care - [place] [address] [place] [address] Huma Barragan APRN, GRETA [address] [place] [place] [address] Medication Refill Social History Tobacco Use Types Packs/Day Years Used Date Smoking Tobacco: Former Cigarettes 1 5 Smokeless Tobacco: Never Alcohol Use Standard Drinks/Week Comments No 0 (1 standard drink = 0.6 oz pur e alcohol) PHQ-2 Answer Date Recorded Total Score - Questions 1-9 0 0810/2020 Education Answer Date Recorded What is the [...] Description 12/26/2024 11:00 AM CDT Procedure Visit [facility] - Gastroenterology - [place] [address] [place] [address] Reza Sears MD [address] [address] documented as of this encounter Goals Goal Patient Goal Type Associated Problems Recent Progress Patient-Stated? Author [facility] Ugo Al PSYD Note: Goal/Objective: Decrease angry outbursts. Anticipated Time Frame for Goal Completion: 8 weeks Goal Reviewed with: patient Readiness to change: Ready to change Department associated with goal: [facility] Steps to [...] documented as of this encounter Care Teams Billing Clinician Relationship Specialty Start Date End Date Robinson Rivera MD [address] [place] [address] PCP - General Pediatrics 03/23/21 07/16/23 Berenice Weems APRN, MANAGER COMMISSION [address] [place] [address] PCP - General Primary Care 07/21/23 07/24/24 Berenice Weems APRN, MANAGER COMMISSION [address] [place] [address] PCP - General Primary Care 08/19/24 10/30/24 Provider, None [place] PCP - General 10/31/24 Sid [facility] [address] [facility] [address] [address] Consulting Physician Colon and Rectal Surgery 06/29/23 Berenice Weems APRN, MANAGER COMMISSION [address] [place] [address] Nurse Practitioner Advanced Practice Nurse 05/01/23 documented as of this encounter
[2024-12-19 19:22] VITALS: BP 108/69; PULSE 78; RESP 16; TEMP 36.9; O2SAT 100
[2024-12-19 19:44] LABS: BEDSIDEPREGUCG Negative (Negative)
--- NOTE | 2024-12-19 19:51 | ED_ITS ---
HPI - Female Genitourinary General Chief complaint: Vaginal Bleeding Stated complaint: Vaginal Issue Time Seen by Provider: 12/19/24 19:40 Source: patient and RN notes reviewed Mode of arrival: ambulatory Limitations: no limitations History of Present Illness HPI Narrative: 24-year-old female presents [facility] complaining of vaginal bleeding for 2 months. Patient recently restarted control had the Nexplanon implanted. She said initially when she started her new control that her periods are regular and she was having no issues. Since the beginning of October she says she has had constant vaginal bleeding that started light and sometimes body. Since then has continued to get worse and over the last week she has noticed that she is passing large clots. She said today that she is bleeding through at least 1 pad an hour. Patient says her vaginal bleeding is dark red in appearance. Patient said she was at the emergency department earlier and left without being seen because of the wait time. Patient's OBGYN recommended that she was seen in the emergency department. Patient says she has had a history of severe vaginal bleeding has been hospitalized in the past for it. Patient said she required a blood transfusion when she was . Patient reports that sometimes she feels dizzy or lightheaded and sometimes short of breath with exertion. Patient denies any abdominal pain fevers, body aches, chills, or pelvic pain. Patient reports low back pain. Patient says she really recently delivered a child in April. Related Data Home Medications ?Medication ?Instructions ?Recorded ?Confirmed ?Last Taken ?Type ibuprofen 600 mg tablet 600 mg PO QID 12/19/24 Unknown History Allergies Allergy/AdvReac Type Severity Reaction Status Date / Time shellfish derived Allergy Severe Swelling Verified 12/19/24 19:42 of Lip/Tongue/Throat sulfamethoxazole (From Allergy Severe Swelling Verified 12/19/24 19:42 Bactrim) of Lip/Tongue/Throat tramadol Allergy Severe Swelling Verified 12/19/24 19:42 of Lip/Tongue/Throat trazodone Allergy Severe Swelling Verified 12/19/24 19:42 of Lip/Tongue/Throat trimethoprim (From Bactrim) Allergy Severe Swelling Verified 12/19/24 19:42 of Lip/Tongue/Throat Review of Systems Review of Systems: CONSTITUTIONAL: Denies fever, chills, or sweats. EYES: Denies visual changes, redness, or discharge. ENT: Denies rhinorrhea, congestion, sore throat, or otalgia. CARDIOVASCULAR: Denies chest pain, palpitations, or edema. Positive for dizziness and lightheadedness. RESPIRATORY: Denies cough or dyspnea at rest. Positive for dyspnea with exertion GASTROINTESTINAL: Denies abdominal pain, nausea, vomiting, or diarrhea. GENITOURINARY: Denies dysuria or hematuria. Positive for vaginal bleeding. SKIN: Denies rash or itching. MUSCULOSKELETAL: Denies back pain, joint pain, or myalgia. NEUROLOGIC: Denies headache, numbness, or weakness. PSYCHIATRIC: Denies anxiety or depression. All other systems reviewed are negative, except as documented in HPI. [facility] Past Medical History Medical History Asthma Anxiety and depression Surgical History Surgical History History of tonsillectomy Family History Family History Mother Family history non-contributory Social History Social History Smoking status: Current every day smoker Tobacco type: e-cigarettes/vaping Gender identity (if verbalized by the patient): Female Spiritual care concerns: No Comments At the time of my signature, I reviewed and agree with the nursing past medical, surgical, social, and family history. There is no relevant family history pertinent to the patient complaint. Exam Narrative: GENERAL: This is a well-nourished, well-developed adult, in no apparent distress. They are non ill-appearing, nontoxic appearing. Patient appears pale. HEAD: normocephalic, atraumatic. EYES: Sclera clear/white. Conjunctiva normal. Vision is grossly intact. Extraocular movements intact EARS: External ears normal, auditory canals clear and without drainage, TMs normal without perforation. Hearing grossly intact. NOSE: External nose normal with no obvious nasal discharge, nasal turbinates without redness, no rhinorrhea. THROAT: Mucous membranes moist and pink, posterior pharynx clear, without erythema or swelling. Uvula midline. NECK: Normal range of motion CARDIOVASCULAR: Regular rate and rhythm RESPIRATORY: Respiratory rate normal, respiratory effort nonlabored, no respiratory distress GASTROINTESTINAL: Abdomen soft, non-tender, nondistended. Bowel sounds are active. No hepato-splenomegaly, or palpable masses. No guarding. GENITOURINARY: Declined pelvic exam SKIN: warm, Dry, intact with no suspicious lesions or rash, good texture and turgor. Capillary refill less than 2 seconds. NEURO: awake, alert, and oriented to person, place and time. There were no obvious focal neurologic abnormalities. EXTREMITIES: No joint tenderness, effusion, or edema noted. BACK: Nontender without deformity. Course Course Emergency Course: Portions of this record may have been created with voice recognition software Level of Care: Express Care Visit Vital Signs Vital signs: Vital Signs Temperature 98.4 F 12/19/24 19:22 Pulse Rate 78 12/19/24 19:22 Respiratory Rate 16 12/19/24 19:22 Blood Pressure 108/69 12/19/24 19:22 Pulse Oximetry 100 12/19/24 19:22 Oxygen Delivery Room Air 12/19/24 19:22 Temperature 98.4 F 12/19/24 19:22 Pulse Rate 78 12/19/24 19:22 Respiratory Rate 16 12/19/24 19:22 Blood Pressure 108/69 12/19/24 19:22 Pulse Oximetry 100 12/19/24 19:22 Oxygen Delivery Room Air 12/19/24 19:22 Reviewed Transfer Transfered to: [facility] Transportation: Other (Private vehicle) Transfer rationale: Vaginal bleeding, bleeding through 1 pad an hour and passing large clots. Patient requires a higher level of care. Accepting physician: Dr. Rome MDM - Female Genitourinary MDM Narrative Medical decision making narrative: Patient's urine test is negative. Given patient's symptoms it is rec ommended the patient seek a higher level care at the emergency department for her vaginal bleeding. Patient's mucous membranes are pain in her capillary refill is less than 2 seconds. Patient is slightly pale in color. Patient is hemodynamically stable. Patient is stable to go by private vehicle. Patient declined to go by ambulance. Called report [facility] to [facility] where the patient requested to go to. Spoke with Jie SAN who is aware that this patient in Dr. Rome has accepted the patient for transfer her to [facility]. Patient advised to go immediately to the emergency department and remain NPO. Differential Diagnosis Differential diagnosis: Likely dysmenorrhea and other (Vaginal bleeding, miscarriage) Lab Data Attestation: I reviewed the patient's lab results. Labs: Lab Results 12/19/24 Range/Units 19:20 POC Urine HCG, Qual Negative (Negative) Critical Care Time Critical Care Time Critical Care Time: No Discharge Plan Discharge Clinical Impression: Abnormal vaginal bleeding Patient Disposition: Acute Care Hospital Condition: Stable Patient Language: Turkmen Prescriptions: No Action ibuprofen 600 mg tablet 600 mg PO QID Follow-up/Referrals: PHYSICIAN,[employer] [Primary Care Provider] - Time of Disposition: 20:01
== END 2024-12-19 19:55 | disposition short-term general hospital (02) ==
DX: N93.9 Abnormal uterine and vaginal bleeding, unspecified (principal); F17.290 Nicotine dependence, other tobacco product, uncomplicated; J45.909 Unspecified asthma, uncomplicated
CPT/HCPCS: 81025; 99212; G0463

== ENCOUNTER 2025-07-02 09:12 | Emergency (ER) | payer OTHER, SELFPAY ==
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
[2025-07-02 09:17] VITALS: BP 115/69; PULSE 77; RESP 16; TEMP 37.2; O2SAT 100
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
--- OUTSIDE RECORDS SUMMARY | 2025-07-02 09:54 | XMS_ITS ---
Care Plan - [facility] Created on: July 02, 2025 SOUZA ASTRID Go : 2000 Sex: Female Author Organization [facility] Address [address] [place] [address] Phone Care Team Providers Care Class A Lineman Name Role Phone Unavailable Unavailable Unavailable
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
--- OUTSIDE RECORDS SUMMARY | 2025-07-02 09:55 | XMS_ITS | Clinical Summary ---
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 Name Role Phone Unavailable Unavailable Unavailable Reason for Visit and Chief Complaint visit for: screening for STD, gynecologic annual exam - The Chief Complaint is: New LEAF TINNER--Annual exam Problems Includes: Problems addressed during this encounter and other active Problems Current Visit Onset Date Resolved Date Provider Karey hernandez Status Opioid Abuse 10/03/2018 SONALI Hernandez BALAJI Active Last Documented On 10/03/2018 12:06PM ; [facility] Note: Unchanged Asthma 10/03/2018 SONALI Hernandez BALAJI Active Last Documented On 9 12:08PM ; [facility] History of Esophagitis Chron ic Reflux 10/03/2018 SONALI SWEENEY RN BALAJI Active Last Documented On 9 12:06PM ; [facility] Note: Unchanged Schizoid Personality Disorder 10/03/2018 SONALI SWEENEY RN BALAJI Active Last Documented On 9 12:09PM ; [facility] Scoliosis 10/03/2018 SONALI SWEENEY RN BALAJI Active Last Documented On 9 12:08PM ; [facility] Tobacco Abuse 10/03/2018 SONALI SWEENEY RN BALAJI Active Last Documented On 9 12:06PM ; [facility] Note: Unchanged Plan of Treatment - Clinical summary provided to patient - Last Documented On 10/03/2018 12:12PM ; [facility] PT TO CALL WITH ANY CHANGE IN STATUS ALL QUESTIONS ANSWERED WITH UNDERSTANDING VERBALIZED BY PT. - Last Documented On 10/03/2018 12:12PM ; [facility] RTC 1 YEAR - Last Documented On 10/03/2018 12:12PM ; [facility] Instructions to patient Instructions for patient : B reast Self Exam discussed and technique reviewed Last Documented On 9 10:48AM ; [facility] Use a condom during sexual i ntercourse Last Documented On 9 10:48AM ; [facility] Instructed to call if excess antolin bleeding or abdominal/pelvic pain Last Documented On 9 10:48AM ; [facility] Recommend diet and exercise at least 30 min three times per week Last Documented On 9 10:48AM ; [facility] Education and Decision Aids were provided during visit for: Discussed smoking and drug u se Last Documented On 9 10:48AM ; [facility] Patient education RE: lizzie g signals associated with hormonal contraceptive use including abdominal, chest, or leg pain, headaches or visual disturbances Last Documented On 9 10:48AM ; [facility] Patient Education: Daily lori cium and vitamin D Last Documented On 9 10:48AM ; [facility] Bacterial Vaginosis Informat ion Sheet Given Last Documented On 9 12:05PM ; [facility] Assessments Includes: Assessments from this encounter Findings - NORMAL FEMALE EXAM - Last Documented On 10/03/2018 12:12PM ; [facility] - Opioid abuse - Last Documented On 10/03/2018 12:12PM ; [facility] - Tobacco Abuse - Last Documented On 10/03/2018 12:12PM ; [facility] Instructions Includes: Instructions from this encounter Instructions to patient Instructions for patient : B reast Self Exam discussed and technique reviewed Last Documented On 9 10:48AM ; [facility] Use a condom during sexual i ntercourse Last Documented On 9 10:48AM ; [facility] Instructed to call if excess antolin bleeding or abdominal/pelvic pain Last Documented On 9 10:48AM ; [facility] Recommend diet and exercise at least 30 min three times per week Last Documented On 9 10:48AM ; [facility] Education and Decision Aids were provided during visit for: Discussed smoking and drug u se Last Documented On 9 10:48AM ; [facility] Patient education RE: lizzie hart signals associated with hormonal contraceptive use including abdominal, chest, or leg pain, headaches or visual disturbances Last Documented On 9 10:48AM ; [facility] Patient Education: Daily lori cium and vitamin D Last Documented On 9 10:48AM ; [facility] Bacterial Vaginosis Informat ion Sheet Given Last Documented On 9 12:05PM ; [facility] Medical Equipment - Implanted Devices Includes: Current Devices No Medical Equipment Recorded Medications Includes: Medications discussed during this encounter and other current Medications Discontinued / Stopped on this date on 10/03/2018 HydrOXYzine HCl 10MG Oral Tablet Provider : Diagnosis: Last Documented On 9 10:26AM By MANI PAUL ; [facility] SEROquel 100MG Oral Tablet Provider: Diagnosis: Last Documented On 9 10:25AM By MANI PAUL ; [facility] New / Renewed during this visit SONALI SWEENEY RN BALAJI on 10/03/2018 MetroNIDAZOLE 500MG Oral Tablet Provider: SONALI SWEENEY RN BALAJI 7 day supply: 14 tablet, 0 refills Diagnosis: Acute vaginitis One tablet twice a day ONE T WICE DAILY WITH FOOD NO ETOH Pharmacy: [facility] - [address] [facility], [phone] - Last Documented On 9 12:16PM By SONALI CARSON ; [facility] MedroxyPROGESTERone Acetate 150MG/ML Intramuscular Suspension Provider: SONALI SWEENEY RN BALAJI 84 day supply: 1 vial, 3 refills Diagnosis: Encounter for other contraceptive management as directed DISPENSE AND PT TO RETURN TO [facility] Pharmacy: [facility] - [address] [facility], [phone] - Last Documented On 9 12:16PM By SONALI CARSON ; [facility] Current Medications (continue as prescribed) Zoloft 100MG Oral Tablet 10/03/2018 Provider: Diagnosis: Last Documented On 9 10:23AM By MANI PAUL ; [facility] SEROquel 300MG Oral Tablet 10/03/2018 Provider: Diagnosis: Last Documented On 9 10:26AM By MANI PAUL ; [facility] HydrOXYzine HCl 50MG Oral Tablet 10/03/2018 Provider : Diagnosis: TID Last Documented On 9 10:26AM By MANI PAUL ; [facility] Past Medications on file Acyclovir 400MG Oral Tablet 11/14/2018 - 10/10/2019 Pr ovider: SONALI SCOTT Diagnosis: One tablet twice a day Last Documented On 9 12:29PM By SONALI CARSON ; [facility] Naproxen 500MG Oral Tablet 10/16/2018 - 10/21/2018 Provider: SONALI SCOTT Diagnosis: Encounter for padilla rveillance of other contraceptives One tablet twice a day USE A S DIRECTED W/FOOD DON'T EXCEED 2 IN 24 HOURS Last Documented On 9 11:13AM By SONALI CARSON ; [facility] Medications Administered Includes: Administered Medications from this encounter No Administered Medications Recorded Vital Signs Includes: Vital Signs from this encounter Vital Name 10/03/2018 10:39A Blood Pressure Sitting L 100/66 BP Cuff Size Regular Height (in) 64 Weight (lb) 116 Body Mass Index (kg/m2) 19.9 BMI Percentile (percentile) 41 Body Surface Area (m2) 1.6 Last Documented: On 10/03/2018 10:41A M ; [facility] Results Includes: Results discussed during this encounter No Results Recorded For Specified Dates History of Present Illness Includes: History of Present Illness from this encounter HPI ASTRID SOUZA is a 18 year old female. - Medication list reviewed. 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 10/03/2018 Last Documented On 9 12:12PM ; [facility] Using heroin 10/03/2018 Last Documented On 9 12:12PM ; [facility] Activities 10/03/2018 Last Documented On 9 12:12PM ; [facility] Education history 10/03/2018 Last Documented On 9 12:12PM ; [facility] Not a smoker 10/03/2018 Last Documented On 9 12:12PM ; [facility] Personal history 10/03/2018 Last Documented On 9 12:12PM ; [facility] Single 10/03/2018 Last Documented On 9 12:12PM ; [facility] Alcohol use: 2 drinks or less per day no ne 10/03/2018 Last Documented On 9 12:12PM ; [facility] Smoking status : Former smoker 9 Last Documented On 9 12:12PM ; [facility] Procedures and Surgical History Includes: Procedures from this encounter Procedures Code Diagnosis Performing Provider Service L ocation Service Date education and instructions Last Documented On 9 10:48AM ; [facility] explanation of plan Last Documented On 9 10:48AM ; [facility] evaluation of contraceptive history perf ormed Last Documented On 9 10:48AM ; [facility] education about contraceptio n performed instructed current implant 3 yrs ago Last Documented On 9 12:11PM ; [facility] reporting of contraception complications performed Last Documented On 9 10:48AM ; [facility] Discussed Contraception Pt. requests DMP A start at time of Nexplanon removal Last Documented On 9 12:09PM ; [facility] Urged Exercise and Diet , exercise at le ast 30 min three times per week Last Documented On 9 10:48AM ; [facility] Clinical summary provided to patient Last Documented On 9 10:48AM ; [facility] test was performed negative [id number] Last Documented On 9 12:03PM ; [facility] a vaginal wet mount smear for kristin wa s negative Last Documented On 9 10:48AM ; [facility] a vaginal wet mount smear for Trichomona s vaginalis was negative Last Documented On 9 10:48AM ; [facility] a vaginal wet mount smear for clue cells was positive Last Documented On 9 11:20AM ; [facility] test was negative Last Documented On 9 10:48AM ; [facility] Negative WBC [id number] Last Documented On 9 10:48AM ; [facility] Surgical History Last Updated Surgical / procedural history tonsillect tiesha ~spina bifida repair 10/03/2018 Last Documented On 9 12:12PM ; [facility] Medical History Includes: Medical History addressed during this encounter Description Last Updated Contraception: Nexplano 07/04/15 10/03/2018 Last Documented On 9 12:12PM ; [facility] Treated for chlamydia 019 with Azithromycin ~scoliosis ~spina bifida ~drug overdose 07/08 fentanyl 10/03/2018 Last Documented On 9 12:12PM ; [facility] History of asthma 10/03/2018 Last Documented On 9 12:12PM ; [facility] History of chronic reflux esophagitis Last Documented On 9 12:12PM ; [facility] PRIMARY CARE PROVIDER : Miguel 9 Last Documented On 9 12:12PM ; [facility] LMP: 10/02/2012 10/03/2018 Last Documented On 9 12:12PM ; [facility] Aborta 1 10/03/2018 Last Documented On 9 12:12PM ; [facility] 1 10/03/2018 Last Documented On 9 12:12PM ; [facility] Para 0 10/03/2018 Last Documented On 9 12:12PM ; [facility] Family History Includes: Family History addressed during this encounter Description Last Updated Family history of diabetes mellitus fath er 10/03/2018 Last Documented On 9 12:12PM ; [facility] Family history of malignant female breas t neoplasm paternal grandma 10/03/2018 Last Documented On 9 12:12PM ; [facility] No family history of malignant neoplasm of large intestine 10/03/2018 Last Documented On 9 12:12PM ; [facility] No family history of malignant neoplasm of the ovary 10/03/2018 Last Documented On 9 12:12PM ; [facility] Review of Systems Includes: Review of Systems from this encounter Systemic: Not tiring easily. No fever, no chills, no unusual bleeding, no post coital bleeding, and no recent weight change. No pain. Head: No headache. Neck: No neck pain and no swollen glands in the neck. Eyes: No vision problems. Breasts: No breast symptoms, no breast lump, no nipple discharge, no pain in breast, and patient performs self breast exams. Cardiovascular: No chest pain or discomfort, no palpitations, and no varicosities. Pulmonary: No pulmonary symptoms, no dyspnea, no rapid breathing, no cough, and no wheezing. Gastrointestinal: No heartburn and no indigestion. No nausea, no vomiting, no abdominal pain, and no melena. No diarrhea and no constipation. Genitourinary: No hematuria, no change in urinary frequency, and no incomplete emptying of bladder. No dysuria. No genital lesion, no pain during intercourse, no vaginal dryness, and no menorrhagia. No dysmenorrhea. No nonmenstrual bleeding. No vaginal discharge. Endocrine: No polydipsia, no temperature intolerance, and libido has not changed. Hematologic: No blood clotting problems. Musculoskeletal: No muscle aches and no localized joint pain. Neurological: No dizziness. Psychological: No anxiety, no depression, no sleep disturbances, and a desire to continue living. Skin: No pruritus. No skin lesions and no rash. Mental Status Includes: Mental Status from this encounter Description Oriented to time, place, and person No anxiety A desire to continue living Functional Status Includes: Functional Status from this encounter No Functional Status Recorded Physical Exam Includes: Physical Exam from this encounter Allergies Includes: Active Allergies Substance Type Reaction Onset Date Resolved Date Statu s Shellfish Allergy 10/03/2018 Active Last Documented On 9 10:27AM ; [facility] Penicillin V Potassium Allergy 10/03/2018 Active Last Documented On 9 10:27AM ; [facility] [place] Allergy 10/03/2018 Active Last Documented On 9 10:27AM ; [facility] Bactrim Allergy 10/03/2018 Active Last Documented On 9 10:27AM ; [facility] Encounters Encounter Provider Location Date Check-In Time Check-Out Time Diagnosis NEW LEAF TINNER EXAM SONALI SWEENEY RN [facility] 

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
--- OUTSIDE RECORDS SUMMARY | 2025-07-02 09:55 | XMS_ITS | Clinical Summary ---
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 Problems Includes: Problems addressed during this encounter and other active Problems All Visits Onset Date Resolved Date Provider Condition S tatus Opioid Abuse 10/03/2018 SONALI Hernandez BALAJI Active Last Documented On 10/03/2018 12:06PM ; [facility] Note: Unchanged Asthma 10/03/2018 SONALI Hernandez BALAJI Active Last Documented On 9 12:08PM ; [facility] History of Esophagitis Chron ic Reflux 10/03/2018 SONALI SWEENEY RN [facility] Active Last Documented On 9 12:06PM ; [facility] Note: Unchanged Schizoid Personality Disorder 10/03/2018 SONALI SWEENEY RN [facility] Active Last Documented On 9 12:09PM ; [facility] Scoliosis 10/03/2018 SONALI SWEENEY RN [facility] Active Last Documented On 9 12:08PM ; [facility] Tobacco Abuse 10/03/2018 SONALI SWEENEY RN [facility] Active Last Documented On 9 12:06PM ; [facility] Note: Unchanged Plan of Treatment No Plan of Treatment Recorded Assessments Includes: Assessments from this encounter No Assessments Recorded Medical Equipment - Implanted Devices Includes: Current Devices No Medical Equipment Recorded Medications Includes: Medications discussed during this encounter and other current Medications Current Medications (continue as prescribed) Zoloft 100MG Oral Tablet 10/03/2018 Provider: Diagnosis: Last Documented On 9 10:23AM By MANI PAUL ; [facility] SEROquel 300MG Oral Tablet 10/03/2018 Provider: Diagnosis: Last Documented On 9 10:26AM By MANI PAUL ; [facility] HydrOXYzine HCl 50MG Oral Tablet 10/03/2018 Provider : Diagnosis: TID Last Documented On 9 10:26AM By MANI PAUL ; [facility] Medications Administered Includes: Administered Medications from this encounter No Administered Medications Recorded Results Includes: Results discussed during this encounter No Results Recorded For Specified Dates History of Present Illness Includes: History of Present Illness from this encounter No History of Present Illness Recorded Social History No Social History Recorded - Smoking Status Unknown Medical History Includes: Medical History addressed during this encounter No Medical History Recorded Family History Includes: Family History addressed during this encounter No Family History Recorded Review of Systems Includes: Review of Systems from this encounter No Review of Systems Recorded Mental Status Includes: Mental Status from this encounter No Mental Status Recorded Functional Status Includes: Functional Status from this encounter No Functional Status Recorded Physical Exam Includes: Physical Exam from this encounter No Physical Exam Recorded Allergies Includes: Active Allergies Substance Type Reaction Onset Date Resolved Date Statu s Shellfish Allergy 10/03/2018 Active Last Documented On 9 10:27AM ; [facility] Penicillin V Potassium Allergy 10/03/2018 Active Last Documented On 9 10:27AM ; [facility] GRASSES Allergy 10/03/2018 Active Last Documented On 9 10:27AM ; [facility] Bactrim Allergy 10/03/2018 Active Last Documented On 9 10:27AM ; [facility] Clinical Notes Includes: Clinical Notes from this encounter No Clinical Notes Recorded
--- OUTSIDE RECORDS SUMMARY | 2025-07-02 09:55 | XMS_ITS | Encounter Summary ---
Author Organization [facility] Address [address] [place] [address] Care Team Providers Care Referral Management Liaison Name Role Phone Robinson Rivera MD Primary Care Provider + Robinson Rivera MD Unavailable [phone] Robinson Rivera MD Unavailable [phone] Raegan Parra Unavailable Unavailable Jennifer Alford DO Unavailable [phone] No, Physician Primary Care Provider [phone] Encounter Details Date Type Department Care Team (Late st Contact Info) Description 05/17/2024 Documentation [facility] Warm Hand Off Program [address] [place], [place] [phone] Blanca Farr Social History Tobacco Use Types Packs/Day Years Used Date Smoking Tobacco: Former Cigarettes 0.1 12.2 2 012 - 10/2023 Vaping 2020 - 10/2023 Passive Smoke Exposure: Never Smokeless Tobacco: Never [facility] Utilities Answer Date Recorded In the [...] or ex-partner? No 05/02/2024 Social Connection and Isolation Panel Answer Date Recorded In a typical week, how many times do you talk on the phone with family, friends, or neighbors? More than three times a week 05/02/2024 How often do you get togethe r with friends or relatives? Once a week 05/02/2024 How often do you attend chur or jewish services? Never 05/02/2024 Do you belong to any clubs o r organizations such as amish groups, unions, fraternal or athletic groups, or [...] Date Recorded PHQ-2 Total Score 0 05/02/2024 [facility] of Occupat ional Health - Occupational Stress [...] place to sleep or slept in a mcc (including now)? No 11/23/2023 [place] Depression Scale Answer Date Recorded [place] Depression Scale Total 1 05/02/2024 The thought [...] any time in the past 12 [facility], were you homeless or living in a mcc (including now)? No 05/02/2024 Personal Safety Answer Date Recorded Have you ever been in or are you currently in a harmful physical or emotional relationship or is someone making you feel afraid or unsafe? 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 Gender Identity Not on file Sexual Orientation Not on file Occupation Industry Job Start Date Job End Date None Not on file Not on file Not on file documented as of this encounter Plan of Treatment Not on file documented as of this encounter Visit Diagnoses Not on filedocumented in this encounter Care Teams Referral Management Liaison Relationship Specialty Start Date End Date Robinson Rivera MD PCP - General 04/06/22 12/19/24 No, Physician PCP - General 12/20/24 Robinson Rivera MD Pediatrics 04/06/22 Robinson Rivera MD 08/29/18 Raegan Parra 02/28/18 Jennifer Alford DO [address] [place] [address] Consulting Physician Obstetrics and Gynecology 05/04/24 documented as of this encounter
--- OUTSIDE RECORDS SUMMARY | 2025-07-02 09:55 | XMS_ITS | Clinical Summary ---
Author Organization [facility] Address [address] [place] [address] Phone Care Team Providers Care Department Clerk Name Role Phone Unavailable Unavailable Unavailable Reason for Visit and Chief Complaint * PHONE CALL Problems Includes: Problems addressed during this encounter and other active Problems Current Visit Onset Date Resolved Date Provider Conditio n Status History of Esophagitis Chronic Reflux 10/03/2018 SONALI SWEENEY RN [facility] Active Last Documented On 10/03/2018 12:06PM ; [facility] Note: Unchanged Past Visits Onset Date Resolved Date Provider Condition Status Opioid Abuse 10/03/2018 SONALI Hernandez BALAJI SCOTT Active Last Documented On 10/03/2018 12:06PM ; [facility] Note: Unchanged Asthma 10/03/2018 SONALI SCOTT Active Last Documented On 9 12:08PM ; [facility] Schizoid Personality Disorder 10/03/2018 SONALI SWEENEY RN [facility] Active Last Documented On 9 12:09PM ; [facility] Scoliosis 10/03/2018 SONALI SWEENEY RN [facility] Active Last Documented On 9 12:08PM ; [facility] Tobacco Abuse 10/03/2018 SONALI SWEENEY RN [facility] Active Last Documented On 9 12:06PM ; [facility] Note: Unchanged Plan of Treatment No Plan of Treatment Recorded Assessments Includes: Assessments from this encounter No Assessments Recorded Medical Equipment - Implanted Devices Includes: Current Devices No Medical Equipment Recorded Medications Includes: Medications discussed during this encounter and other current Medications New / Renewed during this visit SONALI SWEENEY RN BALAJI on 11/14/2018 Acyclovir 400MG Oral Tablet Provider: SONALI MAGALLON P 30 day supply: 60 tablet, 10 refills Diagnosis: One tablet twice a day Pharmacy: [facility] [address], [phone] - Last Documented On 9 12:29PM By SONALI CARSON ; [facility] Current Medications (continue as prescribed) Zoloft 100MG Oral Tablet 10/03/2018 Provider: Diagnosis: Last Documented On 9 10:23AM By MANI PAUL ; [facility] SEROquel 300MG Oral Tablet 10/03/2018 Provider: Diagnosis: Last Documented On 9 10:26AM By MANI PAUL ; [facility] HydrOXYzine HCl 50MG Oral Tablet 10/03/2018 Provider : Diagnosis: TID Last Documented On 9 10:26AM By MANI PAUL ; [facility] Past Medications on file Naproxen 500MG Oral Tablet 10/16/2018 - 10/21/2018 Provider: SONALI SWEENEY RN [facility] Diagnosis: Encounter for padilla rveillance of other contraceptives One tablet twice a day USE A S DIRECTED W/FOOD DON'T EXCEED 2 IN 24 HOURS Last Documented On 9 11:13AM By SONALI CARSON ; [facility] MetroNIDAZOLE 500MG Oral Tablet 10/03/2018 - 10/10/2018 Provider: SONALI SHUKLA Diagnosis: Acute vaginitis One tablet twice a day ONE T WICE DAILY WITH FOOD NO ETOH Last Documented On 9 12:16PM By SONALI CARSON ; [facility] MedroxyPROGESTERone Acetate 150MG/ML Intramuscular Suspension 10/03/2018 - 09/04/2019 Provider: SONALI SHUKLA Diagnosis: Encounter for ot her contraceptive management as directed DISPENSE AND PT TO RETURN TO OFICE FOR ADMINISTRATION Last Documented On 9 12:16PM By SONALI CARSON ; [facility] Medications Administered Includes: Administered Medications from this encounter No Administered Medications Recorded Results Includes: Results discussed during this encounter No Results Recorded For Specified Dates History of Present Illness Includes: History of Present Illness from this encounter No History of Present Illness Recorded Social History No Social History Recorded - Smoking Status Unknown Procedures and Surgical History Surgical History Last Updated Surgical / procedural history tonsillect tiesha ~spina bifida repair 10/03/2018 Last Documented On 9 11:05AM ; [facility] Medical History Includes: Medical History addressed during this encounter Description Last Updated Contraception: Depo injection given at [facility] on 10/05/2018 10/16/2018 Last Documented On 9 11:05AM ; [facility] Treated for chlamydia 019 with Azithromycin ~scoliosis ~spina bifida ~drug overdose 07/08 fentanyl 10/03/2018 Last Documented On 9 11:05AM ; [facility] History of asthma 10/03/2018 Last Documented On 9 11:05AM ; [facility] History of chronic reflux esophagitis Last Documented On 9 11:05AM ; [facility] PRIMARY CARE PROVIDER : Miguel 9 Last Documented On 9 11:05AM ; [facility] LMP: 10/02/2012 10/03/2018 Last Documented On 9 11:05AM ; [facility] Aborta 1 10/03/2018 Last Documented On 9 11:05AM ; [facility] 1 10/03/2018 Last Documented On 9 11:05AM ; [facility] Para 0 10/03/2018 Last Documented On 9 11:05AM ; [facility] Family History Includes: Family History addressed during this encounter Description Last Updated Family history of diabetes mellitus fath er 10/03/2018 Last Documented On 9 11:05AM ; [facility] Family history of malignant female breas t neoplasm paternal grandma 10/03/2018 Last Documented On 9 11:05AM ; [facility] No family history of malignant neoplasm of large intestine 10/03/2018 Last Documented On 9 11:05AM ; [facility] No family history of malignant neoplasm of the ovary 10/03/2018 Last Documented On 9 11:05AM ; [facility] Review of Systems Includes: Review of [...] Active Last Documented On 9 10:27AM ; [facility] Penicillin V Potassium Allergy 10/03/2018 Active Last Documented On 9 10:27AM ; [facility] Allergy 10/03/2018 Active Last Documented On 9 10:27AM ; [facility] Bactrim Allergy 10/03/2018 Active Last Documented On 9 10:27AM ; [facility] Encounters Encounter Provider Location Date Check-In Time Check-Out Time Diagnosis * PHONE CALL SONALI SWEENEY RN NP [facility] DEPUTY JUVENILE OFFICER 9 11:05AM 11:59PM Clinical Notes Includes: Clinical Notes from this encounter No Clinical Notes Recorded
--- OUTSIDE RECORDS SUMMARY | 2025-07-02 09:55 | XMS_ITS | Encounter Summary ---
Author Organization [facility] Address [address] [place] [address] Phone Care Team Providers Care Civil Litigation Attorney Name Role Phone Robinson Rivera MD Primary Care Provider + Sid Bingham MD Unavailable Berenice Weems APRN, FINISHED STOCK INSPECTOR Primary Care Pro vider Berenice Weems APRN, FINISHED STOCK INSPECTOR Unavailable Berenice Weems APRN, FINISHED STOCK INSPECTOR Primary Care Pro vider Provider, None Primary Care Provider Unavailabl e Reason for Visit * Reason Comments Medication Refill Encounter Details Date Type Department Care Team (Late st Contact Info) Description 06/16/2023 Refill [facility] - Primary Care - [address] [place] [address] Huma Barragan APRN, GRETA [address] [place] [address] Medication Refill Social History Tobacco Use [...] to change Department associated with goal: [facility] Steps to achieve goal: [...] documented as of this encounter Care Teams Civil Litigation Attorney Relationship Specialty Start Date End Date Robinson Rivera MD [address] [place] [address] PCP - General Pediatrics 03/23/21 07/16/23 Berenice Weems APRN, FINISHED STOCK INSPECTOR [address] [place] [address] PCP - General Primary Care 07/21/23 07/24/24 Berenice Weems APRN, FINISHED STOCK INSPECTOR [address] [place] [address] PCP - General Primary Care 08/19/24 10/30/24 Provider, None [place] PCP - General 10/31/24 Sid Bingham MD [address] [address] Consulting Physician Colon and Rectal Surgery 06/29/23 Berenice Weems APRN, FINISHED STOCK INSPECTOR #[address] [facility] [place] [address] Nurse Practitioner Advanced Practice Nurse 05/01/23 documented as of this encounter
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
--- OUTSIDE RECORDS SUMMARY | 2025-07-02 09:56 | XMS_ITS | Clinical Summary ---
Author Organization [facility] Address [address] [place] [address] Care Team Providers Care Hair Or Beauty Salon Manager Name Role Phone Delores Rivera MD Unavailable [phone] Robinson Rivera MD Primary Care Provider + Nirali Cordero LCSW Unavailable Unavailabl e Source Comments [facility],non-owned Affiliates and Associated Physician Practices is amultiple site organization consisting of ambulatory clinics and hospital sitesin [place], [place], [place] and [place]. This disclosure is being madepursuant to the Care Everywhere program and may not contain all information available regarding this patient. Last updated 18.[facility] Allergies Active Allergy Reactions Criticality Noted Date [...] be up to date on this document. Always verify current medications with the patient. acyclovir (ZOVIRAX) 400 MG tablet Take 400 mg by mouth 2 times daily Active Vit-Fe Fumarate-FA ( VITAMINS) 28-0.8 MG TABS Take 1 tablet by mouth once daily 1 Active naloxone HCl (NARCAN) 4 MG/0.1ML nasal spray [place] 1 (one) spray into the nose as [...] 20 lozenges/day Reasons: Nicotine Addiction 108 Each Active fluticasone-nory meterol (ADVAIR/WIXELA) 250-50 MCG/DOSE inhalerIndicati [...] locally next week given her proximity from [facility]. Order placed Group B Streptococcus urinar y [...] status Immunizations Immunization Administration Dates Next Due 100du.tv primary monoval ent 12+ yr 0.3mL Purple [...] 1:04 PM CDT Height 159.1 cm (5' 2.64) 10/14/2019 10:[address] Body Mass Index - - Plan of Treatment Health Maintenance Due Date Last Done Comments PNEUMOCOCCAL VACCINE (1 of 1 - PPSV23, PCV20, or PCV21) 2008 02/17/2003, 2002, 2002 MENINGOCOCCAL (Group B) VACC INE SHARED DECISION-MAKING (1 of 2 - Standard) 2018 CHLAMYDIA/GONORRHEA SCREENING 06/24/2022, 08/17/2018, 06/08/2018, Additional history exists PAP SMEAR 2023 DTAP/TDAP/TD VACCINES (7 - T d or Tdap) 11/22/2023 11/21/2013, 04/17/2007, 07/16/2003, Additional history exists DEPRESSION SCREENING 08/21/2024 COVID-19 VACCINE (3 - 2024-2 6 season) 2025 05/21/2021, 04/29/2021 INFLUENZA VACCINE (#1) 2025 , 05/13/2019, 06/06/2018, Additional history exists ZOSTER VACCINE (1 of 2) 2052 HEPATITIS B VACCINE Completed 02/17/2003, 2002, 2002 HIB VACCINE Completed 10/23/2003, 01/21, 2002, Additional history exists HPV VACCINE Completed 03/22/2018, 07/21, 05/26/2015 MENINGOCOCCAL GROUPS A/C/Y/W VACCINE Completed 07/19/2018, 11/21/2013 HEPATITIS C SCREENING Completed 04/29/2021 HIV SCREENING Completed 04/29/2021, 10/2020, 07/19/2018, Additional history exists Procedures Procedure Name [...] PROBE (STL) (06/24/2021 1:23 PM CDT) Pathologist [facility] Chlamydia Amplified Probe Negative Negative 06/25/2021 2:47 AM CDT [facility]CRO[facility] GC Amplified Probe Negative Negative 06/25/2021 2:47 AM CDT [facility] Microbiology URINE / Unknown Collection / Unknown 06/24/2021 1:23 PM CDT 06/24/2021 2:16 PM CDT Narrative [facility] - 06/25/2021 2:47 AM CDT Results based on detection/no detection of ribosomal RNA by amplified method. us Blanca Rodrigues MANUFACTURING PROJECT ENGINEER-EMPLOYMENT EDUCATIONAL COORD LAB - MICROBIOLOGY OR DERABLES Final Result [facility] [address] [place] [address], [facility] [phone] * HIV-1 HIV-2 ANTIBODY + HIV P24 [...] CHEMISTRY ORDERABLES Final Result Performing Organization Address City/[facility]/ZIP Co de Phone Number [facility] [address] [place] [address] * HEPATITIS C ANTIBODY (04/29/2021 2:18 PM CDT) [facility] HCV Antibody Screen Non Reactive Non Reactive [...] CHEMISTRY ORDERABLES Final Result Performing Organization Address [facility] Co de Phone Number [facility] [address] [place] [phone] from Last 3 Months or Most Recently Relevant to Health Maintenance Insurance [place] MEDICAID - [facility] MEDICAID [facility] MEDICAID - OUT OF STATE [facility] MEDICAID - OUT OF STATE MEDICAID - OUT OF [facility] MED[facility] - OUT OF [facility] MEDICAID - OUT OF STATE MEDICAID - OUT OF [facility] MEDICAID - OUT OF STATE MEDICAID - OUT OF STATE MEDICAID - OUT OF STATE MEDICAID - OUT OF STATE MEDICAID - OUT OF [facility] MEDICAID - OUT OF STATE MEDICAID - OUT OF STATE Advance Directives * Full Code (Latest Code Status on File) Date Activated Date Inactivated Comments 06/08/2018 4:22 AM 06/15/2018 9:06 AM * Full Code Date Activated Date Inactivated Comments 02/28/2018 5:54 AM 03/09/2018 3:41 PM Care Teams Hair Or Beauty Salon Manager Relationship Specialty Start Date End Date Robinson Rivera MD PCP - General Pediatrics 04/08/19 Delores Rivera MD 06/10/18 Nirali Cordero LCSW Outpatient [facility] 05/27/21
--- OUTSIDE RECORDS SUMMARY | 2025-07-02 09:56 | XMS_ITS ---
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 Name Role Phone Unavailable Unavailable Unavailable Problems Includes: Active, inactive, and resolved Problems All Visits Onset Date Resolved Date Provider Condition S tatus Opioid Abuse 10/03/2018 SONALI Hernandez BALAJI Active Last Documented On 10/03/2018 12:06PM ; [facility] Note: Unchanged Asthma 10/03/2018 SONALI Hernandez BALAJI Active Last Documented On 9 12:08PM ; [facility] History of Esophagitis Chron ic Reflux 10/03/2018 SONALI SWEENEY RN BALAJI Active Last Documented On 9 12:06PM ; [facility] Note: Unchanged Schizoid Personality Disorder 10/03/2018 SONALI SWEENEY RN BALAJI Active Last Documented On 9 12:09PM ; [facility] Scoliosis 10/03/2018 SONALI SWEENEY RN BALAJI Active Last Documented On 9 12:08PM ; [facility] Tobacco Abuse 10/03/2018 SONALI SWEENEY RN BALAJI Active Last Documented On 9 12:06PM ; [facility] Note: Unchanged Plan of Treatment Findings Encounter Date Ordered Clinical summary pro vided to patient PROCEDURE OFFICE with SONALI SWEENEY RN BALAJI 10/16/2018 Last Documented On 9 11:12AM ; [facility] Ordered Clinical summary pro vided to patient 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 EXAM with SONALI SWEENEY RN BALAJI 10/03/2018 Last Documented On 9 12:12PM ; [facility] Instructions to patient Instructions for patient : B reast Self Exam discussed and technique reviewed Last Documented On 9 10:48AM ; [facility] Use a condom during sexual i ntercourse Last Documented On 9 10:48AM ; [facility] Instructed to call if excess antolin bleeding or abdominal/pelvic pain Last Documented On 9 10:48AM ; [facility] Recommend diet and exercise at least 30 min three times per week Last Documented On 9 10:48AM ; [facility] Education and Decision Aids were provided during visit for: Discussed smoking and drug u se Last Documented On 9 10:48AM ; [facility] Patient education RE: lizzie hart signals associated with hormonal contraceptive use including abdominal, chest, or leg pain, headaches or visual disturbances Last Documented On 9 10:48AM ; [facility] Patient Education: Daily lori cium and vitamin D Last Documented On 9 10:48AM ; [facility] Bacterial Vaginosis Informat ion Sheet Given Last Documented On 9 12:05PM ; [facility] Assessments Includes: Assessments for all patient encounters Findings Encounter Date Encounter for implantable padilla bdermal contraceptive PROCEDURE OFFICE with SONALI SWEENEY RN [facility] 10/16/2018 Last Documented On 9 11:12AM ; [facility] NORMAL FEMALE EXAM 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 EXAM with SONALI CRENSHAW RN BALAJI 10/03/2018 Last Documented On 9 12:12PM ; [facility] Opioid abuse 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 EXAM with SONALI SWEENEY RN BALAJI 10/03/2018 Last Documented On 9 12:12PM ; [facility] Tobacco Abuse 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 EXAM with SONALI SWEENEY RN BALAJI 10/03/2018 Last Documented On 9 12:12PM ; [facility] Instructions Includes: Instructions for all patient encounters Instructions to patient Instructions for patient : B reast Self Exam discussed and technique reviewed Last Documented On 9 10:48AM ; [facility] Use a condom during sexual i ntercourse Last Documented On 9 10:48AM ; [facility] Instructed to call if excess antolin bleeding or abdominal/pelvic pain Last Documented On 9 10:48AM ; [facility] Recommend diet and exercise at least 30 min three times per week Last Documented On 9 10:48AM ; [facility] Education and Decision Aids were provided during visit for: Discussed smoking and drug u se Last Documented On 9 10:48AM ; [facility] Patient education RE: tootienaomy hart signals associated with hormonal contraceptive use including abdominal, chest, or leg pain, headaches or visual disturbances Last Documented On 9 10:48AM ; [facility] Patient Education: Daily lori cium and vitamin D Last Documented On 9 10:48AM ; [facility] Bacterial Vaginosis Informat ion Sheet Given Last Documented On 9 12:05PM ; [facility] Medical Equipment - Implanted Devices Includes: Current and historical Devices No Medical Equipment Recorded Medications Includes: Current and historical Medications Current Medications (continue as prescribed) Zoloft 100MG Oral Tablet 10/03/2018 Provider: Diagnosis: Last Documented On 9 10:23AM By MANI PAUL ; [facility] SEROquel 300MG Oral Tablet 10/03/2018 Provider: Diagnosis: Last Documented On 9 10:26AM By MANI PAUL ; [facility] HydrOXYzine HCl 50MG Oral Tablet 10/03/2018 Provider : Diagnosis: TID Last Documented On 9 10:26AM By MANI PAUL ; [facility] Past Medications on file Acyclovir 400MG Oral Tablet 11/14/2018 - 10/10/2019 Pr ovider: SONALI SHUKLA BC Diagnosis: One tablet twice a day Last Documented On 9 12:29PM By SONALI CARSON ; [facility] Naproxen 500MG Oral Tablet 10/16/2018 - 10/21/2018 Provider: SONALI SHUKLA BC Diagnosis: Encounter for padilla rveillance of other contraceptives One tablet twice a day USE A S DIRECTED W/FOOD DON'T EXCEED 2 IN 24 HOURS Last Documented On 9 11:13AM By SONALI CARSON ; [facility] MetroNIDAZOLE 500MG Oral Tablet 10/03/2018 - 10/10/2018 Provider: SONALI SCOTT Diagnosis: Acute vaginitis One tablet twice a day ONE T WICE DAILY WITH FOOD NO ETOH Last Documented On 9 12:16PM By SONALI CARSON ; [facility] MedroxyPROGESTERone Acetate 150MG/ML Intramuscular Suspension 10/03/2018 - 09/04/2019 Provider: SONALI SCOTT Diagnosis: Encounter for ot her contraceptive management as directed DISPENSE AND PT TO RETURN TO [facility] Last Documented On 9 12:16PM By SONALI CARSON ; [facility] Nexplanon 68MG Subcutaneous Implant 10/03/2018 - 10/03 Provider: Diagnosis: Last Documented On 9 11:20AM By SONALI CARSON ; [facility] HydrOXYzine HCl 10MG Oral Tablet 10/03/2018 - 10/03/19 Provider: Diagnosis: Last Documented On 9 10:26AM By MANI PAUL ; [facility] SEROquel 100MG Oral Tablet 10/03/2018 - 10/03/2018 Pro vider: Diagnosis: Last Documented On 9 10:25AM By MANI PAUL ; [facility] MetroNIDAZOLE 500MG Oral Tablet 10/03/2018 - 10/03/2018 Provider: SONALI SHUKLA Diagnosis: Acute vaginitis One tablet twice a day ONE T WICE DAILY WITH FOOD NO ETOH Last Documented On 9 12:11PM By SONALI CARSON ; [facility] Nexplanon 68MG Subcutaneous Implant 10/03/2018 - 10/16 Provider: Diagnosis: inserted 07/04/12 07/04/15 Last Documented On 9 11:24AM By SONALI CARSON ; [facility] Medications Administered Includes: Administered Medications in patient's chart No Administered Medications Recorded Results Includes: Results from 07/02/2024 through 07/02/2025 No Results Recorded For Specified Dates History of Present Illness History of Present Illness not supported for this document type No History of Present Illness Recorded Social History Description Last Updated Activities 10/16/2018 Last Documented On 9 11:12AM ; [facility] Alcohol use: 2 drinks or less per day no ne 10/16/2018 Last Documented On 9 11:12AM ; [facility] [employer] [facility] 10/16/2018 Last Documented On 9 11:12AM ; [facility] Drug use 10/16/2018 Last Documented On 9 11:12AM ; [facility] Education history 10/16/2018 Last Documented On 9 11:12AM ; [facility] Educational level 10/16/2018 Last Documented On 9 11:12AM ; [facility] Not a smoker 10/16/2018 Last Documented On 9 11:12AM ; [facility] Parent(s) abusing drugs 10/16/2018 Last Documented On 9 11:12AM ; [facility] Personal history 10/16/2018 Last Documented On 9 11:12AM ; [facility] 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 10/16/2018 Last Documented On 9 11:12AM ; [facility] Sexually active 5 partners in the past y ear, last coitus 09/01/18 10/16/2018 Last Documented On 9 11:12AM ; [facility] Single 10/16/2018 Last Documented On 9 11:12AM ; [facility] Smoking status : Former smoker 9 Last Documented On 9 11:12AM ; [facility] Using heroin 10/16/2018 Last Documented On 9 11:12AM ; [facility] Procedures and Surgical History Surgical History Last Updated Surgical / procedural history tonsillect tiesha ~spina bifida repair 10/03/2018 Last Documented On 9 12:12PM ; [facility] Medical History Includes: Medical History in patient's chart Description Last Updated Contraception: Depo injection given at [facility] on 10/05/2018 10/16/2018 Last Documented On 9 11:12AM ; [facility] Treated for chlamydia 019 with Azithromycin ~scoliosis ~spina bifida ~drug overdose 07/08 fentanyl 10/03/2018 Last Documented On 9 12:12PM ; [facility] History of asthma 10/03/2018 Last Documented On 9 12:12PM ; [facility] History of chronic reflux esophagitis Last Documented On 9 12:12PM ; [facility] PRIMARY CARE PROVIDER : Miguel 9 Last Documented On 9 12:12PM ; [facility] LMP: 10/02/2012 10/03/2018 Last Documented On 9 12:12PM ; [facility] Aborta 1 10/03/2018 Last Documented On 9 12:12PM ; [facility] 1 10/03/2018 Last Documented On 9 12:12PM ; [facility] Para 0 10/03/2018 Last Documented On 9 12:12PM ; [facility] Family History Includes: Family History in patient's chart Description Last Updated Family history of diabetes mellitus fath er 10/03/2018 Last Documented On 9 12:12PM ; [facility] Family history of malignant female breas t neoplasm paternal grandma 10/03/2018 Last Documented On 9 12:12PM ; [facility] No family history of malignant neoplasm of large intestine 10/03/2018 Last Documented On 9 12:12PM ; [facility] No family history of malignant neoplasm of the ovary 10/03/2018 Last Documented On 9 12:12PM ; [facility] Review of Systems Review of Systems not supported for this document type No Review of Systems Recorded Mental Status No Mental Status Recorded Functional Status No Functional Status Recorded Physical Exam Physical Exam not supported for this document type No Physical Exam Recorded Allergies Includes: Active, inactive, and resolved Allergies Substance Type Reaction Onset Date Resolved Date Statu s Shellfish Allergy 10/03/2018 Active Last Documented On 9 10:27AM ; [facility] Penicillin V Potassium Allergy 10/03/2018 Active Last Documented On 9 10:27AM ; [facility] [place] Allergy 10/03/2018 Active Last Documented On 9 10:27AM ; [facility] Bactrim Allergy 10/03/2018 Active Last Documented On 9 10:27AM ; [facility] Clinical Notes Includes: Signed Clinical Notes starting from 09/09/2022 No Clinical Notes Recorded
--- OUTSIDE RECORDS SUMMARY | 2025-07-02 09:56 | XMS_ITS | Clinical Summary ---
Author Organization [facility] Address [address] [place] [address] Phone Care Team Providers Care Community Service Manager Name Role Phone Unavailable Unavailable Unavailable Reason for Visit and Chief Complaint * PHONE CALL Problems Includes: Problems addressed during this encounter and other active Problems Current Visit Onset Date Resolved Date Provider Conditio n Status History of Esophagitis Chronic Reflux 10/03/2018 SONALI SWEENEY RN BALAJI Active Last Documented On 10/03/2018 12:06PM ; [facility] Note: Unchanged Past Visits Onset Date Resolved Date Provider Condition Status Opioid Abuse 10/03/2018 SONALI Hernandez BALAJI SCOTT Active Last Documented On 10/03/2018 12:06PM ; [facility] Note: Unchanged Asthma 10/03/2018 SONALI Hernandez BALAJI SCOTT Active Last Documented On 9 12:08PM ; [facility] Schizoid Personality Disorder 10/03/2018 SONALI SWEENEY RN BALAJI Active Last Documented On 9 12:09PM ; [facility] Scoliosis 10/03/2018 SONALI SWEENEY RN BALAJI Active Last Documented On 9 12:08PM ; [facility] Tobacco Abuse 10/03/2018 SONALI SWEENEY RN BALAJI Active Last Documented On 9 12:06PM ; [facility] Note: Unchanged Plan of Treatment No Plan of Treatment Recorded Assessments Includes: Assessments from this encounter No Assessments Recorded Medical Equipment - Implanted Devices Includes: Current Devices No Medical Equipment Recorded Medications Includes: Medications discussed during this encounter and other current Medications Current Medications (continue as prescribed) Zoloft 100MG Oral Tablet 10/03/2018 Provider: Diagnosis: Last Documented On 9 10:23AM By MANI PAUL ; [facility] SEROquel 300MG Oral Tablet 10/03/2018 Provider: Diagnosis: Last Documented On 9 10:26AM By MANI PAUL ; [facility] HydrOXYzine HCl 50MG Oral Tablet 10/03/2018 Provider : Diagnosis: TID Last Documented On 9 10:26AM By MANI PAUL ; [facility] Past Medications on file Acyclovir 400MG Oral Tablet 11/14/2018 - 10/10/2019 Pr ovider: SONALI SHUKLA Diagnosis: One tablet twice a day Last Documented On 9 12:29PM By SONALI CARSON ; [facility] Naproxen 500MG Oral Tablet 10/16/2018 - 10/21/2018 Provider: SONALI SHUKLA Diagnosis: Encounter for padilla rveillance of other contraceptives One tablet twice a day USE A S DIRECTED W/FOOD DON'T EXCEED 2 IN 24 HOURS Last Documented On 9 11:13AM By SONALI CARSON ; [facility] MetroNIDAZOLE 500MG Oral Tablet 10/03/2018 - 10/10/2018 Provider: SONALI SCOTT Diagnosis: Acute vaginitis One tablet twice a day ONE T WICE DAILY WITH FOOD NO ETOH Last Documented On 9 12:16PM By SONALI CARSON ; [facility] MedroxyPROGESTERone Acetate 150MG/ML Intramuscular Suspension 10/03/2018 - 09/04/2019 Provider: SONALI SCOTT Diagnosis: Encounter for ot her contraceptive management as directed [facility] Last Documented On 9 12:16PM By SONALI CARSON ; [facility] Medications Administered Includes: Administered Medications from this [...] bifida repair 10/03/2018 Last Documented On 9 10:15AM ; [facility] Medical History Includes: Medical History addressed during this encounter Description Last Updated Contraception: Depo injection given at [facility] on 10/05/2018 10/16/2018 Last Documented On 9 10:15AM ; [facility] Treated for chlamydia 019 with Azithromycin ~scoliosis ~spina bifida ~drug overdose 07/08 fentanyl 10/03/2018 Last Documented On 9 10:15AM ; [facility] History of asthma 10/03/2018 Last Documented On 9 10:15AM ; [facility] History of chronic reflux esophagitis Last Documented On 9 10:15AM ; [facility] PRIMARY CARE PROVIDER : Miguel 9 Last Documented On 9 10:15AM ; [facility] LMP: 10/02/2012 10/03/2018 Last Documented On 9 10:15AM ; [facility] Aborta 1 10/03/2018 Last Documented On 9 10:15AM ; [facility] 1 10/03/2018 Last Documented On 9 10:15AM ; [facility] Para 0 10/03/2018 Last Documented On 9 10:15AM ; [facility] Family History Includes: Family History addressed during this encounter Description Last Updated Family history of diabetes mellitus fath er 10/03/2018 Last Documented On 9 10:15AM ; [facility] Family history of malignant female breas t neoplasm paternal grandma 10/03/2018 Last Documented On 9 10:15AM ; [facility] No family history of malignant neoplasm of large intestine 10/03/2018 Last Documented On 9 10:15AM ; [facility] No family history of malignant neoplasm of the ovary 10/03/2018 Last Documented On 9 10:15AM ; [facility] Review of Systems Includes: Review [...] Documented On 9 10:27AM ; [facility] Penicillin V Potassium Allergy 10/03/2018 Active Last Documented On 9 10:27AM ; [facility] [place] Allergy 10/03/2018 Active Last Documented On 9 10:27AM ; [facility] Bactrim Allergy 10/03/2018 Active Last Documented On 9 10:27AM ; [facility] Encounters Encounter Provider Location Date Check-In Time Check-Out Time Diagnosis * PHONE CALL SONALI SWEENEY RN [facility] 10/25/2018 10:15AM 11:59PM Clinical Notes Includes: Clinical Notes from this encounter No Clinical Notes Recorded
--- OUTSIDE RECORDS SUMMARY | 2025-07-02 10:12 | XMS_ITS | Clinical Summary ---
Author Organization [facility] Address [address] [place] [address] Phone Care Team Providers Care Buttonhole Facer Name Role Phone Unavailable Unavailable Unavailable Reason for Visit and Chief Complaint * PHONE CALL Problems Includes: Problems addressed during this encounter and other active Problems Current Visit Onset Date Resolved Date Provider Conditio n Status History of Esophagitis Chronic Reflux 10/03/2018 SONALI SWEENEY RN BALAJI Active Last Documented On 10/03/2018 12:06PM ; [facility] Note: Unchanged Past Visits Onset Date Resolved Date Provider Condition Status Opioid Abuse 10/03/2018 SONALI Hernandez BALAJI SCOTT Active Last Documented On 10/03/2018 12:06PM ; [facility] Note: Unchanged Asthma 10/03/2018 SONALI Hernandez BALAJI SCOTT Active Last Documented On 9 12:08PM ; [facility] Schizoid Personality Disorder 10/03/2018 SONALI SWEENEY RN BALAJI Active Last Documented On 9 12:09PM ; [facility] Scoliosis 10/03/2018 SONALI SWEENEY RN BALAJI Active Last Documented On 9 12:08PM ; [facility] Tobacco Abuse 10/03/2018 SONALI SWEENEY RN BALAJI Active Last Documented On 9 12:06PM ; [facility] Note: Unchanged Plan of Treatment No Plan of Treatment Recorded Assessments Includes: Assessments from this encounter No Assessments Recorded Medical Equipment - Implanted Devices Includes: Current Devices No Medical Equipment Recorded Medications Includes: Medications discussed during this encounter and other current Medications Current Medications (continue as prescribed) Zoloft 100MG Oral Tablet 10/03/2018 Provider: Diagnosis: Last Documented On 9 10:23AM By MANI PAUL ; [facility] SEROquel 300MG Oral Tablet 10/03/2018 Provider: Diagnosis: Last Documented On 9 10:26AM By MANI PAUL ; [facility] HydrOXYzine HCl 50MG Oral Tablet 10/03/2018 Provider : Diagnosis: TID Last Documented On 9 10:26AM By MANI PAUL ; [facility] Past Medications on file Acyclovir 400MG Oral Tablet 11/14/2018 - 10/10/2019 Pr ovider: SONALI SHUKLA Diagnosis: One tablet twice a day Last Documented On 9 12:29PM By SONALI CARSON ; [facility] Naproxen 500MG Oral Tablet 10/16/2018 - 10/21/2018 Provider: SONALI SHUKLA Diagnosis: Encounter for padilla rveillance of other contraceptives One tablet twice a day USE A S DIRECTED W/FOOD DON'T EXCEED 2 IN 24 HOURS Last Documented On 9 11:13AM By SONALI CARSON ; [facility] MetroNIDAZOLE 500MG Oral Tablet 10/03/2018 - 10/10/2018 Provider: SONALI SCOTT Diagnosis: Acute vaginitis One tablet twice a day ONE T WICE DAILY WITH FOOD NO ETOH Last Documented On 9 12:16PM By SONALI CARSON ; [facility] MedroxyPROGESTERone Acetate 150MG/ML Intramuscular Suspension 10/03/2018 - 09/04/2019 Provider: SONALI SCOTT Diagnosis: Encounter for ot her contraceptive management as directed [facility] Last Documented On 9 12:16PM By SONALI CARSON ; [facility] Medications Administered Includes: Administered Medications [...] 10/03/2018 Last Documented On 9 10:15AM ; [facility] Medical History Includes: Medical History addressed during this encounter Description Last Updated Contraception: Depo injection given at [facility] on 10/05/2018 10/16/2018 Last Documented On 9 10:15AM ; [facility] Treated for chlamydia 019 with Azithromycin ~scoliosis ~spina bifida ~drug overdose 07/08 fentanyl 10/03/2018 Last Documented On 9 10:15AM ; [facility] History of asthma 10/03/2018 Last Documented On 9 10:15AM ; [facility] History of chronic reflux esophagitis Last Documented On 9 10:15AM ; [facility] PRIMARY CARE PROVIDER : Miguel 9 Last Documented On 9 10:15AM ; [facility] LMP: 10/02/2012 10/03/2018 Last Documented On 9 10:15AM ; [facility] Aborta 1 10/03/2018 Last Documented On 9 10:15AM ; [facility] 1 10/03/2018 Last Documented On 9 10:15AM ; [facility] Para 0 10/03/2018 Last Documented On 9 10:15AM ; [facility] Family History Includes: Family History addressed during this encounter Description Last Updated Family history of diabetes mellitus fath er 10/03/2018 Last Documented On 9 10:15AM ; [facility] Family history of malignant female breas t neoplasm paternal grandma 10/03/2018 Last Documented On 9 10:15AM ; [facility] No family history of malignant neoplasm of large intestine 10/03/2018 Last Documented On 9 10:15AM ; [facility] No family history of malignant neoplasm of the ovary 10/03/2018 Last Documented On 9 10:15AM ; [facility] Review of Systems Includes: Review [...] Active Last Documented On 9 10:27AM ; [facility] Penicillin V Potassium Allergy 10/03/2018 Active Last Documented On 9 10:27AM ; [facility] [place] Allergy 10/03/2018 Active Last Documented On 9 10:27AM ; [facility] Bactrim Allergy 10/03/2018 Active Last Documented On 9 10:27AM ; [facility] Encounters Encounter Provider Location Date Check-In Time Check-Out Time Diagnosis * PHONE CALL SONALI SWEENEY RN [facility] 10/25/2018 10:15AM 11:59PM Clinical Notes Includes: Clinical Notes from this encounter No Clinical Notes Recorded
--- OUTSIDE RECORDS SUMMARY | 2025-07-02 10:12 | XMS_ITS ---
Care Plan - [facility] Created on: July 02, 2025 SOUZA ATSRID Go : 2000 Sex: Female Author Organization [facility] Address [address] [place] [address] Phone Care Team Providers Care Linux Support Engineer Name Role Phone Unavailable Unavailable Unavailable
--- OUTSIDE RECORDS SUMMARY | 2025-07-02 10:12 | XMS_ITS | Clinical Summary ---
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 Problems Includes: Problems addressed during this encounter and other active Problems All Visits Onset Date Resolved Date Provider Condition S tatus Opioid Abuse 10/03/2018 SONALI Hernandez BALAJI Active Last Documented On 10/03/2018 12:06PM ; [facility] Note: Unchanged Asthma 10/03/2018 SONALI Hernandez BALAJI Active Last Documented On 9 12:08PM ; [facility] History of Esophagitis Chron ic Reflux 10/03/2018 SONALI SWEENEY RN [facility] Active Last Documented On 9 12:06PM ; [facility] Note: Unchanged Schizoid Personality Disorder 10/03/2018 SONALI SWEENEY RN BALAJI Active Last Documented On 9 12:09PM ; [facility] Scoliosis 10/03/2018 SONALI SWEENEY RN [facility] Active Last Documented On 9 12:08PM ; [facility] Tobacco Abuse 10/03/2018 SONALI SWEENEY RN BALAJI Active Last Documented On 9 12:06PM ; [facility] Note: Unchanged Plan of Treatment No [...] On 9 10:23AM By MANI PAUL ; [facility] SEROquel 300MG Oral Tablet 10/03/2018 Provider: Diagnosis: Last Documented On 9 10:26AM By MANI PAUL ; [facility] HydrOXYzine HCl 50MG Oral Tablet 10/03/2018 Provider : Diagnosis: TID Last Documented On 9 10:26AM By MANI PAUL ; [facility] Medications Administered Includes: Administered Medications from this [...] Active Last Documented On 9 10:27AM ; [facility] Penicillin V Potassium Allergy 10/03/2018 Active Last Documented On 9 10:27AM ; [facility] Allergy 10/03/2018 Active Last Documented On 9 10:27AM ; [facility] Bactrim Allergy 10/03/2018 Active Last Documented On 9 10:27AM ; [facility] Clinical Notes Includes: Clinical Notes from this encounter No Clinical Notes Recorded
--- OUTSIDE RECORDS SUMMARY | 2025-07-02 10:12 | XMS_ITS ---
Author Organization [facility] Address [address] [place] [address] Phone Care Team Providers Care Margin Clerk Name Role Phone Unavailable Unavailable Unavailable Problems Includes: Active, inactive, and resolved Problems All Visits Onset Date Resolved Date Provider Condition S tatus Opioid Abuse 10/03/2018 SONALI Hernandez BALAJI Active Last Documented On 10/03/2018 12:06PM ; [facility] Note: Unchanged Asthma 10/03/2018 SONALI Hernandez BALAJI Active Last Documented On 9 12:08PM ; [facility] History of Esophagitis Chron ic Reflux 10/03/2018 SONALI SWEENEY RN BALAJI Active Last Documented On 9 12:06PM ; [facility] Note: Unchanged Schizoid Personality Disorder 10/03/2018 SONALI SWEENEY RN BALAJI Active Last Documented On 9 12:09PM ; [facility] Scoliosis 10/03/2018 SONALI SWEENEY RN BALAJI Active Last Documented On 9 12:08PM ; [facility] Tobacco Abuse 10/03/2018 SONALI SWEENEY RN BALAJI Active Last Documented On 9 12:06PM ; [facility] Note: Unchanged Plan of Treatment Findings Encounter Date Ordered Clinical summary pro vided to patient PROCEDURE OFFICE with SONALI SWEENEY RN BALAJI 10/16/2018 Last Documented On 9 11:12AM ; [facility] Ordered Clinical summary pro vided to patient 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 EXAM with SONALI SWEENEY RN BALAJI 10/03/2018 Last Documented On 9 12:12PM ; [facility] Instructions to patient Instructions for patient : B reast Self Exam discussed and technique reviewed Last Documented On 9 10:48AM ; [facility] Use a condom during sexual i ntercourse Last Documented On 9 10:48AM ; [facility] Instructed to call if excess antolin bleeding or abdominal/pelvic pain Last Documented On 9 10:48AM ; [facility] Recommend diet and exercise at least 30 min three times per week Last Documented On 9 10:48AM ; [facility] Education and Decision Aids were provided during visit for: Discussed smoking and drug u se Last Documented On 9 10:48AM ; [facility] Patient education RE: lizzie hart signals associated with hormonal contraceptive use including abdominal, chest, or leg pain, headaches or visual disturbances Last Documented On 9 10:48AM ; [facility] Patient Education: Daily lori cium and vitamin D Last Documented On 9 10:48AM ; [facility] Bacterial Vaginosis Informat ion Sheet Given Last Documented On 9 12:05PM ; [facility] Assessments Includes: Assessments for all patient encounters Findings Encounter Date Encounter for implantable padilla bdermal contraceptive PROCEDURE OFFICE with SONALI SWEENEY RN [facility] 10/16/2018 Last Documented On 9 11:12AM ; [facility] NORMAL FEMALE EXAM 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 EXAM with SONALI CRENSHAW RN BALAJI 10/03/2018 Last Documented On 9 12:12PM ; [facility] Opioid abuse 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 EXAM with SONALI SWEENEY RN BALAJI 10/03/2018 Last Documented On 9 12:12PM ; [facility] Tobacco Abuse 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 EXAM with SONALI SWEENEY RN BALAJI 10/03/2018 Last Documented On 9 12:12PM ; [facility] Instructions Includes: Instructions for all patient encounters Instructions to patient Instructions for patient : B reast Self Exam discussed and technique reviewed Last Documented On 9 10:48AM ; [facility] Use a condom during sexual i ntercourse Last Documented On 9 10:48AM ; [facility] Instructed to call if excess antolin bleeding or abdominal/pelvic pain Last Documented On 9 10:48AM ; [facility] Recommend diet and exercise at least 30 min three times per week Last Documented On 9 10:48AM ; [facility] Education and Decision Aids were provided during visit for: Discussed smoking and drug u se Last Documented On 9 10:48AM ; [facility] Patient education RE: tootienamoy hart signals associated with hormonal contraceptive use including abdominal, chest, or leg pain, headaches or visual disturbances Last Documented On 9 10:48AM ; [facility] Patient Education: Daily lori cium and vitamin D Last Documented On 9 10:48AM ; [facility] Bacterial Vaginosis Informat ion Sheet Given Last Documented On 9 12:05PM ; [facility] Medical Equipment - Implanted Devices Includes: Current and historical Devices No Medical Equipment Recorded Medications Includes: Current and historical Medications Current Medications (continue as prescribed) Zoloft 100MG Oral Tablet 10/03/2018 Provider: Diagnosis: Last Documented On 9 10:23AM By MANI PAUL ; [facility] SEROquel 300MG Oral Tablet 10/03/2018 Provider: Diagnosis: Last Documented On 9 10:26AM By MANI PAUL ; [facility] HydrOXYzine HCl 50MG Oral Tablet 10/03/2018 Provider : Diagnosis: TID Last Documented On 9 10:26AM By MANI PAUL ; [facility] Past Medications on file Acyclovir 400MG Oral Tablet 11/14/2018 - 10/10/2019 Pr ovider: SONALI SHUKLA BC Diagnosis: One tablet twice a day Last Documented On 9 12:29PM By SONALI CARSON ; [facility] Naproxen 500MG Oral Tablet 10/16/2018 - 10/21/2018 Provider: SONALI SHUKLA BC Diagnosis: Encounter for padilla rveillance of other contraceptives One tablet twice a day USE A S DIRECTED W/FOOD DON'T EXCEED 2 IN 24 HOURS Last Documented On 9 11:13AM By SONALI CARSON ; [facility] MetroNIDAZOLE 500MG Oral Tablet 10/03/2018 - 10/10/2018 Provider: SONALI SCOTT Diagnosis: Acute vaginitis One tablet twice a day ONE T WICE DAILY WITH FOOD NO ETOH Last Documented On 9 12:16PM By SONALI CARSON ; [facility] MedroxyPROGESTERone Acetate 150MG/ML Intramuscular Suspension 10/03/2018 - 09/04/2019 Provider: SONALI SCOTT Diagnosis: Encounter for ot her contraceptive management as directed DISPENSE AND PT TO RETURN TO [facility] Last Documented On 9 12:16PM By SONALI CARSON ; [facility] Nexplanon 68MG Subcutaneous Implant 10/03/2018 - 10/03 Provider: Diagnosis: Last Documented On 9 11:20AM By SONALI CARSON ; [facility] HydrOXYzine HCl 10MG Oral Tablet 10/03/2018 - 10/03/19 Provider: Diagnosis: Last Documented On 9 10:26AM By MANI PAUL ; [facility] SEROquel 100MG Oral Tablet 10/03/2018 - 10/03/2018 Pro vider: Diagnosis: Last Documented On 9 10:25AM By MANI PAUL ; [facility] MetroNIDAZOLE 500MG Oral Tablet 10/03/2018 - 10/03/2018 Provider: SONALI SHUKLA Diagnosis: Acute vaginitis One tablet twice a day ONE T WICE DAILY WITH FOOD NO ETOH Last Documented On 9 12:11PM By SONALI CARSON ; [facility] Nexplanon 68MG Subcutaneous Implant 10/03/2018 - 10/16 Provider: Diagnosis: inserted 07/04/12 07/04/15 Last Documented On 9 11:24AM By SONALI CARSON ; [facility] Medications Administered Includes: Administered Medications in patient's chart No Administered Medications Recorded Results Includes: Results from 07/02/2024 through 07/02/2025 No Results Recorded For Specified Dates History of Present Illness History of Present Illness not supported for this document type No History of Present Illness Recorded Social History Description Last Updated Activities 10/16/2018 Last Documented On 9 11:12AM ; [facility] Alcohol use: 2 drinks or less per day no ne 10/16/2018 Last Documented On 9 11:12AM ; [facility] and currently in [employer] custody 10/16/2018 Last Documented On 9 11:12AM ; [facility] Drug use 10/16/2018 Last Documented On 9 11:12AM ; [facility] Education history 10/16/2018 Last Documented On 9 11:12AM ; [facility] Educational level 10/16/2018 Last Documented On 9 11:12AM ; [facility] Not a smoker 10/16/2018 Last Documented On 9 11:12AM ; [facility] Parent(s) abusing drugs 10/16/2018 Last Documented On 9 11:12AM ; [facility] Personal history 10/16/2018 Last Documented On 9 11:12AM ; [facility] 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 10/16/2018 Last Documented On 9 11:12AM ; [facility] Sexually active 5 partners in the past y ear, last coitus 09/01/18 10/16/2018 Last Documented On 9 11:12AM ; [facility] Single 10/16/2018 Last Documented On 9 11:12AM ; [facility] Smoking status : Former smoker 9 Last Documented On 9 11:12AM ; [facility] Using heroin 10/16/2018 Last Documented On 9 11:12AM ; [facility] Procedures and Surgical History Surgical History Last Updated Surgical / procedural history tonsillect tiesha ~spina bifida repair 10/03/2018 Last Documented On 9 12:12PM ; [facility] Medical History Includes: Medical History in patient's chart Description Last Updated Contraception: Depo injection given at [facility] on 10/05/2018 10/16/2018 Last Documented On 9 11:12AM ; [facility] Treated for chlamydia 019 with Azithromycin ~scoliosis ~spina bifida ~drug overdose 07/08 fentanyl 10/03/2018 Last Documented On 9 12:12PM ; [facility] History of asthma 10/03/2018 Last Documented On 9 12:12PM ; [facility] History of chronic reflux esophagitis Last Documented On 9 12:12PM ; [facility] PRIMARY CARE PROVIDER : Miguel 9 Last Documented On 9 12:12PM ; [facility] LMP: 10/02/2012 10/03/2018 Last Documented On 9 12:12PM ; [facility] Aborta 1 10/03/2018 Last Documented On 9 12:12PM ; [facility] 1 10/03/2018 Last Documented On 9 12:12PM ; [facility] Para 0 10/03/2018 Last Documented On 9 12:12PM ; [facility] Family History Includes: Family History in patient's chart Description Last Updated Family history of diabetes mellitus fath er 10/03/2018 Last Documented On 9 12:12PM ; [facility] Family history of malignant female breas t neoplasm paternal grandma 10/03/2018 Last Documented On 9 12:12PM ; [facility] No family history of malignant neoplasm of large intestine 10/03/2018 Last Documented On 9 12:12PM ; [facility] No family history of malignant neoplasm of the ovary 10/03/2018 Last Documented On 9 12:12PM ; [facility] Review of Systems Review of Systems [...] Active Last Documented On 9 10:27AM ; [facility] Penicillin V Potassium Allergy 10/03/2018 Active Last Documented On 9 10:27AM ; [facility] Allergy 10/03/2018 Active Last Documented On 9 10:27AM ; [facility] Bactrim Allergy 10/03/2018 Active Last Documented On 9 10:27AM ; [facility] Clinical Notes Includes: Signed Clinical Notes starting from 09/09/2022 No Clinical Notes Recorded
--- OUTSIDE RECORDS SUMMARY | 2025-07-02 10:12 | XMS_ITS | Clinical Summary ---
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 Problems Includes: Problems addressed during this encounter and other active Problems Current Visit Onset Date Resolved Date Provider Karey hernandez Status Opioid Abuse 10/03/2018 SONALI Hernandez BALAJI Active Last Documented On 10/03/2018 12:06PM ; [facility] Note: Unchanged Asthma 10/03/2018 SONALI Hernandez BALAJI Active Last Documented On 9 12:08PM ; [facility] History of Esophagitis Chron ic Reflux 10/03/2018 SONALI SWEENEY RN BALAJI Active Last Documented On 9 12:06PM ; [facility] Note: Unchanged Schizoid Personality Disorder 10/03/2018 SONALI SWEENEY RN BALAJI Active Last Documented On 9 12:09PM ; [facility] Scoliosis 10/03/2018 SONALI SWEENEY RN BALAJI Active Last Documented On 9 12:08PM ; [facility] Tobacco Abuse 10/03/2018 SONALI SWEENEY RN BALAJI Active Last Documented On 9 12:06PM ; [facility] Note: Unchanged Plan of Treatment - Clinical summary provided to patient - Last Documented On 10/03/2018 12:12PM ; [facility] PT TO CALL WITH ANY CHANGE IN STATUS ALL QUESTIONS ANSWERED WITH UNDERSTANDING VERBALIZED BY PT. - Last Documented On 10/03/2018 12:12PM ; [facility] RTC 1 YEAR - Last Documented On 10/03/2018 12:12PM ; [facility] Instructions to patient Instructions for patient : B reast Self Exam discussed and technique reviewed Last Documented On 9 10:48AM ; [facility] Use a condom during sexual i ntercourse Last Documented On 9 10:48AM ; [facility] Instructed to call if excess antolin bleeding or abdominal/pelvic pain Last Documented On 9 10:48AM ; [facility] Recommend diet and exercise at least 30 min three times per week Last Documented On 9 10:48AM ; [facility] Education and Decision Aids were provided during visit for: Discussed smoking and drug u se Last Documented On 9 10:48AM ; [facility] Patient education RE: lizzie g signals associated with hormonal contraceptive use including abdominal, chest, or leg pain, headaches or visual disturbances Last Documented On 9 10:48AM ; [facility] Patient Education: Daily lori cium and vitamin D Last Documented On 9 10:48AM ; [facility] Bacterial Vaginosis Informat ion Sheet Given Last Documented On 9 12:05PM ; [facility] Assessments Includes: Assessments from this encounter Findings - NORMAL FEMALE EXAM - Last Documented On 10/03/2018 12:12PM ; [facility] - Opioid abuse - Last Documented On 10/03/2018 12:12PM ; [facility] - Tobacco Abuse - Last Documented On 10/03/2018 12:12PM ; [facility] Instructions Includes: Instructions from this encounter Instructions to patient Instructions for patient : B reast Self Exam discussed and technique reviewed Last Documented On 9 10:48AM ; [facility] Use a condom during sexual i ntercourse Last Documented On 9 10:48AM ; [facility] Instructed to call if excess antolin bleeding or abdominal/pelvic pain Last Documented On 9 10:48AM ; [facility] Recommend diet and exercise at least 30 min three times per week Last Documented On 9 10:48AM ; [facility] Education and Decision Aids were provided during visit for: Discussed smoking and drug u se Last Documented On 9 10:48AM ; [facility] Patient education RE: lizzie hart signals associated with hormonal contraceptive use including abdominal, chest, or leg pain, headaches or visual disturbances Last Documented On 9 10:48AM ; [facility] Patient Education: Daily lori cium and vitamin D Last Documented On 9 10:48AM ; [facility] Bacterial Vaginosis Informat ion Sheet Given Last Documented On 9 12:05PM ; [facility] Medical Equipment - Implanted Devices Includes: Current Devices No Medical Equipment Recorded Medications Includes: Medications discussed during this encounter and other current Medications Discontinued / Stopped on this date on 10/03/2018 HydrOXYzine HCl 10MG Oral Tablet Provider : Diagnosis: Last Documented On 9 10:26AM By MANI PAUL ; [facility] SEROquel 100MG Oral Tablet Provider: Diagnosis: Last Documented On 9 10:25AM By MANI PAUL ; [facility] New / Renewed during this visit SONALI SWEENEY RN BALAJI on 10/03/2018 MetroNIDAZOLE 500MG Oral Tablet Provider: SONALI SWEENEY RN BALAJI 7 day supply: 14 tablet, 0 refills Diagnosis: Acute vaginitis One tablet twice a day ONE T WICE DAILY WITH FOOD NO ETOH Pharmacy: [facility] - [address] [facility], [phone] - Last Documented On 9 12:16PM By SONALI CARSON ; [facility] MedroxyPROGESTERone Acetate 150MG/ML Intramuscular Suspension Provider: SONALI SWEENEY RN BALAJI 84 day supply: 1 vial, 3 refills Diagnosis: Encounter for other contraceptive management as directed DISPENSE AND PT TO RETURN TO [facility] FOR ADMINISTRATION Pharmacy: [facility]) - [address] [facility], [phone] - Last Documented On 9 12:16PM By SONALI CARSON ; [facility] Current Medications (continue as prescribed) Zoloft 100MG Oral Tablet 10/03/2018 Provider: Diagnosis: Last Documented On 9 10:23AM By MANI PAUL ; [facility] SEROquel 300MG Oral Tablet 10/03/2018 Provider: Diagnosis: Last Documented On 9 10:26AM By MANI PAUL ; [facility] HydrOXYzine HCl 50MG Oral Tablet 10/03/2018 Provider : Diagnosis: TID Last Documented On 9 10:26AM By MANI PAUL ; [facility] Past Medications on file Acyclovir 400MG Oral Tablet 11/14/2018 - 10/10/2019 Pr ovider: SONALI SCOTT Diagnosis: One tablet twice a day Last Documented On 9 12:29PM By SONALI CARSON ; [facility] Naproxen 500MG Oral Tablet 10/16/2018 - 10/21/2018 Provider: SONALI SCOTT Diagnosis: Encounter for padilla rveillance of other contraceptives One tablet twice a day USE A S DIRECTED W/FOOD DON'T EXCEED 2 IN 24 HOURS Last Documented On 9 11:13AM By SONALI CARSON ; [facility] Medications Administered Includes: Administered Medications from this encounter No Administered Medications Recorded Vital Signs Includes: Vital Signs from this encounter Vital Name 10/03/2018 10:39A Blood Pressure Sitting L 100/66 BP Cuff Size Regular Height (in) 64 Weight (lb) 116 Body Mass Index (kg/m2) 19.9 BMI Percentile (percentile) 41 Body Surface Area (m2) 1.6 Last Documented: On 10/03/2018 10:41A M ; [facility] Results Includes: Results discussed during this encounter No Results Recorded For Specified Dates History of Present Illness Includes: History of Present Illness from this encounter HPI ASTRID SOUZA is a 18 year old female. - Medication list reviewed. 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 10/03/2018 Last Documented On 9 12:12PM ; [facility] Using heroin 10/03/2018 Last Documented On 9 12:12PM ; [facility] Activities 10/03/2018 Last Documented On 9 12:12PM ; [facility] Education history 10/03/2018 Last Documented On 9 12:12PM ; [facility] Not a smoker 10/03/2018 Last Documented On 9 12:12PM ; [facility] Personal history 10/03/2018 Last Documented On 9 12:12PM ; [facility] Single 10/03/2018 Last Documented On 9 12:12PM ; [facility] Alcohol use: 2 drinks or less per day no ne 10/03/2018 Last Documented On 9 12:12PM ; [facility] Smoking status : Former smoker 9 Last Documented On 9 12:12PM ; [facility] Procedures and Surgical History Includes: Procedures from this encounter Procedures Code Diagnosis Performing Provider Service L ocation Service Date education and instructions Last Documented On 9 10:48AM ; [facility] explanation of plan Last Documented On 9 10:48AM ; [facility] evaluation of contraceptive history perf ormed Last Documented On 9 10:48AM ; [facility] education about contraceptio n performed instructed current implant 3 yrs ago Last Documented On 9 12:11PM ; [facility] reporting of contraception complications performed Last Documented On 9 10:48AM ; [facility] Discussed Contraception Pt. requests DMP A start at time of Nexplanon removal Last Documented On 9 12:09PM ; [facility] Urged Exercise and Diet , exercise at le ast 30 min three times per week Last Documented On 9 10:48AM ; [facility] Clinical summary provided to patient Last Documented On 9 10:48AM ; [facility] test was performed negative [id number] Last Documented On 9 12:03PM ; [facility] a vaginal wet mount smear for kristin wa s negative Last Documented On 9 10:48AM ; [facility] a vaginal wet mount smear for Trichomona s vaginalis was negative Last Documented On 9 10:48AM ; [facility] a vaginal wet mount smear for clue cells was positive Last Documented On 9 11:20AM ; [facility] test was negative Last Documented On 9 10:48AM ; [facility] Negative WBC [id number] Last Documented On 9 10:48AM ; [facility] Surgical History Last Updated Surgical / procedural history tonsillect tiesha ~spina bifida repair 10/03/2018 Last Documented On 9 12:12PM ; [facility] Medical History Includes: Medical History addressed during this encounter Description Last Updated Contraception: Nexplano 07/04/15 10/03/2018 Last Documented On 9 12:12PM ; [facility] Treated for chlamydia 019 with Azithromycin ~scoliosis ~spina bifida ~drug overdose 07/08 fentanyl 10/03/2018 Last Documented On 9 12:12PM ; [facility] History of asthma 10/03/2018 Last Documented On 9 12:12PM ; [facility] History of chronic reflux esophagitis Last Documented On 9 12:12PM ; [facility] PRIMARY CARE PROVIDER : Miguel 9 Last Documented On 9 12:12PM ; [facility] LMP: 10/02/2012 10/03/2018 Last Documented On 9 12:12PM ; [facility] Aborta 1 10/03/2018 Last Documented On 9 12:12PM ; [facility] 1 10/03/2018 Last Documented On 9 12:12PM ; [facility] Para 0 10/03/2018 Last Documented On 9 12:12PM ; [facility] Family History Includes: Family History addressed during this encounter Description Last Updated Family history of diabetes mellitus fath er 10/03/2018 Last Documented On 9 12:12PM ; [facility] Family history of malignant female breas t neoplasm paternal grandma 10/03/2018 Last Documented On 9 12:12PM ; [facility] No family history of malignant neoplasm of large intestine 10/03/2018 Last Documented On 9 12:12PM ; [facility] No family history of malignant neoplasm of the ovary 10/03/2018 Last Documented On 9 12:12PM ; [facility] Review of Systems Includes: Review of [...] Active Last Documented On 9 10:27AM ; [facility] Penicillin V Potassium Allergy 10/03/2018 Active Last Documented On 9 10:27AM ; [facility] [place] Allergy 10/03/2018 Active Last Documented On 9 10:27AM ; [facility] Bactrim Allergy 10/03/2018 Active Last Documented On 9 10:27AM ; [facility] Encounters Encounter Provider Location Date Check-In Time Check-Out Time Diagnosis NEW BUTTERMAKER CONTINUOUS CHURN EXAM SONALI SWEENEY RN [facility] 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
--- OUTSIDE RECORDS SUMMARY | 2025-07-02 10:12 | XMS_ITS | Clinical Summary ---
Author Organization [facility] Address [address] [place] [address] Phone Care Team Providers Care Boat Detailer Name Role Phone Unavailable Unavailable Unavailable Reason for Visit and Chief Complaint * PHONE CALL Problems Includes: Problems addressed during this encounter and other active Problems Current Visit Onset Date Resolved Date Provider Conditio n Status History of Esophagitis Chronic Reflux 10/03/2018 SONALI SWEENEY RN BALAJI Active Last Documented On 10/03/2018 12:06PM ; [facility] Note: Unchanged Past Visits Onset Date Resolved Date Provider Condition Status Opioid Abuse 10/03/2018 SONALI Hernandez BALAJI SCOTT Active Last Documented On 10/03/2018 12:06PM ; [facility] Note: Unchanged Asthma 10/03/2018 SONALI SCOTT Active Last Documented On 9 12:08PM ; [facility] Schizoid Personality Disorder 10/03/2018 SONALI SWEENEY RN BALAJI Active Last Documented On 9 12:09PM ; [facility] Scoliosis 10/03/2018 SONALI SWEENEY RN BALAJI Active Last Documented On 9 12:08PM ; [facility] Tobacco Abuse 10/03/2018 SONALI SWEENEY RN BALAJI Active Last Documented On 9 12:06PM ; [facility] Note: Unchanged Plan of Treatment No [...] Diagnosis: One tablet twice a day [facility] [address], [phone] - Last Documented On 9 12:29PM By SONALI CARSON ; [facility] Current Medications (continue as prescribed) Zoloft 100MG Oral Tablet 10/03/2018 Provider: Diagnosis: Last Documented On 9 10:23AM By MANI PAUL ; [facility] SEROquel 300MG Oral Tablet 10/03/2018 Provider: Diagnosis: Last Documented On 9 10:26AM By MANI PAUL ; [facility] HydrOXYzine HCl 50MG Oral Tablet 10/03/2018 Provider : Diagnosis: TID Last Documented On 9 10:26AM By MANI PAUL ; [facility] Past Medications on file Naproxen 500MG Oral Tablet 10/16/2018 - 10/21/2018 Provider: SONALI SWEENEY RN BALAJI Diagnosis: Encounter for padilla rveillance of other contraceptives One tablet twice a day USE A S DIRECTED W/FOOD DON'T EXCEED 2 IN 24 HOURS Last Documented On 9 11:13AM By SONALI CARSON ; [facility] MetroNIDAZOLE 500MG Oral Tablet 10/03/2018 - 10/10/2018 Provider: SONALI SHUKLA Diagnosis: Acute vaginitis One tablet twice a day ONE T WICE DAILY WITH FOOD NO ETOH Last Documented On 9 12:16PM By SONALI CARSON ; [facility] MedroxyPROGESTERone Acetate 150MG/ML Intramuscular Suspension 10/03/2018 - 09/04/2019 Provider: SONALI SHUKLA Diagnosis: Encounter for ot her contraceptive management as directed DISPENSE AND PT TO RETURN TO [facility] FOR ADMINISTRATION Last Documented On 9 12:16PM By SONALI CARSON ; [facility] Medications Administered Includes: Administered Medications from this [...] 10/03/2018 Last Documented On 9 11:05AM ; [facility] Medical History Includes: Medical History addressed during this encounter Description Last Updated Contraception: Depo injection given at [facility] on 10/05/2018 10/16/2018 Last Documented On 9 11:05AM ; [facility] Treated for chlamydia 019 with Azithromycin ~scoliosis ~spina bifida ~drug overdose 07/08 fentanyl 10/03/2018 Last Documented On 9 11:05AM ; [facility] History of asthma 10/03/2018 Last Documented On 9 11:05AM ; [facility] History of chronic reflux esophagitis Last Documented On 9 11:05AM ; [facility] PRIMARY CARE PROVIDER : Miguel 9 Last Documented On 9 11:05AM ; [facility] LMP: 10/02/2012 10/03/2018 Last Documented On 9 11:05AM ; [facility] Aborta 1 10/03/2018 Last Documented On 9 11:05AM ; [facility] 1 10/03/2018 Last Documented On 9 11:05AM ; [facility] Para 0 10/03/2018 Last Documented On 9 11:05AM ; [facility] Family History Includes: Family History addressed during this encounter Description Last Updated Family history of diabetes mellitus fath er 10/03/2018 Last Documented On 9 11:05AM ; [facility] Family history of malignant female breas t neoplasm paternal grandma 10/03/2018 Last Documented On 9 11:05AM ; [facility] No family history of malignant neoplasm of large intestine 10/03/2018 Last Documented On 9 11:05AM ; [facility] No family history of malignant neoplasm of the ovary 10/03/2018 Last Documented On 9 11:05AM ; [facility] Review of Systems Includes: Review [...] Active Last Documented On 9 10:27AM ; [facility] Penicillin V Potassium Allergy 10/03/2018 Active Last Documented On 9 10:27AM ; [facility] [place] Allergy 10/03/2018 Active Last Documented On 9 10:27AM ; [facility] Bactrim Allergy 10/03/2018 Active Last Documented On 9 10:27AM ; [facility] Encounters Encounter Provider Location Date Check-In Time Check-Out Time Diagnosis * PHONE CALL SONALI SWEENEY RN NP [facility] BUILDING CODE INSPECTOR 9 11:05AM 11:59PM Clinical Notes Includes: Clinical Notes from this encounter No Clinical Notes Recorded
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
== END 2025-07-02 10:17 | disposition home or self-care (01) ==
PROVIDERS: Emergency Provider Registered Nurse
DX: S20.219A Contusion of unspecified front wall of thorax, initial encounter (principal); M54.6 Pain in thoracic spine; F17.290 Nicotine dependence, other tobacco product, uncomplicated; V57.0XXA Driver of pick-up truck or van injured in collision with fixed or stationary object in nontraffic accident, initial encounter; Y99.0 Civilian activity done for income or pay
CPT/HCPCS: 71046; 72070; 99214; G0463